=== PATIENT | female | born 1935 | race Caucasian/White ===

== ENCOUNTER → 2017-04-13 09:13 | Outpatient (CLI) | payer MEDICARE, SELFPAY ==
[2017-04-13 09:42] LABS: Basophils % 0.6 % (0.1-2.0); Eosinophils # 0.3 K/mm3 (0.0-0.4); Eosinophils % 3.9 % (0.1-12.0); Hematocrit 42.7 % (37.0-47.0); Hemoglobin 13.4 g/dL (12.2-16.2); Lymphocytes # 1.6 K/mm3 (0.7-4.5); Lymphocytes % 23.4 K/mm3 (10-50); Mean Corpuscular HGB Conc 31.3 g/dL (31.8-35.4); Mean Corpuscular Hemoglobin 26.9 pg (27.0-31.2); Mean Corpuscular Volume 86.1 fl (81-99); Mean Platelet Volume 8.1 fl (7.4-10.4); Monocytes # 0.5 K/mm3 (0.1-1.0); Neutrophils # 4.4 K/mm3 (1.8-7.8); Neutrophils % 65.1 % (37.0-80.0); Platelet Count 241 K/mm3 (142-424); Red Blood Count 4.96 M/mm3 (4.20-5.40); Red Cell Distribution Width 14.3 % (11.5-17.5); White Blood Count 6.8 K/mm3 (4.8-10.8)
[2017-04-13 11:36] LABS: Alanine Aminotransferase 19 U/L (12-78); Albumin Level 3.6 gm/dL (3.4-5.0); Albumin/Globulin Ratio 0.9 (1.1-1.8); Alkaline Phosphatase 177 U/L (46-116); Anion Gap 12.8 mEq/L (5-15); Aspartate Amino Transferase 17 U/L (15-37); Bilirubin,Total 0.4 mg/dL (0.2-1.0); Blood Urea Nitrogen 19 mg/dL (7-18); Carbon Dioxide 33 mmol/L (21.0-32.0); Chloride 98 mmol/L (98-107); Chol/HDL Ratio 4.1 (1-3.5); Cholesterol 267 mg/dL (140-200); Creatinine,Serum 0.96 mg/dL (0.55-1.02); Estimated Glomerular Filt Rate 56 ml/min (>60); Ferritin 23 ng/mL (8-388); GFR (African American) 67 ML/MIN (>60); Globulin 3.8 gm/dl (1.3-3.2); Glucose 102 mg/dL (74-106); HDL Cholesterol 65 mg/dL (29-89); LDL Cholesterol 178 mg/dL (0-130); Potassium 4.8 mmoL/L (3.5-5.1); Sodium 139 mmol/L (136-145); Thyroid Stimulating Hormone 2.23 uIU/ml (0.358-3.740); Total Protein,Serum 7.4 gm/dL (6.4-8.2); Triglycerides 119 mg/dL (30-200); VLDL Cholesterol 24 mg/dL (0-40)
[2017-04-14 18:31] LABS: Folate 8.9 ng/mL (>3.0); Vitamin B12 >2000 pg/mL (232-1245)
== END ==
PROVIDERS: PCP Internal Medicine Adolescent Medicine; Visit Provider Nurse Practitioner Family
DX: D64.9 Anemia, unspecified (principal); I10 Essential (primary) hypertension; E53.8 Deficiency of other specified B group vitamins
CPT/HCPCS: 36415; 80053; 80061; 82607; 82728; 82746; 84443; 85025

== ENCOUNTER → 2017-08-14 15:13 | Outpatient (CLI) | payer MEDICARE, SELFPAY ==
--- NOTE | 2017-08-14 15:19 | XR_ITS ---
XR chest 2V HISTORY: Follow-up pneumonia ITS.REASON: FU PNEEMONIA ORDERING PHYSICIAN: Fannie Byrd PATIENT AGE: 82 years COMPARISON: 08/04/2017 FINDINGS: There is cardiomegaly with mild pulmonary venous congestion consistent with mild chronic CHF. There remains increased density in the right mid to lower lung zone which could be due to some underlying pneumonia. There may be some pleural thickening posteriorly. The right lungs are clear. No acute bony pelvic. IMPRESSION: 1. Mild chronic CHF. 2. Persistent increased density in the right lower lung zone area which is indeterminate. CT may be of further value if clinically warranted. Underlying pneumonia or pleural thickening is considered
== END ==
PROVIDERS: PCP Internal Medicine Adolescent Medicine; Visit Provider Nurse Practitioner Family
DX: J18.1 Lobar pneumonia, unspecified organism (principal)
CPT/HCPCS: 71046

== ENCOUNTER → 2017-08-31 09:58 | Outpatient (CLI) | payer MEDICARE, SELFPAY | PROVIDERS: Visit Provider Nurse Practitioner Family | DX: R05 Cough (principal); J18.9 Pneumonia, unspecified organism | CPT/HCPCS: 87070; 87205 ==

== ENCOUNTER → 2017-09-03 13:36 | Outpatient (CLI) | payer MEDICARE, SELFPAY ==
--- NOTE | 2017-09-03 | CT_ITS ---
CT chest wo/w con HISTORY: ITS.REASON: CHRONIC COUGH ORDERING PHYSICIAN: Fannie Byrd PATIENT AGE: 82 years COMPARISON: None Technique: Axial images obtained without and with contrast. Sagittal and coronal reformatted images are also generated and reviewed. All CT scans at the facility use one or more dose reduction, viz: automated exposure control; ma/kV adjustment per patient size (including targeted exams where dose is matched to indication; i.e. head); or iterative reconstruction technique. FINDINGS: There are scattered small nodes in the mediastinum and asim the largest node is in the precarinal region at 1.6 x 1.3 cm. There are diffuse coronary artery calcifications. Normal heart size with no evidence of pericardial effusion. No evidence of aortic aneurysm or dissection. There is tortuosity of the thoracic aorta but no evidence of aneurysm. No central pulmonary embolus apparent atelectatic/fibrotic changes are present in the lung bases.. There is a 2 mm noncalcified nodule right upper lobe anterolaterally nonspecific There is some mild bronchial thickening in the lung bases nonspecific degenerative changes are present in the thoracic spine. There is a small hiatal hernia Upper abdominal images are unremarkable. IMPRESSION: 1. No evidence of aortic aneurysm. 2. Mild bibasilar atelectasis or fibrotic change with mild bronchial thickening. 3. No acute finding. 4. 2 mm noncalcified nodule present in the right upper lobe anterolaterally to small to characterize.
[2017-09-03 14:38] LABS: Basophils % 0.6 % (0.1-2.0); Eosinophils # 0.2 K/mm3 (0.0-0.4); Eosinophils % 2.5 % (0.1-12.0); Hematocrit 40.4 % (37.0-47.0); Hemoglobin 12.3 g/dL (12.2-16.2); Lymphocytes # 1.5 K/mm3 (0.7-4.5); Lymphocytes % 20.6 K/mm3 (10-50); Mean Corpuscular HGB Conc 30.5 g/dL (31.8-35.4); Mean Corpuscular Hemoglobin 26.4 pg (27.0-31.2); Mean Corpuscular Volume 86.3 fl (81-99); Mean Platelet Volume 8.4 fl (7.4-10.4); Monocytes # 0.4 K/mm3 (0.1-1.0); Monocytes % 6.1 % (1.7-9.3); Neutrophils % 70.2 % (37.0-80.0); Platelet Count 202 K/mm3 (142-424); Red Blood Count 4.68 M/mm3 (4.20-5.40); Red Cell Distribution Width 14.8 % (11.5-17.5); White Blood Count 7.2 K/mm3 (4.8-10.8)
[2017-09-03 15:01] LABS: Hemoglobin A1C 5.6 % (0.0-7.0)
[2017-09-03 15:11] LABS: Alanine Aminotransferase 17 U/L (12-78); Albumin Level 3.5 gm/dL (3.4-5.0); Alkaline Phosphatase 147 U/L (46-116); Anion Gap 13.1 mEq/L (5-15); Aspartate Amino Transferase 17 U/L (15-37); Bilirubin,Total 0.4 mg/dL (0.2-1.0); Blood Urea Nitrogen 27 mg/dL (7-18); Calcium 9.3 mg/dL (8.5-10.1); Carbon Dioxide 30 mmol/L (21.0-32.0); Chloride 100 mmol/L (98-107); Creatinine,Serum 1.49 mg/dL (0.55-1.02); Estimated Glomerular Filt Rate 33 ml/min (>60); GFR (African American) 40 ML/MIN (>60); Globulin 3.5 gm/dl (1.3-3.2); Glucose 99 mg/dL (74-106); Potassium 5.1 mmoL/L (3.5-5.1); Sodium 138 mmol/L (136-145)
[2017-09-06 06:17] LABS: Vitamin B12 >2000 pg/mL (232-1245)
== END ==
PROVIDERS: PCP Internal Medicine Adolescent Medicine; Visit Provider Nurse Practitioner Family
DX: R05 Cough (principal); J18.9 Pneumonia, unspecified organism; Z79.899 Other long term (current) drug therapy
CPT/HCPCS: 36415; 71270; 80053; 82607; 83036; 85025; Q9967

== ENCOUNTER → 2017-11-12 18:04 | Outpatient (REF) | payer MEDICARE, SELFPAY | LOC: LAB 18:04 | PROVIDERS: Visit Provider Podiatrist | DX: B35.1 Tinea unguium (principal) | CPT/HCPCS: 87102; 87206; 87220 ==

== ENCOUNTER → 2018-01-10 09:41 | Outpatient (CLI) | payer MEDICARE, SELFPAY ==
[2018-01-10 10:21] LABS: Basophils % 0.5 % (0.1-2.0); Eosinophils # 0.3 K/mm3 (0.0-0.4); Hematocrit 37.5 % (37.0-47.0); Hemoglobin 11.8 g/dL (12.2-16.2); Lymphocytes # 1.2 K/mm3 (0.7-4.5); Lymphocytes % 20.3 K/mm3 (10-50); Mean Corpuscular HGB Conc 31.4 g/dL (31.8-35.4); Mean Corpuscular Hemoglobin 27.4 pg (27.0-31.2); Mean Corpuscular Volume 87.5 fl (81-99); Mean Platelet Volume 7.5 fl (7.4-10.4); Monocytes # 0.4 K/mm3 (0.1-1.0); Neutrophils # 3.9 K/mm3 (1.8-7.8); Neutrophils % 67.3 % (37.0-80.0); Platelet Count 223 K/mm3 (142-424); Red Blood Count 4.28 M/mm3 (4.20-5.40); Red Cell Distribution Width 14.6 % (11.5-17.5); White Blood Count 5.9 K/mm3 (4.8-10.8)
[2018-01-10 10:50] LABS: Anion Gap 9.9 mEq/L (5-15); Blood Urea Nitrogen 16 mg/dL (7-18); Calcium 8.8 mg/dL (8.5-10.1); Carbon Dioxide 33 mmol/L (21.0-32.0); Chloride 102 mmol/L (98-107); Creatinine,Serum 0.85 mg/dL (0.55-1.02); Estimated Glomerular Filt Rate 64 ml/min (>60); GFR (African American) 77 ML/MIN (>60); Glucose 88 mg/dL (74-106); Potassium 4.9 mmoL/L (3.5-5.1); Sodium 140 mmol/L (136-145)
== END ==
PROVIDERS: PCP Internal Medicine Adolescent Medicine; Visit Provider Nurse Practitioner Family
DX: R79.89 Other specified abnormal findings of blood chemistry (principal)
CPT/HCPCS: 36415; 80048; 85025

== ENCOUNTER → 2018-01-25 14:19 | Outpatient (CLI) | payer MEDICARE, SELFPAY | PROVIDERS: Visit Provider Nurse Practitioner Family | DX: J18.9 Pneumonia, unspecified organism (principal) | CPT/HCPCS: 87070; 87077; 87186; 87205 ==

== ENCOUNTER → 2018-05-30 11:34 | Outpatient (CLI) | payer MEDICARE, SELFPAY ==
--- NOTE | 2018-05-30 11:43 | XR_ITS ---
XR hand RT min 3V HISTORY: The thyroid performed body, cyst at the DIP joint of the second digit ITS.REASON: RT FINGER CYST ORDERING PHYSICIAN: Fannie Byrd PATIENT AGE: 82 years COMPARISON: None FINDINGS: There are mild osteoarthritic changes at the DIP joint of the second digit at the PIP joint of the fifth digit with mild deformity of the distal aspect of the proximal phalanx of the fifth digit and may be due to an old fracture. 6 mm soft tissue density is present along the radial aspect of the DIP joint of the second digit and may represent the reported cyst. No radio opaque foreign bodies are evident. IMPRESSION: Mild osteoarthritis. No radiopaque foreign body. Small soft tissue lesion at the DIP joint of the second digit
== END ==
PROVIDERS: PCP Nurse Practitioner Family; Visit Provider Nurse Practitioner Family
DX: M67.449 Ganglion, unspecified hand (principal)
CPT/HCPCS: 73130

== ENCOUNTER → 2018-10-10 12:10 | Outpatient (CLI) | payer MEDICARE, SELFPAY ==
[2018-10-10 13:07] LABS: Basophils % 0.6 % (0.1-2.0); Eosinophils # 0.2 K/mm3 (0.0-0.4); Eosinophils % 2.7 % (0.1-12.0); Hemoglobin 11.5 g/dL (12.2-16.2); Lymphocytes # 1.2 K/mm3 (0.7-4.5); Lymphocytes % 16.6 % (10-50); Mean Corpuscular HGB Conc 30.2 g/dL (31.8-35.4); Mean Corpuscular Hemoglobin 25.6 pg (27.0-31.2); Mean Corpuscular Volume 84.9 fl (81-99); Mean Platelet Volume 8.9 fl (7.4-10.4); Monocytes # 0.4 K/mm3 (0.1-1.0); Neutrophils # 5.4 K/mm3 (1.8-7.8); Neutrophils % 75.2 % (37.0-80.0); Platelet Count 239 K/mm3 (142-424); Red Blood Count 4.47 M/mm3 (4.20-5.40); Red Cell Distribution Width 15.4 % (11.5-17.5); White Blood Count 7.1 K/mm3 (4.8-10.8)
[2018-10-10 15:12] LABS: Alanine Aminotransferase 13 U/L (12-78); Albumin Level 3.3 gm/dL (3.4-5.0); Albumin/Globulin Ratio 0.9 (1.1-1.8); Alkaline Phosphatase 170 U/L (46-116); Anion Gap 14.2 mEq/L (5-15); Aspartate Amino Transferase 8 U/L (15-37); Bilirubin,Total 0.3 mg/dL (0.2-1.0); Blood Urea Nitrogen 23 mg/dL (7-18); Calcium 9.1 mg/dL (8.5-10.1); Carbon Dioxide 30 mmol/L (21.0-32.0); Chloride 99 mmol/L (98-107); Creatinine,Serum 1.16 mg/dL (0.55-1.02); Estimated Glomerular Filt Rate 45 ml/min (>60); GFR (African American) 54 ML/MIN (>60); Globulin 3.6 gm/dl (1.3-3.2); Glucose 102 mg/dL (74-106); Potassium 5.2 mmoL/L (3.5-5.1); Sodium 138 mmol/L (136-145); Total Protein,Serum 6.9 gm/dL (6.4-8.2)
[2018-10-10 15:25] LABS: Hemoglobin A1C 6.2 % (0.0-7.0)
[2018-10-11 15:04] LABS: Vitamin B12 >2000 pg/mL (232-1245)
== END ==
PROVIDERS: Visit Provider Nurse Practitioner Family
DX: R73.03 Prediabetes (principal); I10 Essential (primary) hypertension; E53.8 Deficiency of other specified B group vitamins
CPT/HCPCS: 36415; 80053; 82607; 83036; 85025

== ENCOUNTER 2019-02-19 | Inpatient (IN) ==
[2019-02-19 00:36] LABS: Microscopic, Urine URINE MICROSCOPIC (MICROSCOPIC)
[2019-02-19 00:39] LABS: Appearance,Urine CLEAR (Clear); Bilirubin,Urine Negative (Negative); Blood, Urine Negative (Negative); Color,Urine YELLOW (Yellow); Glucose,Urine (UA) Negative (Negative); Ketones,Urine Negative (Negative); Leukocyte Esterase,Urine Negative (Negative); PH,Urine 5.5 (5.0-8.5); Protein,Urine Negative (Negative); Specific Gravity, Urine 1.015 (1.005-1.030); Urobilinogen,Urine 0.2 EU/dl (0.2)
[2019-02-19 00:50] LABS: Basophils % 0.3 % (0.1-2.0); Eosinophils # 0.1 K/mm3 (0.0-0.4); Eosinophils % 0.5 % (0.1-12.0); Hemoglobin 12.3 g/dL (12.2-16.2); Lymphocytes # 0.7 K/mm3 (0.7-4.5); Lymphocytes % 7.4 % (10-50); Mean Corpuscular HGB Conc 30.8 g/dL (31.8-35.4); Mean Corpuscular Volume 86.2 fl (81-99); Mean Platelet Volume 8.8 fl (7.4-10.4); Monocytes # 0.4 K/mm3 (0.1-1.0); Monocytes % 4.2 % (1.7-9.3); Neutrophils # 7.9 K/mm3 (1.8-7.8); Neutrophils % 87.5 % (37.0-80.0); Platelet Count 194 K/mm3 (142-424); Red Blood Count 4.64 M/mm3 (4.20-5.40); Red Cell Distribution Width 16.2 % (11.5-17.5); White Blood Count 9.1 K/mm3 (4.8-10.8)
[2019-02-19 01:00] LABS: Albumin Level 3.3 gm/dL (3.4-5.0); Albumin/Globulin Ratio 0.8 (1.1-1.8); Anion Gap 13.6 mEq/L (5-15); Bilirubin,Total 0.3 mg/dL (0.2-1.0); Calcium 8.7 mg/dL (8.5-10.1); Total Protein,Serum 7.3 gm/dL (6.4-8.2)
[2019-02-19 01:12] LABS: Bacteria,Urine 1+ /lpf; WBC,Urine Occasional #/hpf (0-3)
[2019-02-19 01:19] LABS: C-Reactive Protein 1.6 mg/dL (0.0-0.9)
[2019-02-19 01:36] LABS: Eosinophils % 1 % (0-3); Lymphocytes % 2 % (10-50); Neutrophils % 96 % (42-76); Ovalocytes 1+; Stomatocytes 1+; Total Cells Counted 100
--- NOTE | 2019-02-19 03:17 | Emergency Department Note ---
ED Disposition Clinical Impression: Renal insufficiency, Obesity (BMI 30-39.9) CAP (community acquired pneumonia) Qualifiers: Laterality: right Lung location: lower lobe of lung Qualified Code(s): J18.9 - Pneumonia, unspecified organism Disposition: Admitted as Observation Condition on Discharge: Fair Referrals: Per Hoyos MD [Primary Care Provider] - - Critical Care Critical Care Time: No Attestation: On 02/19/19, the high probability of a clinically significant, sudden or life threatening deterioration of the following system(s) required my full and direct attention, intervention and personal management. The time I documented below is in addition to time spent performing reported procedures but includes the following listed in this critical care notation. Medical Decision Making - Medical Records Medical records reviewed: Yes: I reviewed the patient's medical records. - Elie Inquiry Pt receiving controlled substance: No Vital Signs: 02/19/19 00:02 02/19/19 00:21 02/19/19 03:48 Temperature 100.6 F H 98.5 F Temperature Source Oral Oral Oral Pulse Rate [Right] 93 H Respiratory Rate 20 20 Blood Pressure [Right Arm] 150/79 H Blood Pressure Mean [Right Arm] 102 Blood Pressure Source [Right Arm] Automatic Cuff Blood Pressure Position [Right Arm] Supine 02 Sat by Pulse Oximetry 89 L 89 L Oxygen Delivery Method Room Air Room Air - Lab Data Lab results reviewed: Yes: I reviewed the patient's lab results. Lab Results 02/19/19 00:10: Urine Color Yellow, Urine Appearance Clear, Urine pH 5.5, Ur Specific [place] 1.015, Urine Protein Negative, Urine Glucose (UA) Negative, Urine Ketones Negative, Urine Blood Negative, Urine Nitrate Negative, Urine Bilirubin Negative, Urine Urobilinogen 0.2, Ur Leukocyte Esterase Negative, Urine WBC Occasional, Ur Squamous Epith Cells 5-10, Urine Bacteria 1+ 02/19/19 00:35: WBC 9.1, RBC 4.64, Hgb 12.3, Hct 40.0, MCV 86.2, MCH 26.6 L, MC HC 30.8 L, RDW 16.2, Plt Count 194, MPV 8.8, Neut % (Auto) 87.5 H, Lymph % (Auto) 7.4 L, [place] % (Auto) 4.2, Eos % (Auto) 0.5, Baso % (Auto) 0.3, Neut # (Auto) 7.9 H, Lymph # (Auto) 0.7, [place] # (Auto) 0.4, Eos # (Auto) 0.1, Baso # (Auto) 0.0, Total Counted 100, Neutrophils % (Manual) 96 H, Lymphocytes % (Manual) 2 L, Eosinophils % (Manual) 1, Basophils % (Manual) 1.0, Platelet Estimate Normal, Ovalocytes 1+, Stomatocytes 1+ 02/19/19 00:35: Sodium 138, Potassium 4.6, Chloride 102, Carbon Dioxide 27, Anion Gap 13.6, BUN 27 H, Creatinine 1.23 H, Estimated Creat Clear -44 L, Estimated GFR 42 L, Est GFR ( Amer) 50 L, Glucose 130 H, Calcium 8.7, Total Bilirubin 0.3, AST 15, ALT 11 L, Alkaline Phosphatase 166 H, Total Protein 7.3, Albumin 3.3 L, Globulin 4.0 H, Albumin/Globulin Ratio 0.8 L 02/19/19 00:35: Lactate 1.3 02/19/19 00:35: ESR 78 H 02/19/19 00:35: Troponin I < 0.02, C-Reactive Protein 1.6 H 02/19/19 04:01: Troponin I < 0.02 02/19/19 04:08: Influenza Type A Ag Negative, Influenza Type B Ag Negative Result diagrams: 02/19/19 00:35 02/19/19 00:35 Orders (Tests/Meds): ED MEDICATIONS Generic Name Dose Route Start Last Admin Trade Name Freq PRN Reason Stop Dose Admin Sodium Chloride 1,000 mls @ 999 mls/hr 02/19/19 00:30 02/19/19 00:50 Sod Chlor 0.9% 1000ml Bag IV 02/19/19 01:30 999 mls/hr .Q1H1M YESI Administration Azithromycin 500 mg/ Sodium 250 mls @ 250 mls/hr 02/19/19 03:15 02/19/19 03:33 Chloride IV 03/05/19 03:14 250 mls/hr Q24H YESI Administration Protocol Ceftriaxone Sodium 1 gm/ 50 mls @ 100 mls/hr 02/19/19 03:15 02/19/19 03:19 Sodium Chloride IV 03/05/19 03:14 100 mls/hr Q24H YESI Administration Protocol Discontinued Medications Generic Name Dose Route Start Last Admin Trade Name Caitie PRN Reason Stop Dose Admin Acetaminophen 650 mg 02/19/19 00:32 02/19/19 00:50 Acetaminophen 325mg Tab PO 02/19/19 00:33 325 mg ONCE ONE Administration Methylprednisolone Sodium Succinate 125 mg 02/19/19 00:30 02/19/19 00:50 Solu-Medrol 125mg/2ml Vial IV 02/19/19 00:31 125 mg ONCE ONE Administration ORDERS Category Date Time Status Troponin I Q3H Lab 02/19/19 07:00 Ordered Blood Culture Stat Micro 02/19/19 00:35 Received Sputum Culture & Gram Stain Stat Micro 02/19/19 00:35 Results - Radiology Data #1 Image(s): Chest Image Reviewed: Yes I reviewed the patient's radiology image Preliminary Findings: Abnormal (patchy changes rt base ) - ECG Data Tracing #1 Normal Sinus Rhythm: Yes Ischemic changes: non-specific ST-T wave changes - Physician Consults Physician Consulted: jose martin Reason -: Admission - NESSA Score for Non-Stemi Age of Patient: 80-89 years old Heart Rate: 90-109 bpm Systolic Blood Pressure: 140-159 mmHg Serum Creatinine: 1.20-1.59 mg/dl CHF [place] Class: I-No CHF Other Risk Factors: None Non-Stemi Risk Score: 140 Resp/SOB HPI - General Chief Complaint: Fever Stated Complaint: Fever,cough,confused Time Seen by Provider: 02/19/19 00:10 Mode of Arrival: Wheelchair Source of Information: Patient, Spouse, Medical Record Limitations: No Limitations Description of Symptoms (Recalled from ER Triage Doc. by RN): Pt states she had a fever with confusion at home tonight - History of Present Illness pt with fever with cough and confusion worse tonight - no vomiting reported MD Complaint: shortness of breath, cough Onset (ago): day(s) Severity: moderate Associated symptoms: fever, cough Treatment prior to arrival: none - Related Data Home oxygen amount: none Home Medications Medication Instructions Recorded Confirmed aspirin 81 mg tablet,delayed 81 mg PO ONCE 05/21/17 02/19/19 release atenolol 50 mg tablet 50 mg PO Q12H 05/21/17 02/19/19 cyanocobalamin (vit B-12) 1,000 2,500 mcg PO ONCE tab 05/21/17 02/19/19 mcg tablet furosemide 20 mg tablet 40 mg PO DAILY tab 05/21/17 02/19/19 gabapentin 300 mg capsule 300 mg PO Q6H cap 05/21/17 02/19/19 hydrocodone 10 mg-acetaminophen 1 tab PO Q6H 05/21/17 02/19/19 325 mg tablet lisinopril 20 mg tablet 20 mg PO ONCE 05/21/17 02/19/19 potassium chloride ER 10 mEq 10 meq PO DAILY 90 Days #90 11/12/17 02/19/19 tablet,extended release(part/cryst) Allergies Allergy/AdvReac Type Severity Reaction Status Date / Time No Known Allergies Allergy Verified 12/19/18 10:04 [facility] History - Hepatitis A Screen Drug use history?: No High risk sexual behaviors?: No History of sexually transmitted infection?: No Currently employed?: No Childcare worker?: No Do you have indoor plumbing?: Yes Do you have electricity?: Yes Attestation statement:: This patient has been screened for Hepatitis A risk factors. I have reviewed the patient's past medical history: Yes Medical History: Reports:: Hypertension Denies:: Cancer, Diabetes Mellitus Type 1, Diabetes Mellitus Type 2, Internal Pacemaker, MRSA Other Medical History: Reports: Arthritis Laterality Cases: Right: Arthroscopy Knee, Bilateral: Tonsillectomy Other Surgeries: Yes: Appendectomy, Cholecystectomy, Hysterectomy-Total. No: Pacemaker Amputation: No Fractures: No Comment: cyst removed - Social History Smoking Status: Never smoker Alcohol Intake: never Alcohol Intake Frequency:: other Occupational Status: retired Family Hx:: Unable to obtain ROS Obtained: Yes All systems reviewed & no additional complaints - Constitutional Constitutional: Reports fever(s), Reports weakness - Eyes Eyes: Denies change in vision - ENT Ears, Nose, Mouth, and Throat: Denies sore throat - Cardiovascular Cardiovascular: Denies chest pain - Respiratory Respiratory: Yes as per HPI, Yes cough, No non-productive cough - Gastrointestinal Gastrointestingal: Denies: abdominal pain, vomiting - Genitourinary Female Genitourinary: Denies hematuria - Musculoskeletal Musculoskeletal: Denies joint pain, Denies joint swelling, Denies neck pain - Integumentary/Breasts Skin/Breast: Denies rash - Neurologic Neurologic: Reports as per HPI, Reports confusion, Denies focal weakness, Denies headache(s), Denies loss of vision, Denies seizure-like activity Physical Exam - General General appearance: alert - Head Head exam: normocephalic - Eye Eye exam: Present: PERRL, EOMI. Absent: scleral icterus - ENT ENT exam: Present: mucous membranes dry - Neck Neck exam: Present: trachea midline - Respiratory Respiratory exam: Present: other (bilat rhonchi ). Absent: respiratory distress - Cardiovascular Cardiovascular exam: Present: regular rate, systolic murmur, +S4 - Abdominal Exam Abdominal exam: Present: soft - Extremities Exam Extremities exam: Present: pedal edema. Absent: calf tenderness - Neurological Exam Neurological exam: Present: alert, CN II-XII intact. Absent: motor sensory deficit - Skin Skin exam: Absent: rash
--- NOTE | 2019-02-19 07:24 | Pharmacy Consult Notes ---
[facility] Pharmacy VTE Monitoring - Patient Demographics Admission date: 02/18/19 Report Date: 02/19/19 Time: 07:23 Allergies/Adverse Reactions: Patient Allergies No Known Allergies Allergy (Verified 12/19/18 10:04) Height: 1.52 m Weight: 88.904 kg Patient Problems: Current Active Problems Renal insufficiency (Acute) Obesity (BMI 30-39.9) (Acute) CAP (community acquired pneumonia) (Acute) - VTE Risk Labs: VTE Related Lab Results Hgb 12.3 g/dL (12.2-16.2) 02/19/19 00:35 Hct 40.0 % (37.0-47.0) 02/19/19 00:35 Plt Count 194 K/mm3 (142-424) 02/19/19 00:35 BUN 27 mg/dL (7-18) H 02/19/19 00:35 Creatinine 1.23 mg/dL (0.55-1.02) H 02/19/19 00:35 Estimated Creat Clear -44 mL/min (50-200) L 02/19/19 00:35 Was VTE Risk Assessment Performed: Yes VTE Score: 4 VTE Risk Level: Low Risk Clinical Trial Participant: No - Prophylaxis VTE Prophylaxis Ordered?: Yes Types of VTE Prophylaxis: TEDS Knee High
--- NOTE | 2019-02-19 08:31 | History & Physical Report ---
*Admission Date: 02/18/19 *Chief complaint: Cough/congestion *History of present illness: 83-year-old white female with history of CHF, history of COPD and oxygen requirements, who resented to the emergency department cough, congestion and fever, found to have community acquired pneumonia and admitted to hospital given her multiple comorbidities. [facility] History I have reviewed the patient's past medical history: Yes Medical History: Reports:: Hypertension Denies:: Cancer, Diabetes Mellitus Type 1, Diabetes Mellitus Type 2, Internal Pacemaker, MRSA *Have you ever received a pneumonia vaccine?: Yes *Have you received a flu vaccine this season?: Yes Other Medical History: Reports: Arthritis Laterality Cases: Right: Arthroscopy Knee, Bilateral: Tonsillectomy Other Surgeries: Yes: Appendectomy, Cholecystectomy, Colonoscopy, Hysterectomy- Total. No: Pacemaker Amputation: No Fractures: No - *Social History Smoking Status: Never smoker Alcohol Intake: never Alcohol Intake Frequency:: other *Occupational Status:: retired *Travel in the last 8 weeks: None Family Hx:: Unable to obtain Review of Systems - Review of Systems Review of systems:: pertinent systems reviewed and negative unless documented below - Constitutional Reports malaise, Reports weakness - Eyes Denies blind spots - ENT Reports poor balance, Reports dizziness, Denies abnormal hearing - *Cardiovascular Reports shortness of breath, Reports shortness of breath with activity, Denies chest pain - *Respiratory Reports change in phlegm color, Reports chest congestion - *Gastrointestinal Denies abdominal pain - *Neurologic Reports confusion, Reports weakness, Denies localized weakness, Denies headache(s), Denies loss of vision, Denies seizure-like activity Meds Home Medications Medication Instructions Recorded Confirmed Type aspirin 81 mg tablet,delayed 81 mg PO DAILY 05/21/17 02/19/19 History release atenolol 50 mg tablet 50 mg PO HS 05/21/17 02/19/19 History cyanocobalamin (vit B-12) 1,000 2,500 mcg PO DAILY tab 05/21/17 02/19/19 History mcg tablet furosemide 20 mg tablet 20 mg PO BID tab 05/21/17 02/19/19 History gabapentin 300 mg capsule 300 mg PO Q6H cap 05/21/17 02/19/19 History hydrocodone 10 mg-acetaminophen 1 tab PO Q6HP PRN 05/21/17 02/19/19 History 325 mg tablet lisinopril 20 mg tablet 20 mg PO DAILY 05/21/17 02/19/19 History potassium chloride ER 10 mEq 10 meq PO DAILY 90 Days #90 11/12/17 02/19/19 History tablet,extended release(part/cryst) Allergies Allergy/AdvReac Type Severity Reaction Status Date / Time No Known Allergies Allergy Verified 12/19/18 10:04 Exam Vital signs and Labs for Last 24 Hours: Temp Pulse Resp BP Pulse Ox 98.9 F 100 H 20 140/74 93 L 02/19/19 05:45 02/19/19 06:12 02/19/19 05:45 02/19/19 05:45 02/19/19 05:45 Laboratory Results - last 24 hr 02/19/19 00:10: Urine Color Yellow, Urine Appearance Clear, Urine pH 5.5, Ur Specific [place] 1.015, Urine Protein Negative, Urine Glucose (UA) Negative, Urine Ketones Negative, Urine Blood Negative, Urine Nitrate Negative, Urine Bilirubin Negative, Urine Urobilinogen 0.2, Ur Leukocyte Esterase Negative, Urine WBC Occasional, Ur Squamous Epith Cells 5-10, Urine Bacteria 1+ 02/19/19 00:35: WBC 9.1, RBC 4.64, Hgb 12.3, Hct 40.0, MCV 86.2, MCH 26.6 L, MCHC 30.8 L, RDW 16.2, Plt Count 194, MPV 8.8, Neut % (Auto) 87.5 H, Lymph % (Auto) 7.4 L, [place] % (Auto) 4.2, Eos % (Auto) 0.5, Baso % (Auto) 0.3, Neut # (Auto) 7.9 H, Lymph # (Auto) 0.7, [place] # (Auto) 0.4, Eos # (Auto) 0.1, Baso # (Auto) 0.0, Total Counted 100, Neutrophils % (Manual) 96 H, Lymphocytes % (Manual) 2 L, Eosinophils % (Manual) 1, Basophils % (Manual) 1.0, Platelet Estimate Normal, Ovalocytes 1+, Stomatocytes 1+ 02/19/19 00:35: Sodium 138, Potassium 4.6, Chloride 102, Carbon Dioxide 27, Anion Gap 13.6, BUN 27 H, Creatinine 1.23 H, Estimated Creat Clear -44 L, Estimated GFR 42 L, Est GFR ( Amer) 50 L, Glucose 130 H, Calcium 8.7, Total Bilirubin 0.3, AST 15, ALT 11 L, Alkaline Phosphatase 166 H, Total Protein 7.3, Albumin 3.3 L, Globulin 4.0 H, Albumin/Globulin Ratio 0.8 L 02/19/19 00:35: Lactate 1.3 02/19/19 00:35: ESR 78 H 02/19/19 00:35: Troponin I < 0.02, C-Reactive Protein 1.6 H 02/19/19 03:35: Magnesium 1.8 02/19/19 04:01: Troponin I < 0.02 02/19/19 04:08: Influenza Type A Ag Negative, Influenza Type B Ag Negative 02/19/19 07:15: Troponin I < 0.02 I & O for Last 24 hours: Intake & Output 02/16/19 02/17/19 02/18/19 02/19/19 11:59 11:59 11:59 11:59 Weight 196 lb Microbiology Reports for the Last 24 Hours: Microbiology 02/19/19 00:35 Sputum - Expectorated Sputum Gram Stain - Final Narrative: Patient is alert. Oriented x3. Wishes to go home. Oropharynx clear. No JVD. Lungs have rhonchi and crackles throughout. Abdomen soft. Heart rate regular. No edema or clubbing. Neurologic exam intact. Assessment and Plan (1) CHF (congestive heart failure), NYHA class I Current visit: Yes Status: Acute Qualifiers: Congestive heart failure type: combined Congestive heart failure chronicity: chronic Qualified Code(s): I50.42 - Chronic combined systolic (congestive) and diastolic (congestive) heart failure Category: Medical Code(s): I50.9 - Heart failure, unspecified (2) COPD (chronic obstructive pulmonary disease) with chronic bronchitis Current visit: Yes Status: Acute Category: Medical Code(s): J44.9 - Chronic obstructive pulmonary disease, unspecified (3) CAP (community acquired pneumonia) Current visit: Yes Status: Acute Qualifiers: Laterality: right Lung location: lower lobe of lung Qualified Code(s): J18.9 - Pneumonia, unspecified organism Category: Medical Code(s): J18.9 - Pneumonia, unspecified organism (4) Obesity (BMI 30-39.9) Current visit: Yes Status: Acute Category: Medical Code(s): E66.9 - Obesity, unspecified (5) Renal insufficiency Current visit: Yes Status: Acute Category: Medical Code(s): N28.9 - Disorder of kidney and ureter, unspecified - Assessment and plan all Dx Assessment and Plan for all problems:: I agree with admission given her multiple comorbidities. Await culture results. Check labs tomorrow. Given her cardiac issues and COPD problems teasing out wh ether or not she actually has a lobar pneumonia may be difficult. Reimage tomorrow with nonportable chest x-ray if no improvement.
[2019-02-20 06:47] LABS: Basophils % 0.2 % (0.1-2.0); Eosinophils % 0.1 % (0.1-12.0); Hematocrit 36.6 % (37.0-47.0); Hemoglobin 11.1 g/dL (12.2-16.2); Lymphocytes # 0.8 K/mm3 (0.7-4.5); Lymphocytes % 5.9 % (10-50); Mean Corpuscular HGB Conc 30.4 g/dL (31.8-35.4); Mean Corpuscular Volume 88.6 fl (81-99); Mean Platelet Volume 8.8 fl (7.4-10.4); Monocytes # 0.6 K/mm3 (0.1-1.0); Monocytes % 4.1 % (1.7-9.3); Neutrophils # 12.5 K/mm3 (1.8-7.8); Neutrophils % 89.7 % (37.0-80.0); Platelet Count 179 K/mm3 (142-424); Red Blood Count 4.13 M/mm3 (4.20-5.40); Red Cell Distribution Width 16.6 % (11.5-17.5)
[2019-02-20 07:15] LABS: Anion Gap 11.3 mEq/L (5-15); Calcium 8.4 mg/dL (8.5-10.1)
[2019-02-20 08:12] LABS: Lymphocytes % 5 % (10-50); Monocytes % 9 % (2-9); Neutrophils % 86 % (42-76); RBC Morphology Normal; Total Cells Counted 100
--- NOTE | 2019-02-20 11:00 | Discharge Summary ---
General - General Admission date:: 02/19/19 Discharge date: 02/20/19 HPI HPI: 83-year-old white female with history of CHF, history of COPD and oxygen requirements, who resented to the emergency department cough, congestion and fever, found to have community acquired pneumonia and admitted to hospital given her multiple comorbidities. Hospital Course Hospital Course: Admitted for pneumonia. Tolerated IV antibiotics and supplemental oxygen. Symptoms improving. This morning states she feels much better. Denies any fever, nausea, vomiting. Does states she feels short of breath however. Was assessed for oxygen on room air and found to have O2 sats of 87. Will set up with oxygen in the outpatient setting. Plan to continue oral antibiotics for total of 7 days for community-acquired pneumonia therapy. Follow-up in the office in a week for reassessment. Patient otherwise hemodynamically stable. Tolerating good p.o. intake. Sitting in bedside chair on exam today Objective Vital signs: Temp Pulse Resp BP Pulse Ox 97.7 F 80 18 120/60 98 02/20/19 08:00 02/20/19 08:00 02/20/19 08:00 02/20/19 08:00 02/20/19 08:00 Narrative: Patient is alert. Oriented x3. Sitting in bedside chair on supplemental oxygen Oropharynx clear. No JVD. Mucous membranes Lungs with coarse crackles in right lower lobe. Otherwise clear to auscultation throughout anterior and left posterior lung [place] Heart rate regular, no murmur Abdomen soft. No edema or clubbing. Neurologic exam intact. Results Labs on day of discharge: Labs from last 24 hours 02/20/19 02/20/19 06:21 06:21 WBC 14.0 H D RBC 4.13 L Hgb 11.1 L Hct 36.6 L MCV 88.6 MCH 26.9 L MCHC 30.4 L RDW 16.6 Plt Count 179 MPV 8.8 Neut % (Auto) 89.7 H Lymph % (Auto) 5.9 L [place] % (Auto) 4.1 Eos % (Auto) 0.1 Baso % (Auto) 0.2 Neut # (Auto) 12.5 H Lymph # (Auto) 0.8 [place] # (Auto) 0.6 Eos # (Auto) 0.0 Baso # (Auto) 0.0 Total Counted 100 Neutrophils % (Manual) 86 H Lymphocytes % (Manual) 5 L Monocytes % (Manual) 9 Platelet Estimate Normal RBC Morphology Normal Sodium 143 Potassium 4.3 Chloride 109 H Carbon Dioxide 27 Anion Gap 11.3 BUN 24 H Creatinine 0.86 D Estimated Creat Clear 59 Estimated GFR 63 Est GFR ( Amer) 76 D Glucose 103 Calcium 8.4 L Preliminary micro results at discharge 02/19/19 00:35 Sputum Culture - Preliminary Sputum - Expectorated Sputum DS: Diagnosis - Discharge Diagnosis (1) CHF (congestive heart failure), NYHA class I Status: Chronic (2) COPD (chronic obstructive pulmonary disease) with chronic bronchitis Status: Chronic (3) CAP (community acquired pneumonia) Status: Acute (4) Obesity (BMI 30-39.9) Status: Chronic (5) Renal insufficiency Status: Resolved Discharge Plan - Patient Discharge Instructions ACTIVITY: Continue current activity DIET: continue same diet Patient Instructions: DI for Pneumonia -- Adult - Follow up Plan Follow up with: Fannie Byrd APRN [Nurse Practitioner] - Disposition: Home, Self-[facility] Medications: Home Medications Medication Instructions Recorded Confirmed Type aspirin 81 mg tablet,delayed 81 mg PO DAILY 05/21/17 02/19/19 History release atenolol 50 mg tablet 50 mg PO HS 05/21/17 02/19/19 History cyanocobalamin (vit B-12) 1,000 2,500 mcg PO DAILY tab 05/21/17 02/19/19 History mcg tablet furosemide 20 mg tablet 20 mg PO BID tab 05/21/17 02/19/19 History gabapentin 300 mg capsule 600 mg PO Q6H cap 05/21/17 02/19/19 History hydrocodone 10 mg-acetaminophen 1 tab PO Q6HP PRN 05/21/17 02/19/19 History 325 mg tablet lisinopril 20 mg tablet 20 mg PO DAILY 05/21/17 02/19/19 History potassium chloride ER 10 mEq 10 meq PO DAILY 90 Days #90 11/12/17 02/19/19 History tablet,extended release(part/cryst) Azithromycin [Azithromycin 500mg 500 mg PO DAILY 1 Days #1 tab 02/20/19 Rx Tab] Cefdinir [Omnicef 300mg Capsule] 300 mg PO BID 5 Days #10 cap 02/20/19 Rx Prescriptions/Medication Reconciliation: Continued gabapentin 300 mg capsule 600 mg PO Q6H cap lisinopril 20 mg tablet 20 mg PO DAILY aspirin 81 mg tablet,delayed release 81 mg PO DAILY cyanocobalamin (vit B-12) 1,000 mcg tablet 2,500 mcg PO DAILY tab atenolol 50 mg tablet 50 mg PO HS hydrocodone 10 mg-acetaminophen 325 mg tablet 1 tab PO Q6HP PRN PRN Reason: PAIN potassium chloride ER 10 mEq tablet,extended release(part/cryst) 10 meq PO DAILY 90 Days #90 furosemide 20 mg tablet 20 mg PO BID tab - Problem Reconciliation Problems Reviewed?: Yes
--- NOTE | 2019-02-21 16:40 | Electrocardiograph Report ---
APPROVED REPORT Exam: Resting ECG HR:90 bpm ECG Measurements Heart Rate 90 AXES SC 174 P 41 QRSd 96 QRS -30 QT 352 T49 QTc 430 <Conclusion> Normal sinus rhythm Left axis deviation Abnormal ECG Electronically signed by : Per Hoyos, 02/21/2019 16:40:26
== END 2019-02-20 13:15 | disposition home or self-care (01) | DRG 194 ==
LOC: 2ND → ER → OBSVTOIN 05:33 → 2ND 05:33
PROVIDERS: ADMIT Internal Medicine Adolescent Medicine; ATTEND Internal Medicine Adolescent Medicine
CPT/HCPCS: 36415; 71020; 71046; 80048; 80053; 81001; 83605; 83735; 84484; 85007; 85025; 85651; 86140; 87040; 87070; 87077; 87186; 87205; 87275; 87276; 93005; 94640; 94761; 96365; 96367; 96375; 99285; J0456

== ENCOUNTER → 2019-07-31 10:47 | Outpatient (CLI) | payer MEDICARE, SELFPAY ==
[2019-07-31 11:26] LABS: Basophils # 0.1 K/mm3 (0-0.2); Eosinophils # 0.3 K/mm3 (0.0-0.4); Eosinophils % 3.7 % (0.1-12.0); Hematocrit 38.1 % (37.0-47.0); Hemoglobin 11.6 g/dL (12.2-16.2); Lymphocytes # 1.1 K/mm3 (0.7-4.5); Lymphocytes % 15.1 % (10-50); Mean Corpuscular HGB Conc 30.4 g/dL (31.8-35.4); Mean Corpuscular Hemoglobin 25.3 pg (27.0-31.2); Mean Corpuscular Volume 83.3 fl (81-99); Mean Platelet Volume 8.9 fl (7.4-10.4); Monocytes # 0.4 K/mm3 (0.1-1.0); Monocytes % 5.5 % (1.7-9.3); Neutrophils # 5.4 K/mm3 (1.8-7.8); Neutrophils % 74.6 % (37.0-80.0); Platelet Count 257 K/mm3 (142-424); Red Blood Count 4.58 M/mm3 (4.20-5.40); Red Cell Distribution Width 15.6 % (11.5-17.5); White Blood Count 7.2 K/mm3 (4.8-10.8)
[2019-07-31 12:29] LABS: Alanine Aminotransferase 10 U/L (12-78); Albumin/Globulin Ratio 1.4 (1.1-1.8); Alkaline Phosphatase 153 U/L (38-126); Aspartate Amino Transferase 20 U/L (14-36); Blood Urea Nitrogen 15 mg/dl (7-17); Calcium 9.1 mg/dl (8.4-10.2); Carbon Dioxide 37 mmol/L (22.0-30.0); Chloride 94 mmol/L (98-107); Estimated Glomerular Filt Rate 68 ml/min (>60); GFR (African American) 83 ML/MIN (>60); Globulin 2.9 g/dL (1.3-3.2); Glucose 109 mg/dl (74-100); Sodium 136 mmol/L (136-145); Total Protein,Serum 6.9 g/dl (6.3-8.2)
[2019-07-31 12:30] LABS: Bilirubin,Total 0.1 mg/dl (0.2-1.3)
[2019-08-01 07:39] LABS: Vitamin B12 >2000 pg/mL (232-1245)
== END ==
PROVIDERS: Visit Provider Nurse Practitioner Family
DX: I10 Essential (primary) hypertension (principal); E53.8 Deficiency of other specified B group vitamins
CPT/HCPCS: 36415; 80053; 82607; 85025

== ENCOUNTER → 2020-03-02 10:08 | Outpatient (CLI) | payer MEDICARE, SELFPAY ==
[2020-03-02 11:00] LABS: Basophils # 0.1 K/mm3 (0-0.2); Basophils % 0.9 % (0.1-2.0); Eosinophils # 0.3 K/mm3 (0.0-0.4); Eosinophils % 4.8 % (0.1-12.0); Hematocrit 37.3 % (37.0-47.0); Hemoglobin 11.6 g/dL (12.2-16.2); Lymphocytes # 1.1 K/mm3 (0.7-4.5); Lymphocytes % 16.5 % (10-50); Mean Corpuscular HGB Conc 31.2 g/dL (31.8-35.4); Mean Corpuscular Hemoglobin 26.1 pg (27.0-31.2); Mean Corpuscular Volume 83.7 fl (81-99); Mean Platelet Volume 8.2 fl (7.4-10.4); Monocytes # 0.5 K/mm3 (0.1-1.0); Monocytes % 7.4 % (1.7-9.3); Neutrophils # 4.5 K/mm3 (1.8-7.8); Neutrophils % 70.5 % (37.0-80.0); Platelet Count 233 K/mm3 (142-424); Red Blood Count 4.45 M/mm3 (4.20-5.40); Red Cell Distribution Width 14.6 % (11.5-17.5); White Blood Count 6.3 K/mm3 (4.8-10.8)
[2020-03-02 11:29] LABS: Alanine Aminotransferase 11 U/L (12-78); Albumin Level 3.8 g/dl (3.5-5.0); Albumin/Globulin Ratio 1.3 (1.1-1.8); Alkaline Phosphatase 157 U/L (38-126); Aspartate Amino Transferase 21 U/L (14-36); Bilirubin,Total 0.4 mg/dl (0.2-1.3); Blood Urea Nitrogen 14 mg/dl (7-17); Calcium 8.9 mg/dl (8.4-10.2); Carbon Dioxide 39 mmol/L (22.0-30.0); Chloride 92 mmol/L (98-107); Estimated Glomerular Filt Rate 68 ml/min (>60); GFR (African American) 82 ML/MIN (>60); Glucose 94 mg/dl (74-100); Sodium 137 mmol/L (136-145); Total Protein,Serum 6.8 g/dl (6.3-8.2)
[2020-03-02 12:30] LABS: Vitamin B12 > 1000 pg/mL (239-931)
== END ==
PROVIDERS: Visit Provider Nurse Practitioner Family
DX: I10 Essential (primary) hypertension (principal); E53.8 Deficiency of other specified B group vitamins
CPT/HCPCS: 36415; 80053; 82607; 85025

== ENCOUNTER 2020-03-12 09:05 | Inpatient (IN) | payer MEDICARE, SELFPAY ==
[2020-03-12] VITALS (13 sets, daily range): BP systolic 111–141; BP diastolic 57–81; PULSE 71–84; RESP 16–26; TEMP 37.1–37.5; O2SAT 84–100; BMI 44.2; BMI 43.2; BMI 43.1
--- NOTE | 2020-03-12 09:10 | HMH.EDAMS ---
ED Disposition Clinical Impression: COVID-19, Acute respiratory failure with hypoxia, ARPIT (acute kidney injury), Transaminitis, Obesity (BMI 30-39.9), Elevated brain natriuretic peptide (BNP) level Disposition: Admitted As Inpatient Condition on Discharge: Fair Referrals: Per Hoyos MD [Primary Care Provider] - Time of Disposition: 12:59 - Critical Care Critical Care Time: No Attestation: On , the high probability of a clinically significant, sudden or life threatening deterioration of the following system(s) required my full and direct attention, intervention and personal management. The time I documented below is in addition to time spent performing reported procedures but includes the following listed in this critical care notation. Medical Decision Making - Elie Inquiry Pt receiving controlled substance: No Vital Signs: 03/12/20 09:06 03/12/20 09:07 03/12/20 10:00 Temperature 99.2 F Temperature Source Oral Pulse Rate [Radial] 83 84 Respiratory Rate 26 H 20 Blood Pressure [Right Arm] 127/76 117/65 Blood Pressure Mean [Right Arm] 93 82 Blood Pressure Source [Right Arm] Blood Pressure Position [Right Arm] Sitting Sitting 02 Sat by Pulse Oximetry 84 L 96 96 Oxygen Delivery Method Room Air Nasal Cannula Nasal Cannula Oxygen Flow Rate (LPM) 4 3 03/12/20 10:31 03/12/20 11:00 03/12/20 11:30 Temperature Temperature Source Pulse Rate [Radial] 71 76 75 Respiratory Rate 16 20 22 Blood Pressure [Right Arm] 130/62 141/81 H 113/60 Blood Pressure Mean [Right Arm] 84 101 77 Blood Pressure Source [Right Arm] Automatic Cuff Blood Pressure Position [Right Arm] Sitting Sitting Sitting 02 Sat by Pulse Oximetry 100 100 98 Oxygen Delivery Method Nasal Cannula Nasal Cannula Oxygen Flow Rate (LPM) 3 3 03/12/20 12:00 Temperature Temperature Source Pulse Rate [Radial] 79 Respiratory Rate 22 Blood Pressure [Right Arm] 111/61 Blood Pressure Mean [Right Arm] 77 Blood Pressure Source [Right Arm] Blood Pressure Position [Right Arm] Sitting 02 Sat by Pulse Oximetry 96 Oxygen Delivery Method Nasal Cannula Oxygen Flow Rate (LPM) 3 - Lab Data Lab Results 03/12/20 09:20: Chlamy pneumoniae PCR Not detected, Adenovirus (PCR) Not detected, B. pertussis DNA (PCR) Not detected, Coronavirus OC43 (PCR) Not detected, Coronavirus HKU1 (PCR) Not detected, Coronavirus 229E (PCR) Not detected, SARS-CoV-2 (PCR) Detected A, Coronavirus NL63 (PCR) Not detected, Human Metapneumovir PCR Not detected, Influenza A (H1) PCR Not detected, Influ A (H1N1/09) PCR Not detected, Influenza A (H3) PCR Not detected, Influenza Type A (PCR) Not detected, Influenza Type B (PCR) Not detected, M. pneumoniae (PCR) Not detected, Parainfluenza 1 (PCR) Not detected, Parainfluenza 2 (PCR) Not detected, Parainfluenza 3 (PCR) Not detected, Parainfluenza 4 (PCR) Not detected, RSV (PCR) Not detected, Entero/Rhino (PCR) Not detected 03/12/20 09:20: WBC 6.5, RBC 4.61, Hgb 11.8 L, Hct 39.5, MCV 85.7, MCH 25.6 L, MCHC 29.9 L, RDW 15.3, Plt Count 189, MPV 9.2, Neut % (Auto) 82.3 H, Lymph % (Auto) 9.1 L, [place] % (Auto) 7.9, Eos % (Auto) 0.2, Baso % (Auto) 0.5, Neut # (Auto) 5.4, Lymph # (Auto) 0.6 L, [place] # (Auto) 0.5, Eos # (Auto) 0.0, Baso # (Auto) 0.0 03/12/20 09:20: Sodium 139, Potassium 5.1, Chloride 98, Carbon Dioxide 37 H, Anion Gap 9.1, BUN 26 H, Creatinine 2.10 H, Estimated Creat Clear 16, Estimated GFR 22 L, Est GFR ( Amer) 27 L, Glucose 146 H, Calcium 8.7, Total Bilirubin 1.2, AST 2359 H*, ALT 1138 H*, Alkaline Phosphatase 150 H, Total Protein 7.0, Albumin 3.7, Globulin 3.3 H, Albumin/Globulin Ratio 1.1 03/12/20 09:20: Lactate 1.6 03/12/20 09:20: Procalcitonin 0.198 03/12/20 09:20: NT-Pro-B Natriuret Pep 9020 H 03/12/20 09:20: Lipase 31 03/12/20 09:20: PT 12.5 H, INR 1.14 H 03/12/20 09:23: Urine Color Yellow, Urine Appearance Clear, Urine pH 5.5, Ur Specific [place] 1.020, Urine Protein 1+, Urine Glucose (UA) Negative, Urine Ketones Neg
--- NOTE | 2020-03-12 09:13 | ECG_ITS ---
APPROVED REPORT Exam: Resting ECG HR:81 bpm ECG Measurements Heart Rate 81 AXES ND 128 P 41 QRSd 84 QRS -23 QT 376 T 11 QTc 436 Conclusion Normal sinus rhythm Normal ECG Electronically signed by : Per Hoyos, 03/13/2020 07:39:50
--- NOTE | 2020-03-12 09:22 | XR_ITS ---
PROCEDURE: XR CHEST PORTABLE CLINICAL HISTORY: SOB cough and congestion COMPARISON: CR CXR2V XR chest 2V from 08/04/2017 DX CXR2V XR chest 2V from 08/14/[address] chest wo/w con from 09/03/2017 CR XR CHEST 2V from 02/19/2019 FINDINGS: This is a somewhat poor inspiration. Scattered ill-defined opacities are seen in both lower lobes which were not seen on most recent chest film 02/19/2019. The right hilum is somewhat prominent and focal infiltrate in the perihilar and suprahilar region cannot be excluded. The right apex and most of the mid and upper left lung are clear. There monitor lines overlying the chest. IMPRESSION: Probable developing bilateral lower lobe pneumonia with possible right perihilar involvement as well versus adenopathy. Dictated by: Dr. Иван Steve MD 03/13/2020 07:31 Dr. Иван Steve MD in [facility] 03/13/2020 07:31
[2020-03-12 09:35] LABS: Adenovirus,PCR Not Detected (NotDetected); Bordetella Pertussis Not Detected (NotDetected); Chlamydophila Pneumoniae, PCR Not Detected (NotDetected); Coronavirus 229E Not Detected (NotDetected); Coronavirus NL63 Not Detected (NotDetected); Coronavirus OC43 Not Detected (NotDetected); Coronovirus HKU1,PCR Not Detected (NotDetected); Human Metapneumovirus Not Detected (NotDetected); Influenza A, PCR Not Detected (NotDetected); Influenza AH1, 2009 Not Detected (NotDetected); Influenza AH1, PCR Not Detected (NotDetected); Influenza AH3,PCR Not Detected (NotDetected); Influenza B, PCR Not Detected (NotDetected); Mycoplasma Pneumoniae, PCR Not Detected (NotDetected); Parainfluenza 1, PCR Not Detected (NotDetected); Parainfluenza 2, PCR Not Detected (NotDetected); Parainfluenza 3, PCR Not Detected (NotDetected); Parainfluenza 4, PCR Not Detected (NotDetected); Respiratory Syncytial Virus Not Detected (NotDetected); Rhinovirus/Enterovirus Not Detected (NotDetected)
[2020-03-12 09:35] LABS: Microscopic, Urine URINE MICROSCOPIC (MICROSCOPIC)
[2020-03-12 09:39] LABS: Basophils % 0.5 % (0.1-2.0); Eosinophils % 0.2 % (0.1-12.0); Hematocrit 39.5 % (37.0-47.0); Hemoglobin 11.8 g/dL (12.2-16.2); Lymphocytes # 0.6 K/mm3 (0.7-4.5); Lymphocytes % 9.1 % (10-50); Mean Corpuscular HGB Conc 29.9 g/dL (31.8-35.4); Mean Corpuscular Hemoglobin 25.6 pg (27.0-31.2); Mean Corpuscular Volume 85.7 fl (81-99); Mean Platelet Volume 9.2 fl (7.4-10.4); Monocytes # 0.5 K/mm3 (0.1-1.0); Monocytes % 7.9 % (1.7-9.3); Neutrophils # 5.4 K/mm3 (1.8-7.8); Neutrophils % 82.3 % (37.0-80.0); Platelet Count 189 K/mm3 (142-424); Red Blood Count 4.61 M/mm3 (4.20-5.40); Red Cell Distribution Width 15.3 % (11.5-17.5); White Blood Count 6.5 K/mm3 (4.8-10.8)
[2020-03-12 09:39] LABS: Appearance,Urine CLEAR (Clear); Bilirubin,Urine Negative (Negative); Blood, Urine 1+ (Negative); Color,Urine YELLOW (Yellow); Glucose,Urine (UA) Negative (Negative); Ketones,Urine Negative (Negative); Leukocyte Esterase,Urine Negative (Negative); Nitrate,Urine Negative (Negative); PH,Urine 5.5 (5.0-8.5); Protein,Urine 1+ (Negative); Urobilinogen,Urine 0.2 EU/dl (0.2)
[2020-03-12 09:40] LABS: Chloride 98 mmol/L (98-107); Sodium 139 mmol/L (136-145)
[2020-03-12 09:41] LABS: Potassium 5.1 mmoL/L (3.5-5.1)
[2020-03-12 09:43] LABS: Alkaline Phosphatase 150 U/L (38-126); Bilirubin,Total 1.2 mg/dl (0.2-1.3); Blood Urea Nitrogen 26 mg/dl (7-17); Creatinine Clearance Estimated 16 mL/min (50-200); Estimated Glomerular Filt Rate 22 ml/min (>60); GFR (African American) 27 ML/MIN (>60)
[2020-03-12 09:44] LABS: Albumin Level 3.7 g/dl (3.5-5.0); Albumin/Globulin Ratio 1.1 (1.1-1.8); Anion Gap 9.1 mEq/L (5-15); Calcium 8.7 mg/dl (8.4-10.2); Carbon Dioxide 37 mmol/L (22.0-30.0); Globulin 3.3 g/dL (1.3-3.2); Glucose 146 mg/dl (74-100); Lactic Acid 1.6 mmol/L (0.7-2.1)
[2020-03-12 09:44] LABS: Squamous Epithelial Cell,Urine Occasional #/hpf (0-5)
[2020-03-12 09:50] LABS: Alanine Aminotransferase 1138 U/L (12-78)
--- NOTE | 2020-03-12 09:51 | CT_ITS ---
PROCEDURE: CT HEAD/BRAIN WO CON CLINICAL INDICATION: encephalopathy Altered mental status, altered level of consciousness, confusion, disorientation COMPARISON: No exams were available for comparison TECHNIQUE: Axial images obtained. All CT scans at the facility use one or more dose reduction, viz: automated exposure control, ma/kV adjustment per patient size (including targeted exams where dose is matched to indication, i.e. head), or iterative reconstruction technique. FINDINGS: No midline shift, mass effect, intracranial hemorrhage, hydrocephalus, or extra-axial fluid collection is evident. There is generalized atrophy with hypoattenuation of the periventricular white matter consistent with microangiopathic changes.. There are some mild encephalomalacia changes in the right occipital lobe medially. The calvarium has an unremarkable appearance. No mastoid effusion. No sinus air-fluid level. IMPRESSION: No acute intracranial finding Dictated by: Uriel Posada MD 03/12/2020 10:48 Uriel Posada MD in [facility] 03/12/2020 10:48
[2020-03-12 10:07] LABS: Procalcitonin 0.198 ng/mL (0.0-2.0)
[2020-03-12 10:11] LABS: Aspartate Amino Transferase 2359 U/L (14-36)
[2020-03-12 10:19] LABS: NT Pro Brain Natriuretic Pep. 9020 pg/mL (0-450)
[2020-03-12 10:27] LABS: INR 1.14 (0.9-1.1); Prothrombin Time 12.5 seconds (9.4-11.8)
[2020-03-12 10:34] LABS: Ammonia < 9 umol/L (9-30)
[2020-03-12 10:35] LABS: Lipase 31 U/L (23-300)
--- NOTE | 2020-03-12 11:00 | PC.NURSE ---
PT'S SON UPDATED ON PLAN OF CARE
--- NOTE | 2020-03-12 11:34 | CT_ITS ---
PROCEDURE: CT CHEST WO CON CLINICAL INDICATION: hypoxia, multiorgan failure COMPARISON: CT CHESTWW CT chest wo/w con from 09/03/2017 TECHNIQUE: Axial images obtained with sagittal and coronal reformats. All CT scans at the facility use one or more dose reduction, viz: automated exposure control, ma/kV adjustment per patient size (including targeted exams where dose is matched to indication, i.e. head), or iterative reconstruction technique. FINDINGS: HEART AND MEDIASTINAL STRUCTURES: There is prominent generalized cardiomegaly with biventricular enlargement. There is mild aortic tortuosity with prominent calcification of the aortic arch. There is borderline aneurysmal dilatation of the ascending aorta measuring up to 3.8 cm in diameter. There is no significant pulmonary congestion. LUNGS AND PLEURAL SPACES: There is mild diffuse interstitial prominence in both lung parham. There is minimal postinflammatory scarring right posterior gutter. There is no definite new acute pneumonic infiltrate in either lower lobe, the suspected possible infiltrate seen on the chest film or likely due to crowding of vascular markings due to the poor inspiration and the patient's body habitus. BONY STRUCTURES: There is mild diffuse kyphotic curvature of the thoracic spine with mild degenerate changes lower thoracic spine. UPPER ABDOMEN: Unremarkable. ADDITIONAL FINDINGS: There are scattered small lymph nodes in the superior mediastinum and bilateral hilar regions.. IMPRESSION: Generalized cardiomegaly with interval increase in overall cardiac size when compared to the previous study along with aortic tortuosity and borderline prominent ascending aorta. No definite acute pneumonic infiltrate is seen however Dictated by: Dr. Иван Steve MD 03/13/2020 07:41 Dr. Иван Steve MD in [facility] 03/13/2020 07:41
--- NOTE | 2020-03-12 11:35 | CT_ITS ---
PROCEDURE: CT ABDOMEN PELVIS WO CON CLINICAL INDICATION: multiorgan failure COMPARISON: No exams were available for comparison TECHNIQUE: Axial images obtained with sagittal and coronal reformats. All CT scans at the facility use one or more dose reduction, viz: automated exposure control, ma/kV adjustment per patient size (including targeted exams where dose is matched to indication, i.e. head), or iterative reconstruction technique. FINDINGS: Lower thorax: There is minimal postinflammatory scarring and or atelectasis right posterior gutter. There may be a tiny amount of pleural fluid in both posterior gutters. ABDOMEN: Liver: No masses or biliary dilatation. Gallbladder: Post cholecystectomy Pancreas: No masses or peripancreatic fluid collections. Spleen: Normal in size, couple of calcified granulomata are noted. Adrenals: unremarkable Kidneys/ureters: The kidneys are normal in size, there is a benign-appearing cortical cyst lower pole right kidney measuring approximately 1.5 cm in diameter. There are no calculi and no obstructive uropathy. ABDOMEN & PELVIS: Stomach bowel: There is a small hiatal hernia. The stomach and duodenal sweep appear normal. The small bowel is unremarkable. The appendix is not definitely visualized but there are no pericecal inflammatory changes. There is moderate scattered stool and gas seen throughout the colon, with a more large amount seen in the lower descending and sigmoid colon. There are few scattered diverticuli of the sigmoid colon without evidence of diverticulitis. Peritoneum: No abnormal fluid collections. No obvious inflammatory changes. No free air. Lymph nodes: No enlarged lymph nodes apparent. Vasculature: There is diffuse arthrosclerotic calcification of the abdominal aorta and proximal common iliac arteries but there is no aneurysm. There is moderate calcification of the splenic artery. Bones: There are metallic brackets and pedicle screws fusing L3 and L4 there is apparent autofusion of the anterior aspects of T11 and T12. PELVIS: Reproductive: Post hysterectomy Bladder: The urinary bladder is decompressed, Hanna catheter seen at the base of urinary bladder. There is a small amount of free fluid in the cul-de-sac. Appendix: Not definitely visualized IMPRESSION: Mild diverticulosis sigmoid colon without diverticulitis, mild free fluid in the cul-de-sac slightly more than expected for physiologic causes, status post hysterectomy Dictated by: Dr. Иван Steve MD 03/13/2020 07:57 Dr. Иван Steve MD in [place] 03/13/2020 07:57
--- NOTE | 2020-03-12 12:03 | PC.NURSE ---
TO CT PER STRETCHER
[2020-03-12 12:12] LABS: Coronavirus 19, PCR Detected (NotDetected)
--- NOTE | 2020-03-12 12:21 | PC.NURSE ---
DR SHABANA MATA
--- NOTE | 2020-03-12 12:38 | PC.NURSE ---
DR DONALD REPAGED
--- NOTE | 2020-03-12 12:39 | PC.NURSE ---
PT'S SON UPDATED ON PLAN OF CARE
--- NOTE | 2020-03-12 13:10 | PC.NURSE ---
CALLED REPORT TO FLOOR
--- NOTE | 2020-03-12 14:05 | PC.NURSE ---
Addendum entered by Cait Espinal RN 03/12/20 14:59: lavern [email or web address], stated dosing will be done tomorrow. Original Note: pharmacy paged for remdesivir dosing.
--- NOTE | 2020-03-12 15:21 | PC.NURSE ---
Patient admitted from the ER with covid. Phonelines are down. Have attempted to page a few times but have yet to get a call from him, likely from phone outage. Patient remains stable, two separate orders for IV fluids entered upon admitting patient from er. Will give the lowest amount with is ns @ 50 cc, as patients bnp is elevated. Blood pressure is currently 117/72. Will continue attempting to reach Ryan for clarification. Also attempted to contact patients son who is her poa. Have left two messages on sons phone, also attempted to call patients daughter. Unable to reach either, left voicemails. Patient requested to have son answer her admission questions on her behalf. Patient is slightly confused to date and time as well as hesitant on where she is right now. Will continue to wait for son to call to review patients admission information. Admission assessment is however completed.
--- NOTE | 2020-03-12 18:34 | PC.NURSE ---
Patient brought in today from ER for covid. Patients son states that she she lives next door to him. When he went to visit her today she was confused. States that she began feeling weak a few days ago. Patients son called paramedics. Son provided admission information per patients request. Neurologically patient is pleasant, alert to name, , location, unsure of date. Very tired. Patients son states his mother struggles with insomnia and will only sleep for 3 hours a night but will nap during the day. Cardiac: Patient has been normo-tensive, normal sinus. Pulmonary: Patient is on 3l of oxygen. Provided an incentive spirometer, educated on use. Currently satting 95%. Son reports no history of smoking. Does not wear home oxygen or a bipap. GI: not a diabetic per son. Refused dinner. Son states his mothers appetite has been diminshed for prior 3 days. : brenner in place. Urine output was 300 since being admitted. Skin: Rash on stomach and groin. Nystatin order by er physician. Not available in unit. New iv placed after one from er was dislodged. Son asked to set up password [employer] . Due to phone lines being down asked to call neighbor at [phone] for emergencies, who will contact him if needed. NS @ 50 running.
[2020-03-13] VITALS (7 sets, daily range): BP systolic 134–157; BP diastolic 66–83; PULSE 70–106; RESP 18–24; TEMP 36.6–37.4; O2SAT 91–95; BMI 42.5
--- NOTE | 2020-03-13 06:20 | PC.NURSE ---
No acute changes overnight. Pt is A&O to person, birthday and place. Pt has not slept hardly at all this shift. She stated she needs benedryl to sleep at night. Pt sats have been low 90s on 3 L NC, lung sounds are diminished throughout with fine crackles in bases. Pt has been confused to her situation and why she is in the hospital and has been repeatedly reoriented. Bowel sounds positive x4, abd soft and non tender. UOP has been adequate via brenner cath. VSS, call light in reach, no concerns at this time.
--- NOTE | 2020-03-13 06:41 | PC.NURSE ---
Pt care has been supervised by Primary RN, Katie Mao.
[2020-03-13 07:22] LABS: Basophils % 0.7 % (0.1-2.0); Eosinophils % 0.2 % (0.1-12.0); Hematocrit 37.6 % (37.0-47.0); Hemoglobin 11.7 g/dL (12.2-16.2); Lymphocytes # 0.8 K/mm3 (0.7-4.5); Lymphocytes % 13.7 % (10-50); Mean Corpuscular Hemoglobin 26.1 pg (27.0-31.2); Mean Corpuscular Volume 84.1 fl (81-99); Mean Platelet Volume 10.6 fl (7.4-10.4); Monocytes # 0.5 K/mm3 (0.1-1.0); Monocytes % 7.8 % (1.7-9.3); Neutrophils # 4.6 K/mm3 (1.8-7.8); Neutrophils % 77.5 % (37.0-80.0); Platelet Count 174 K/mm3 (142-424); Red Blood Count 4.47 M/mm3 (4.20-5.40); Red Cell Distribution Width 15.2 % (11.5-17.5); White Blood Count 5.9 K/mm3 (4.8-10.8)
[2020-03-13 08:02] LABS: Chloride 101 mmol/L (98-107); Potassium 3.7 mmoL/L (3.5-5.1); Sodium 141 mmol/L (136-145)
[2020-03-13 08:05] LABS: Albumin Level 3.6 g/dl (3.5-5.0); Albumin/Globulin Ratio 1.2 (1.1-1.8); Alkaline Phosphatase 145 U/L (38-126); Anion Gap 8.7 mEq/L (5-15); Bilirubin,Total 0.4 mg/dl (0.2-1.3); Blood Urea Nitrogen 31 mg/dl (7-17); Carbon Dioxide 35 mmol/L (22.0-30.0); Creatinine Clearance Estimated 19 mL/min (50-200); Estimated Glomerular Filt Rate 33 ml/min (>60); GFR (African American) 40 ML/MIN (>60); Total Protein,Serum 6.6 g/dl (6.3-8.2)
[2020-03-13 08:06] LABS: Calcium 8.4 mg/dl (8.4-10.2); Glucose 92 mg/dl (74-100)
[2020-03-13 08:12] LABS: Alanine Aminotransferase 1041 U/L (12-78)
[2020-03-13 08:26] LABS: Aspartate Amino Transferase 1974 U/L (14-36)
--- NOTE | 2020-03-13 08:32 | HMH.PHAVTE ---
[facility] Pharmacy VTE Monitoring - Patient Demographics Admission date: 03/12/20 Report Date: 03/13/20 Time: 08:32 Allergies/Adverse Reactions: Patient Allergies No Known Allergies Allergy (Verified 01/21/20 13:02) Height: 1.5 m Weight: 95.821 kg Patient Problems: Current Active Problems Obesity (BMI 30-39.9) (Chronic) COVID-19 (Acute) Acute respiratory failure with hypoxia (Acute) ARPIT (acute kidney injury) (Acute) Transaminitis (Acute) Elevated brain natriuretic peptide (BNP) level (Acute) - VTE Risk Labs: VTE Related Lab Results Hgb 11.7 g/dL (12.2-16.2) L 03/13/20 06:00 Hct 37.6 % (37.0-47.0) 03/13/20 06:00 Plt Count 174 K/mm3 (142-424) 03/13/20 06:00 PT 12.5 seconds (9.4-11.8) H 03/12/20 09:20 INR 1.14 (0.9-1.1) H 03/12/20 09:20 BUN 31 mg/dl (7-17) H 03/13/20 06:00 Creatinine 1.50 mg/dl (0.52-1.04) H D 03/13/20 06:00 Estimated Creat Clear 19 mL/min (50-200) 03/13/20 06:00 VTE Score: 3 VTE Risk Level: Low Risk - Prophylaxis VTE Prophylaxis Ordered?: Yes Types of VTE Prophylaxis: Pharmacological Pharmacologic Type: Enoxaparin
--- NOTE | 2020-03-13 09:57 | HMH.HP ---
*Admission Date: 03/12/20 *Chief complaint: Lethargy/mental status changes *History of present illness: 84-year-old white female with multiple medical problems who was in her normal state of health at her home when her son found her yesterday confused, disoriented and unable to care for herself. Brought to the emergency department where she gave a history of low-grade fevers and a cough. Work-up revealed significant dehydration, acute kidney injury, transaminitis elevation and evidence of fluid overload with BNP elevation and patchy alveolar infiltrates on chest x-ray. She was also noted to have COVID-19 positive serology on PCR testing and was admitted to our [facility] intensive care unit for oxygenation, further diagnostic testing and antibiotics. She this morning states that she feels pretty good and does not think she was sick. Wonders why she has to stay in the hospital. [facility] History I have reviewed the patient's past medical history: Yes Medical History: Reports:: Hyperlipidemia, Hypertension Denies:: Cancer, Diabetes Mellitus Type 1, Diabetes Mellitus Type 2, Internal Pacemaker, MRSA *Have you ever received a pneumonia vaccine?: Yes *Have you received a flu vaccine this season?: Yes Other Medical History: Reports: Arthritis Laterality Cases: Right: Arthroscopy Knee, Bilateral: Tonsillectomy Other Surgeries: Yes: Appendectomy, Cholecystectomy, Colonoscopy, Hysterectomy-Total. No: Pacemaker Amputation: No Fractures: No - *Social History Last grade of school completed: 11th or 12th Smoking Status: Never smoker Alcohol Intake: never Alcohol Intake Frequency:: other *Occupational Status:: retired Housing: house Household Members: none *Travel in the last 8 weeks: None Family Hx:: Unable to obtain Review of Systems - Review of Systems Review of systems:: pertinent systems reviewed and negative unless documented below Meds Home Medications Medication Instructions Recorded Confirmed Type aspirin 81 mg tablet,delayed 81 mg PO DAILY 05/21/17 03/12/20 History release atenolol 50 mg tablet 50 mg PO HS 05/21/17 03/12/20 History cyanocobalamin (vitamin B-12) 2,500 mcg PO DAILY tab 05/21/17 03/12/20 History 1,000 mcg tablet furosemide 20 mg tablet 20 mg PO BID tab 05/21/17 03/12/20 History gabapentin 300 mg capsule 600 mg PO Q6H cap 05/21/17 03/12/20 History hydrocodone 10 mg-acetaminophen 1 tab PO Q6HP PRN 05/21/17 03/12/20 History 325 mg tablet lisinopril 20 mg tablet 20 mg PO DAILY 05/21/17 03/12/20 History potassium chloride 10 mEq 10 meq PO DAILY 90 Days #90 11/12/17 03/12/20 History tablet,extended release(part/cryst) Allergies Allergy/AdvReac Type Severity Reaction Status Date / Time No Known Allergies Allergy Verified 01/21/20 13:02 Exam Vital signs and Labs for Last 24 Hours: Temp Pulse Resp BP Pulse Ox 98.1 F 106 H 20 134/66 94 L 03/13/20 04:00 03/13/20 04:00 03/13/20 04:00 03/13/20 04:00 03/13/20 04:00 Laboratory Results - last 24 hr 03/12/20 09:20: Chlamy pneumoniae PCR Not detected, Adenovirus (PCR) Not detected, B. pertussis DNA (PCR) Not detected, Coronavirus OC43 (PCR) Not detected, Coronavirus HKU1 (PCR) Not detected, Coronavirus 229E (PCR) Not detected, SARS-CoV-2 (PCR) Detected A, Coronavirus NL63 (PCR) Not detected, Human Metapneumovir PCR Not detected, Influenza A (H1) PCR Not detected, Influ A (H1N1/09) PCR Not detected, Influenza A (H3) PCR Not detected, Influenza Type A (PCR) Not detected, Influenza Type B (PCR) Not detected, M. pneumoniae (PCR) Not detected, Parainfluenza 1 (PCR) Not detected, Parainfluenza 2 (PCR) Not detected, Parainfluenza 3 (PCR) Not detected, Parainfluenza 4 (PCR) Not detected, RSV (PCR) Not detected, Entero/Rhino (PCR) Not detected 03/12/20 09:20: AST 2359 H* 03/12/20 09:20: Procalcitonin 0.198 03/12/20 09:20: NT-Pro-B Natriuret Pep 9020 H 03/12/20 09:20: Lipase 31 03/12/20 09:20: PT 12.5 H, INR 1.14 H 03/12/20 10:18: Ammonia < 9 L 03/13
--- NOTE | 2020-03-13 10:34 | HMH.PHAINT ---
HOME MEDICATIONS RECONCILED FROM RX FILL HISTORY.
--- NOTE | 2020-03-13 15:49 | PC.NURSE ---
A&OX4. PT HAS TOLERATED 3L NC WELL THROUGHOUT SHIFT. RESPIRATIONS REGULAR AND UNLABORED. LUNG SOUNDS DIMINISHED THROUGHOUT. OCCASIONAL NONPRODUCTIVE COUGH NOTED. HAND TRUCK JUMPER EQUAL. +2 PULSES NOTED THROUGHOUT. ACTIVE BOWEL SOUNDS HEARD IN ALL QUADRANTS. SOFT AND NONTENDER ABDOMEN. PT HAS HAD 2 LOOSE BMS THIS SHIFT. BROWNISH YELLOW IN COLOR. NO ODOR NOTED. PT REPORTED PAIN ONCE IN HER BACK AND RECEIVED PAIN MEDS PER MAY. ON REASSESSMENT, SHE STATED PAIN WAS TOLERABLE. MOSCOSO CATHETER IN PLACE W BRIGHT YELLOW CLEAR URINE NOTED. NO KINKS NOTED. PT RECEIVED LASIX AT BEGINNING OF SHIFT AND HAD GREAT OUTPUT. PT ALSO RECEIVED AZITHROMYCIN, CEFTRIAXONE, AND REMDESIVIR THIS SHIFT AND TOLERATED WELL. NS INFUSING AT 50ML/HR. NO REPORTS OF SOB. PT HAS BEEN AWAKE MOST OF SHIFT BUT TOOK A FEW SHORT NAPS. SHE HAS SPOKE WITH SEVERAL FAMILY MEMBERS TODAY. PT RECEIVED BATH AND LINEN CHANGE THIS SHIFT. PT HAS REMAINED AFEBRILE AND NO NAUSEA HAS BEEN REPORTED. PT HAS REMAINED IN CONTACT AND [employer]CAUT[employer]. PT IS CURRENTLY LYING IN BED WATCHING TV. BED IN LOWEST POSITION. VSS. WILL CONTINUE TO MONITOR.
--- NOTE | 2020-03-13 18:34 | PC.NURSE ---
Pt noted at 75% on RA.
[2020-03-14] VITALS (8 sets, daily range): BP systolic 133–180; BP diastolic 65–89; PULSE 61–94; RESP 16–20; TEMP 36.6–37.1; O2SAT 90–97; BMI 39.6
--- NOTE | 2020-03-14 03:54 | PC.NURSE ---
Pt is A&O to place and self-but not situation or time. Pt has had many episodes of agitation and confusion this shift. Pt has yelled out help me multiple times and when staff would enter her room, she would need help changing the channel or adjusting the volume on her tv. At one point, pt got so agitated she through her tv remote at the window in her room. WHen staff entered the room asking if he what was wrong pt stated, you all treat me horrible, you won't find my tv show for me After calmly speaking to pt, and helping her find a movie to watch, pt became pleasant and did not call out quite as often. Pt continues to tolerate 3 L NC w/ o2 sats between 90-93%. Hanna catheter remains in place and is draining clear, light yellow urine. No other complaints or acute changes at this time. Will continue to monitor.
[2020-03-14 06:03] LABS: Basophils % 0.6 % (0.1-2.0); Eosinophils % 0.1 % (0.1-12.0); Hematocrit 42.7 % (37.0-47.0); Hemoglobin 12.4 g/dL (12.2-16.2); Lymphocytes # 0.5 K/mm3 (0.7-4.5); Lymphocytes % 15.5 % (10-50); Mean Corpuscular Hemoglobin 25.2 pg (27.0-31.2); Mean Corpuscular Volume 86.8 fl (81-99); Monocytes # 0.4 K/mm3 (0.1-1.0); Monocytes % 11.3 % (1.7-9.3); Neutrophils # 2.5 K/mm3 (1.8-7.8); Neutrophils % 72.5 % (37.0-80.0); Platelet Count 163 K/mm3 (142-424); Red Blood Count 4.92 M/mm3 (4.20-5.40); White Blood Count 3.5 K/mm3 (4.8-10.8)
[2020-03-14 06:05] LABS: Chloride 102 mmol/L (98-107); Potassium 3.7 mmoL/L (3.5-5.1); Sodium 142 mmol/L (136-145)
[2020-03-14 06:07] LABS: Blood Urea Nitrogen 28 mg/dl (7-17); Creatinine Clearance Estimated 53 mL/min (50-200); Estimated Glomerular Filt Rate 47 ml/min (>60); GFR (African American) 57 ML/MIN (>60)
[2020-03-14 06:08] LABS: Albumin Level 3.9 g/dl (3.5-5.0); Albumin/Globulin Ratio 1.1 (1.1-1.8); Alkaline Phosphatase 153 U/L (38-126); Bilirubin,Total 0.4 mg/dl (0.2-1.3); Calcium 8.9 mg/dl (8.4-10.2); Carbon Dioxide 34 mmol/L (22.0-30.0); Globulin 3.4 g/dL (1.3-3.2); Total Protein,Serum 7.3 g/dl (6.3-8.2)
[2020-03-14 06:19] LABS: Anion Gap 9.7 mEq/L (5-15); Aspartate Amino Transferase 1222 U/L (14-36)
[2020-03-14 06:20] LABS: Alanine Aminotransferase 951 U/L (12-78); Glucose 121 mg/dl (74-100)
--- NOTE | 2020-03-14 08:54 | HMH.ACPN2 ---
Internal Medicine - PN: Subj *Date: 03/14/20 *Time: 08:54 Interval history: Patient had some confusion through the night but this is cleared. She is up sitting on the bedside commode this morning is oriented x2, a little fuzzy about the date but knows that Johny has just happened. Exam Vital signs and Labs for Last 24 Hours: Temp Pulse Resp BP Pulse Ox 98.7 F 61 20 142/68 H 95 03/14/20 08:00 03/14/20 08:00 03/14/20 08:00 03/14/20 08:00 03/14/20 08:00 Laboratory Results - last 24 hr 03/14/20 05:30: WBC 3.5 L D, RBC 4.92, Hgb 12.4, Hct 42.7, MCV 86.8, MCH 25.2 L, MCHC 29.0 L, RDW 15.0, Plt Count 163, MPV 9.0, Neut % (Auto) 72.5, Lymph % (Auto) 15.5, [place] % (Auto) 11.3 H, Eos % (Auto) 0.1, Baso % (Auto) 0.6, Neut # (Auto) 2.5, Lymph # (Auto) 0.5 L, [place] # (Auto) 0.4, Eos # (Auto) 0.0, Baso # (Auto) 0.0 03/14/20 05:30: Sodium 142, Potassium 3.7, Chloride 102, Carbon Dioxide 34 H, Anion Gap 9.7, BUN 28 H, Creatinine 1.10 H D, Estimated Creat Clear 53, Estimated GFR 47 L, Est GFR ( Amer) 57 L D, Glucose 121 H D, Calcium 8.9, Total Bilirubin 0.4, AST 1222 H* D, ALT 951 H*, Alkaline Phosphatase 153 H, Total Protein 7.3, Albumin 3.9, Globulin 3.4 H, Albumin/Globulin Ratio 1.1 I & O for Last 24 hours: Intake & Output 03/11/20 03/12/20 03/13/20 03/14/20 11:59 11:59 11:59 11:59 Intake Total 1241 / 1241 1318 / 1318 Output Total 775 / 775 2575 / 2575 Balance 466 / 466 -1257 / -1257 Weight 250 lb 211 lb 4 oz 197 lb 1 oz Narrative: Are, oriented. ENT exam clear. Heart rate regular. Vital signs look great on liters nasal cannula. Lungs have good air movement, minimal rhonchi in both bases. No edema or clubbing. No skin rash. Abdomen is soft. She has had frequent stools but these are improving. Assessment and Plan (1) ARPIT (acute kidney injury) Status: Acute Category: Medical Code(s): N17.9 - Acute kidney failure, unspecified (2) Acute respiratory failure with hypoxia Status: Acute Category: Medical Code(s): J96.01 - Acute respiratory failure with hypoxia (3) COVID-19 Status: Acute Category: Medical Code(s): U07.1 - COVID-19 (4) Elevated brain natriuretic peptide (BNP) level Status: Acute Category: Medical Code(s): R79.89 - Other specified abnormal findings of blood chemistry (5) Transaminitis Status: Acute Category: Medical Code(s): R74.01 - Elevation of levels of liver transaminase levels (6) Obesity (BMI 30-39.9) Status: Chronic Category: Medical Code(s): E66.9 - Obesity, unspecified (7) CAP (community acquired pneumonia) Status: Acute Category: Medical Code(s): J18.9 - Pneumonia, unspecified organism - Assessment and plan all Dx Assessment and Plan for all problems:: Patient is improving, acute kidney injury has essentially resolved. Responded well to Lasix yesterday with good urine output. Weight loss noted. Echocardiogram tomorrow to assess cardiac function. Transaminitis also improving-questionable effect from CHF/congestive liver versus viral elevation from COVID-19. PT/OT evaluation tomorrow. Continue oxygen therapy. 1 Hour critical care time
--- NOTE | 2020-03-14 09:56 | XR_ITS ---
PROCEDURE: XR CHEST PORTABLE CLINICAL HISTORY: f/u icu exam COMPARISON: DX CXR2V XR chest 2V from 08/14/2017 CR XR CHEST 2V from 02/19/[address] CHEST WO CON from 03/12/2020 CR XR CHEST PORTABLE from 03/12/2020 FINDINGS: This is a slightly better inspiration and the most recent chest film. There has been partial interval clearing of the bilateral basilar pneumonic infiltrates with more improvement at the right base than left. The possible infiltrate in the right suprahilar region also shows interval improvement. The left upper lung field remains clear. IMPRESSION: Slight overall improvement in the bilateral pneumonic infiltrates compared with the most recent study. Dictated by: Dr. Иван Steve MD 03/14/2020 07:56 Dr. Иван Steve MD in [facility] 03/14/2020 07:56
--- NOTE | 2020-03-14 16:28 | PC.NURSE ---
PT IS RESTING IN BED. O2 SATURATION HAS MAINTAINED 91-96% ON 3 L NC. PT HAD SOME CONFUSION LAST NIGHT BUT HAS BEEN ALERT AND ORIENTED T/O THIS SHIFT. PT HAS BEEN ABLE TO TOLERATE TALKING ON THE PHONE WITH FAMILY. PT HAD 1 LOOSE BOWEL MOVEMENT EARLY THIS MORNING. PT STILL HAS A POOR APPETITE BUT IS DRINKING FAIR. REDNESS NOTED TO THE RT BREAST/ABDOMINAL FOLD (NYSTATIN CREAM APPLIED THIS AM) LUNG SOUNDS HAVE SCATTERED RHONCHI. ABDOMEN SOFT/ NON TENDER WITH ACTIVE BOWEL SOUNDS. WILL CONTINUE TO MONITOR.
[2020-03-15 03:49] VITALS: BP 167/62; PULSE 65; RESP 20; TEMP 37.2; O2SAT 92
[2020-03-15 04:51] VITALS: BMI 39.6
--- NOTE | 2020-03-15 06:16 | PC.NURSE ---
Pt has been confused most of this shift. Pt has had episodes where she was not oriented to place and would eventually reorient after several minutes of assuring pt she was safe and at [facility] getting treatment for COVID 19. During these confused episodes, pt would get out of bed and attempt to leave room. Bed alarm on for safety. Pt has been seen multiple times this shift pulling on brenner catheter. Brenner remains patent and in place, but during rounds this AM-small blood clots were noted in urine. Lung sounds remain diminished t/o. Pt has had x2 small, brown, liquid stools this shift. Active bowel sounds in all 4 quads. No cough noted this shift. No other acute changes or concerns at this time. Will continue to monitor.
[2020-03-15 07:04] LABS: Basophils % 0.4 % (0.1-2.0); Eosinophils % 0.1 % (0.1-12.0); Hematocrit 38.6 % (37.0-47.0); Hemoglobin 11.4 g/dL (12.2-16.2); Lymphocytes # 0.6 K/mm3 (0.7-4.5); Lymphocytes % 16.3 % (10-50); Mean Corpuscular HGB Conc 29.6 g/dL (31.8-35.4); Mean Corpuscular Hemoglobin 25.6 pg (27.0-31.2); Mean Corpuscular Volume 86.8 fl (81-99); Mean Platelet Volume 9.1 fl (7.4-10.4); Monocytes # 0.5 K/mm3 (0.1-1.0); Monocytes % 13.8 % (1.7-9.3); Neutrophils # 2.6 K/mm3 (1.8-7.8); Neutrophils % 69.5 % (37.0-80.0); Platelet Count 167 K/mm3 (142-424); Red Blood Count 4.45 M/mm3 (4.20-5.40); White Blood Count 3.7 K/mm3 (4.8-10.8)
[2020-03-15 07:12] LABS: Chloride 103 mmol/L (98-107); Potassium 3.5 mmoL/L (3.5-5.1); Sodium 143 mmol/L (136-145)
[2020-03-15 07:14] LABS: Blood Urea Nitrogen 25 mg/dl (7-17); Creatinine Clearance Estimated 58 mL/min (50-200); Estimated Glomerular Filt Rate 60 ml/min (>60); GFR (African American) 72 ML/MIN (>60)
[2020-03-15 07:15] LABS: Alanine Aminotransferase 701 U/L (12-78); Albumin Level 3.2 g/dl (3.5-5.0); Albumin/Globulin Ratio 1.1 (1.1-1.8); Alkaline Phosphatase 131 U/L (38-126); Anion Gap 6.5 mEq/L (5-15); Aspartate Amino Transferase 608 U/L (14-36); Bilirubin,Total 0.3 mg/dl (0.2-1.3); Calcium 8.8 mg/dl (8.4-10.2); Carbon Dioxide 37 mmol/L (22.0-30.0); Glucose 106 mg/dl (74-100); Total Protein,Serum 6.2 g/dl (6.3-8.2)
[2020-03-15 08:00] VITALS: BP 161/81; PULSE 60; RESP 20; TEMP 36.5; O2SAT 97
--- NOTE | 2020-03-15 08:41 | CA_ITS ---
APPROVED REPORT EXAM: Comprehensive 2D, Doppler, and color-flow Echocardiogram Director Ehs: Danae Aguilera CRT Ht: 4 ft 11 in Wt: 197lbs BSA: 1.83 BP: 142/68 mmHg Indications: + Covid 19, Congestive Heart Failure, Hypertension/HDD, DNR, SOB 2D Dimensions LVOT 1.99 cm (M/F) 1.5-2.5 M-Mode Dimensions RVDd 3.53 cm (0.9-2.6) LA Diam 3.83 cm (1.9-4.0) LVDd 4.33 cm (3.5-5.7) Ao Diam 3.90 cm (2.0-3.7) LVDs 3.23 cm (3.5-5.7) IVSd 1.40 cm (0.6-1.1) PWd 1.15 cm (0.6-1.1) EF (Teich) 50.40% FS 25.40% EDV (Teich) 84.40 mL ESV (Teich) 41.90 mL LV Diastology E Decel Time 150.00 (160-240 msec) E/A Ratio 0.92 Aortic Valve AO Peak GR. 8.30 mmHg Mitral Valve MV E Max Jarocho. 97.00 (40-130 cm/s) MV A Velocity 106.00 (40-130 cm/s) E/A Ratio 0.92 MV Decel. Time 150.00 (160-240 ms) MV PHT 44.00 ms Pulmonary Valve PV Peak Velocity 88.00 (50-150 cm/s) Tricuspid Valve TR P. Velocity 370.00 cm/s RAP Estimate 10.00 mmHg RVSP 64.60 mmHg Left Ventricle Left atrium is mildly enlarged, left ventricle is normal size, mild concentric left ventricular hypertrophy, visually estimated ejection fraction 50% with no obvious regional wall motion abnormality, diastolic parameters are inconclusive. Right Ventricle Right atrium and right ventricle are mildly enlarged with normal contractility. Aortic Valve Aortic valve is minimally thickened and fibrosed, there is no aortic stenosis or aortic insufficiency. Mitral Valve Mitral valve leaflets are minimally thickened, there is mild mitral regurgitation. Tricuspid Valve Tricuspid valve grossly normal, there is mild tricuspid regurgitation, calculated right ventricular systolic pressure 64 mmHg. Pulmonic Valve Pulmonic valve is poorly visualized. Great Vessels Aortic root is normal size. Pericardium No significant pericardial effusion noted. Conclusion 1. Technically difficult study because of the patient factors and poor acoustic windows 2. Mild biatrial enlargement, normal left ventricular size, mild concentric left ventricular hypertrophy, visually estimated ejection fraction 50% with no regional wall motion abnormality. Diastolic parameters are inconclusive. 3. Mildly enlarged right ventricle with normal contractility. 4. Mild mitral and tricuspid regurgitation, calculated right ventricular systolic pressure 64 mmHg. 5. No significant pericardial effusion noted. Electronically signed by : Jp Hartman, 03/15/2020 18:36:43
--- NOTE | 2020-03-15 08:54 | HMH.ACPN2 ---
Internal Medicine - PN: Subj *Date: 03/15/20 *Time: 08:54 Interval history: Overnight patient has done well, minimal confusion through the night but this has cleared this morning. She is doing well, tolerating nasal cannula oxygen well with normal vital signs. Eating breakfast well, wishes to go home today. Exam Vital signs and Labs for Last 24 Hours: Temp Pulse Resp BP Pulse Ox 97.7 F 60 20 161/81 H 97 03/15/20 08:00 03/15/20 08:00 03/15/20 08:00 03/15/20 08:00 03/15/20 08:00 Laboratory Results - last 24 hr 03/15/20 06:00: WBC 3.7 L, RBC 4.45, Hgb 11.4 L, Hct 38.6, MCV 86.8, MCH 25.6 L, MCHC 29.6 L, RDW 15.0, Plt Count 167, MPV 9.1, Neut % (Auto) 69.5, Lymph % (Auto) 16.3, [place] % (Auto) 13.8 H, Eos % (Auto) 0.1, Baso % (Auto) 0.4, Neut # (Auto) 2.6, Lymph # (Auto) 0.6 L, [place] # (Auto) 0.5, Eos # (Auto) 0.0, Baso # (Auto) 0.0 03/15/20 06:00: Sodium 143, Potassium 3.5, Chloride 103, Carbon Dioxide 37 H, Anion Gap 6.5, BUN 25 H, Creatinine 0.90, Estimated Creat Clear 58, Estimated GFR 60, Est GFR ( Amer) 72 D, Glucose 106 H, Calcium 8.8, Total Bilirubin 0.3, AST 608 H* D, ALT 701 H*, Alkaline Phosphatase 131 H, Total Protein 6.2 L, Albumin 3.2 L D, Globulin 3.0, Albumin/Globulin Ratio 1.1 I & O for Last 24 hours: Intake & Output 03/12/20 03/13/20 03/14/20 03/15/20 11:59 11:59 11:59 11:59 Intake Total 1241 / 1241 1318 / 1318 2391 / 2391 Output Total 775 / 775 2575 / 2575 1525 / 1525 Balance 466 / 466 -1257 / -1257 866 / 866 Weight 250 lb 211 lb 4 oz 197 lb 1 oz 196 lb 7 oz Microbiology Reports for the Last 24 Hours: Microbiology 03/12/20 09:20 Blood Blood Culture - Preliminary NO GROWTH AFTER 48 HOURS 03/12/20 09:23 Blood Blood Culture - Preliminary NO GROWTH AFTER 48 HOURS Narrative: Alert, pleasant. Heart rate regular. Oropharynx clear, no JVD. Lungs have good air movement. Minimal rhonchi, abdomen soft, no edema or clubbing. Neurologic exam notable for global weakness. Assessment and Plan (1) ARPIT (acute kidney injury) Status: Acute Category: Medical Code(s): N17.9 - Acute kidney failure, unspecified (2) Acute respiratory failure with hypoxia Status: Acute Category: Medical Code(s): J96.01 - Acute respiratory failure with hypoxia (3) COVID-19 Status: Acute Category: Medical Code(s): U07.1 - COVID-19 (4) Elevated brain natriuretic peptide (BNP) level Status: Acute Category: Medical Code(s): R79.89 - Other specified abnormal findings of blood chemistry (5) Transaminitis Status: Acute Category: Medical Code(s): R74.01 - Elevation of levels of liver transaminase levels (6) Obesity (BMI 30-39.9) Status: Chronic Category: Medical Code(s): E66.9 - Obesity, unspecified (7) CAP (community acquired pneumonia) Status: Acute Category: Medical Code(s): J18.9 - Pneumonia, unspecified organism (8) Heart failure Status: Acute Category: Medical Code(s): I50.9 - Heart failure, unspecified - Assessment and plan all Dx Assessment and Plan for all problems:: Overall patient seems to be stable from an oxygenation perspective. X-rays are improving. Echocardiogram this morning with preliminary report of reduced ejection fraction. Continue diuretics and watch renal function carefully. PT/OT evaluation today. We will have care management involved to see if there is a placement option versus home health-certainly difficult given her positive Covid status. Remains on stress ulcer and DVT prophylaxis-please note 1 hour critical care time.
--- NOTE | 2020-03-15 09:26 | HMH.OTEV ---
OT Inpatient Evaluation Rehab OT IP Evaluation Start: 03/14/20 08:56 Freq: ONCE Status: Complete Protocol: Document 03/15/20 09:20 DORA (Rec: 03/15/20 09:26 DORA [id number]) Rehab OT IP Assessment Subjective History 84 year old female admitted on 03/12/20 after son found patient being confused, disoriented and unable to care for herself. Patient tested positive for COVID 19. PMH: ARPIT, acute respiratory failure with hypoxia, HLD and HTN. Subjective I'm going home. Objective Patient Orientation Person,Place,Name,Birthday, Year Upper Extremity Gross ROM WNL Bed Mobility bed mobility - supine/sit,bed mobility - rolling Assist Level Supervision/Stand by Transfer Training Sit/Stand Transfer,Sit/Stand/ Step Transfer Assist Level Contact Guard/Hand Hold Chair Transfer Ability Contact Guard/Hand Hold Chair Transfer Technique Stand Step Pivot Lower Body Dressing Ability Assistance X1 Rehab OT IP prob,goals,plan Problems Date of Evaluation: 03/15/20 OT IP Problems Bed Mobility,Transfers,Balance ,Self care,Safety Rehab Potential Rehab Potential Good Plan OT intervention Plan Bed Mobility,Transfers,Balance ,Self care,Safety,Therapeutic Exercise OT Plan Frequency Daily Duration LOS Discharge Goals Bed Mobility Ability Standby Assistance Sit to Stand Chair Transfer Ability Contact Guard/Hand Hold Chair Transfer Ability Contact Guard/Hand Hold Chair Transfer Technique Stand Step Pivot Lower Body Dressing Ability Standby Assistance Discharge Plan OT Discharge Plan Patient verbalize wanting to return home. Recommend Patient to complete HH services when return home. Eval Complexity Eval Charge Codes 60137 - Low Complexity G Codes G -code Required No PHYSICIAN CERTIFICATION: I certify the specified therapy services for Karla Garcia are required, authorized, and reviewed every 30 days.
--- NOTE | 2020-03-15 10:13 | HMH.PTEV ---
Physical Therapy Evaluation Rehab PT IP Evaluation Start: 03/14/20 08:56 Freq: ONCE Status: Active Protocol: Document 03/15/20 10:08 TIFFANY (Rec: 03/15/20 10:12 TIFFANY [id number]) Subjective/History History History This is the initial IP PT evaluation for Karla Garcia. Pt is an 84 y/o female admitted to [facility] for COVID and repiratory distress Subjective Subjective Pt reports no complaints other than wanting to go home - pt is very pleasant and remembers therapist - pt is well known to therapy as she was a [facility] Rehab PT IP Eval Objective Appearance Patient Behavior Appropriate,Cooperative Patient Orientation Person,Place,Name,Birthday, Year,Situation Difficulty following instructions none Speech Pattern Clear,Appropriate Ambulation Patient Able to Ambulate Yes Ambulation Observation IP General Gait Pattern Observation Shuffling Step Ambulation Distance (feet) 25 Ambulation Assistive Device None Ambulation Ability Contact Guard/Hand Hold Balance Ability to Arise Able, uses arms to help Sitting Balance Steady, safe Standing Balance Steady, wide stance Dynamic Sitting Balance Ability Good Dynamic Standing Balance Ability Fair Transfers Bed Transfer Ability Independent Chair Transfer Ability Independent Sit to Stand Bed Transfer Ability Supervision/Stand by Sit to Stand Chair Transfer Ability Supervision/Stand by Rehab PT IP prob,goals,plan Problems Date of Evaluation: 03/15/20 PT IP Problems Gait,Self care,Safety Rehab Potential Rehab Potential Good Equipment Needs Assistive Devices Straight Cane,Rolling / Wheeled Walker Plan PT Intervention Plan Transfers,Gait,Safety, Therapeutic Exercise PT Plan Frequency BID Duration LOS Discharge Goals Bed Transfer Ability Independent Sit to Stand Chair Transfer Ability Supervision/Stand by Ambulation Assistive Device Rolling Walker Ambulation Distance (feet) 30 Discharge Plan PT Discharge Plan due to pt's living situation and PLOF pt would benefit from ST rehab at SNF to allow return home at PLOI and PLOF.
[2020-03-15 11:43] VITALS: BP 164/72; PULSE 72; RESP 20; TEMP 36.5; O2SAT 95
--- NOTE | 2020-03-15 11:51 | SW/DCPLANNER ---
Addendum entered by Cecile William 03/26/20 10:05: SPOKE WITH THE FAMILY THIS MORNING VIA TELEPHONE AND THEY ARE TAKING [place] [facility] BACK HOME... I HAVE MADE CONTACT WITH [facility] SHE IS DISCHARGING AND WILL SEND A NEW PACKET FOR SERVICES TO START SOON POSSIBLE... DAUGHTER HAS REQUESTED FOR NURSING TO GO OVER ALL MEDS TO ENSURE SHE IS TAKING WHAT SHE SHOULD... WILL SPEAK WITH HER NURSE ABOUT THIS... Addendum entered by Cecile William 03/17/20 10:16: SET UP PATIENT WITH HOME HEALTH SERVICES WITH [facility]....I HAVE SPOKEN WITH THE REP FROM [facility] TO CALL PATIENT ONCE SHE GETS HOME AND SPEAK WITH SON...HER O2 HAS BEEN DELIVERED AND SHE IS SET UP TO GO HOME... Addendum entered by Cecile William 03/16/20 14:21: THERE HAS BEEN SOME CONFUSION TO WHETHER THIS PATIENT CAN RETURN HOME OR NOT... KHADIJAH, EXEC. CREATIVE DIRECTOR RECEIVED A MESSAGE FROM DR HENRY'S OFFICE STATING THE SON FROM [place] CALLED AND SAID HIS BROTHER AND SISTER HAD COVID TESTS DONE AND ARE AWAITING RESULTS...I TOLD THE SON WHO IS LOCALLY, [place] THAT I WOULD TRY AND FIND HER A RESIDENTIAL BED BUT I CAN'T GUARANTEE WHERE IT WILL BE.. I EXPLAINED TO HIM THAT IT WOULD HAVE TO BE A FACILITY THAT TAKES COVID PATIENTS AND I'M NOT SURE WHERE IT WILL BE.. I ALSO EXPLAINED THAT SHE IS GOING TO BE READY POSSIBLY [facility] ([facility]).. IF HE WANTED HER PLACED I WOULD NEED TO WORK ON IT TODAY AND HE SAID HE IS GOING TO TAKE HER HOME AND HE WOULD COME AND GET HER.. HE ALSO STATED HE WOULD CALL HIS BROTHER WHOM IS OUT OF STATE AND SPEAK WITH HIM..I TOLD HIM IF SOMETHING CHANGES TO NOTIFY ME SOON POSSIBLE SINCE SHE IS CLOSE TO BEING READY TO DISCHARGE.. I ALSO EXPLAINED TO HIM I CAN SET HER UP WITH HOME HEALTH SERVICES IF THERE IS A NEED.. Addendum entered by Cecile William 03/16/20 06:53: WILL DO A FOLLOW UP CALL THIS MORNING AFTER MD SEES PATIENT AND IF SHE IS MEDICALLY READY FOR A DISPOSITION I WILL MAKE SURE THE PLAN IS FOR THE FAMILY TO TAKE PATIENT HOME AND THEY PROVIDE CARE FOR HER 09/10..... Original Note: PATIENT ADMITTED ON 03/12 WITH A POSITIVE COVID TEST AND WAS ADMITTED TO OUR COVID UNIT... PATIENT RESIDES AT HOME, DR HENRY REQUESTED I SPEAK WITH SON TO SEE WHAT THE PLAN IS FOR HIS MOM ONCE SHE IS MEDICALLY READY FOR A DISPOSITION.. I DID MAKE CONTACT WITH [place] [facility] AND HE SAID HE HAS SPOKEN WITH HIS BROTHER THAT LIVES OUT OF STATE AND HIS SISTER AND THEY WANT HER TO RETURN HOME.. HE STATED HIS SISTER IS GOING TO RETIRE AND STAY HOME WITH HER... I WILL OFFER HOME HEALTH SERVICES IF THIS DOESN'T CHANGE, PHYSICAL THERAPISTS NOTED SHE COULD BENEFIT FROM SHORT TERM SKILLED REHAB SERVICES. I DID SPEAK WITH THE SON REGARDING THAT BUT I ALSO TOLD HIM I DIDN'T KNOW WHERE SHE WOULD HAVE TO GO SINCE MOST NURSING HOMES DON'T TAKE COVID PATIENTS UNLESS THEY HAVE A UNIT SPECIFICALLY FOR COVID AND MOST ONLY TAKE THEIR PATIENTS... ONCE SHE IS MEDICALLY READY I WILL CONFIRM WITH SON THAT THEIR PLAN IS TO TAKE HER HOME...
--- NOTE | 2020-03-15 14:29 | DIET.NUTRFU ---
Pt with improvement PO intakes over the weekend- 50-75%, 15# weight loss rt diuresis, BLE 1+, continued renal improvement. QID protein shake added to diet order. Continuing to monitor.
[2020-03-15 15:57] VITALS: BP 164/72; PULSE 68; RESP 20; TEMP 36.7; O2SAT 95
--- NOTE | 2020-03-15 16:35 | PC.NURSE ---
PATIENT HAS BEEN A&O FOR MOST OF THIS RN'S SHIFT. AT 1630 PATIENT BECAME CONFUSED, TOOK OFF HER GOWN, FOLDED HER PERSONAL BLANKET AND SAT ON THE BEDSIDE COMMODE BARE SKIN. THIS RN INQUIRED WHAT PATIENT WAS DOING. PATIENT REPLIED, I NEED TO GO TO [place]. THIS RN RE ORIENTED PATIENT, PATIENT CONTINUED TO ASK, WELL, WHAT AM I GOING TO DO SINCE I CAN'T GO TO [place]? THIS RN SUGGESTED FOR PATIENT TO SIT IN HER CHAIR AND WATCH TELEVISION, PATIENT AGREED. NO OTHER CONCERNS AT THIS TIME.
[2020-03-15 20:00] VITALS: BP 135/70; PULSE 62; RESP 22; TEMP 36.3; O2SAT 95; O2SAT 98
[2020-03-15 23:55] VITALS: BP 163/70; PULSE 58; RESP 20; TEMP 36.6; O2SAT 91
[2020-03-16 03:31] VITALS: BP 145/59; PULSE 84; RESP 20; TEMP 37.1; O2SAT 92
[2020-03-16 04:47] VITALS: BMI 41.2
--- NOTE | 2020-03-16 05:29 | PC.NURSE ---
Patient is currently resting in bed. Neuro: Alert to person, . Unsure of current date. Has been pleasant throughout night, however, she continually takes off her oxygen. She questioned nursing staff and why we won't just let her . Patients heart rate and blood pressure has been normal t/o night. GI: No n/v/d no bm this shift. Patient did have a small snack. : brenner catheter in place. Urine output adequate. Skin: patient has scattered bruising related to lab draws and iv attempts. Skin overall is intact. Patient complained of pain earlier tonight. [place] given. Patient has slept since taking the medication. She was very restless before the norco. No issues or concerns at this time. Will continue to monitor patient.
[2020-03-16 05:38] LABS: Basophils % 0.3 % (0.1-2.0); Eosinophils % 0.2 % (0.1-12.0); Hematocrit 38.5 % (37.0-47.0); Hemoglobin 11.8 g/dL (12.2-16.2); Lymphocytes # 0.7 K/mm3 (0.7-4.5); Lymphocytes % 16.3 % (10-50); Mean Corpuscular HGB Conc 30.7 g/dL (31.8-35.4); Mean Corpuscular Volume 84.8 fl (81-99); Mean Platelet Volume 8.7 fl (7.4-10.4); Monocytes # 0.6 K/mm3 (0.1-1.0); Monocytes % 12.6 % (1.7-9.3); Neutrophils # 3.2 K/mm3 (1.8-7.8); Neutrophils % 70.5 % (37.0-80.0); Platelet Count 154 K/mm3 (142-424); Red Blood Count 4.54 M/mm3 (4.20-5.40); Red Cell Distribution Width 14.8 % (11.5-17.5); White Blood Count 4.5 K/mm3 (4.8-10.8)
[2020-03-16 05:44] LABS: Chloride 100 mmol/L (98-107); Potassium 3.1 mmoL/L (3.5-5.1); Sodium 142 mmol/L (136-145)
[2020-03-16 05:46] LABS: Blood Urea Nitrogen 22 mg/dl (7-17); Creatinine Clearance Estimated 60 mL/min (50-200); Estimated Glomerular Filt Rate 60 ml/min (>60); GFR (African American) 72 ML/MIN (>60)
[2020-03-16 05:47] LABS: Alanine Aminotransferase 485 U/L (12-78); Albumin Level 3.1 g/dl (3.5-5.0); Albumin/Globulin Ratio 1.1 (1.1-1.8); Alkaline Phosphatase 116 U/L (38-126); Aspartate Amino Transferase 248 U/L (14-36); Bilirubin,Total 0.3 mg/dl (0.2-1.3); Calcium 8.5 mg/dl (8.4-10.2); Globulin 2.8 g/dL (1.3-3.2); Glucose 121 mg/dl (74-100); Total Protein,Serum 5.9 g/dl (6.3-8.2)
[2020-03-16 05:56] LABS: Anion Gap 5.1 mEq/L (5-15)
[2020-03-16 05:57] LABS: Carbon Dioxide 40 mmol/L (22.0-30.0)
--- NOTE | 2020-03-16 06:27 | PC.NURSE ---
co2 notification reported to dr. martines.
--- NOTE | 2020-03-16 07:20 | HMH.ACPN2 ---
Internal Medicine - PN: Subj *Date: 03/16/20 *Time: 09:10 Interval history: Patient did well overnight. Continues to respond quite well to diuresis with improvement in kidney function and liver function. Shortness of breath stable. Tolerating 3 L nasal cannula oxygen. Physical therapy saw Ms. Garcia yesterday, recommend short-term [facility] placement however family would prefer to take her home. Would therefore benefit from home health. Denies nausea, vomiting. Poor appetite however drinking well. Afebrile. Exam Vital signs and Labs for Last 24 Hours: Temp Pulse Resp BP Pulse Ox 98.8 F 84 20 145/59 H 92 L 03/16/20 03:31 03/16/20 03:31 03/16/20 03:31 03/16/20 03:31 03/16/20 03:31 Laboratory Results - last 24 hr 03/16/20 05:20: WBC 4.5 L, RBC 4.54, Hgb 11.8 L, Hct 38.5, MCV 84.8, MCH 26.0 L, MCHC 30.7 L, RDW 14.8, Plt Count 154, MPV 8.7, Neut % (Auto) 70.5, Lymph % (Auto) 16.3, [place] % (Auto) 12.6 H, Eos % (Auto) 0.2, Baso % (Auto) 0.3, Neut # (Auto) 3.2, Lymph # (Auto) 0.7, [place] # (Auto) 0.6, Eos # (Auto) 0.0, Baso # (Auto) 0.0 03/16/20 05:20: Sodium 142, Potassium 3.1 L, Chloride 100, Carbon Dioxide 40 H, Anion Gap 5.1, BUN 22 H, Creatinine 0.90, Estimated Creat Clear 60, Estimated GFR 60, Est GFR ( Amer) 72, Glucose 121 H, Calcium 8.5, Total Bilirubin 0.3, AST 248 H D, ALT 485 H*, Alkaline Phosphatase 116, Total Protein 5.9 L, Albumin 3.1 L, Globulin 2.8, Albumin/Globulin Ratio 1.1 I & O for Last 24 hours: Intake & Output 03/13/20 03/14/20 03/15/20 03/16/20 23:59 23:59 23:59 23:59 Intake Total 2019 / 2019 2211 / 2211 1783 / 1783 Output Total 2550 / 3050 1725 / 1725 3150 / 3150 275 / 275 Balance -531 / -1031 486 / 486 -1367 / -1367 -275 / -275 Weight 95.821 kg 89.386 kg 89.103 kg 92.76 kg - Constitutional no acute distress, obese - *Routine HEENT Exam Head: Present: normocephalic Eye: Present: EOMI, PERRL ENT: Present: mucous membranes moist - *Routine Neck Exam Present: supple. Absent: lymphadenopathy - *Routine Respiratory Exam Present: CTA bilaterally - *Routine Cardiovascular Exam Present: RRR - *Routine Abdominal Exam Present: soft, normoactive bowel sounds. Absent: tenderness - *Routine Extremities Exam Absent: cyanosis, clubbing, edema - *Routine Skin Exam Present: warm. Absent: rash - *Routine Neurological Exam Present: alert, oriented X3 Assessment and Plan (1) ARPIT (acute kidney injury) Status: Acute Category: Medical Code(s): N17.9 - Acute kidney failure, unspecified (2) Acute respiratory failure with hypoxia Status: Acute Category: Medical Code(s): J96.01 - Acute respiratory failure with hypoxia (3) COVID-19 Status: Acute Category: Medical Code(s): U07.1 - COVID-19 (4) Elevated brain natriuretic peptide (BNP) level Status: Acute Category: Medical Code(s): R79.89 - Other specified abnormal findings of blood chemistry (5) Transaminitis Status: Acute Category: Medical Code(s): R74.01 - Elevation of levels of liver transaminase levels (6) Obesity (BMI 30-39.9) Status: Chronic Category: Medical Code(s): E66.9 - Obesity, unspecified (7) CAP (community acquired pneumonia) Status: Acute Category: Medical Code(s): J18.9 - Pneumonia, unspecified organism (8) Heart failure Status: Acute Qualifiers: Heart failure type: combined systolic and diastolic Heart failure chronicity: acute on chronic Qualified Code(s): I50.43 - Acute on chronic combined systolic (congestive) and diastolic (congestive) heart failure Category: Medical Code(s): I50.9 - Heart failure, unspecified - Assessment and plan all Dx Assessment and Plan for all problems:: 84 yo F with covid -19 pneumonia, acute hypoxemic respiratory failure, and AoC CHF combined type. This morning she overall patient seems to be stable from an oxygenation perspective. X-rays are improving. Echocardiogram from yesterday with elevated r
[2020-03-16 08:00] VITALS: BP 157/82; PULSE 65; RESP 22; TEMP 36.6; O2SAT 92
--- NOTE | 2020-03-16 11:15 | PC.NURSE ---
Sputum cup given to patient. Patient verbalizes understanding to produce a sputum sample.
--- NOTE | 2020-03-16 11:16 | P.PN_ITS ---
Internal Medicine - PN: Subj *Date: 03/16/20 *Time: 11:16 Exam Vital signs and Labs for Last 24 Hours: Temp Pulse Resp BP Pulse Ox 97.9 F 65 22 157/82 H 92 L 03/16/20 08:00 03/16/20 08:00 03/16/20 08:00 03/16/20 08:00 03/16/20 08:00 Laboratory Results - last 24 hr 03/16/20 05:20: WBC 4.5 L, RBC 4.54, Hgb 11.8 L, Hct 38.5, MCV 84.8, MCH 26.0 L, MCHC 30.7 L, RDW 14.8, Plt Count 154, MPV 8.7, Neut % (Auto) 70.5, Lymph % (Auto) 16.3, [place] % (Auto) 12.6 H, Eos % (Auto) 0.2, Baso % (Auto) 0.3, Neut # (Auto) 3.2, Lymph # (Auto) 0.7, [place] # (Auto) 0.6, Eos # (Auto) 0.0, Baso # (Auto) 0.0 03/16/20 05:20: Sodium 142, Potassium 3.1 L, Chloride 100, Carbon Dioxide 40 H, Anion Gap 5.1, BUN 22 H, Creatinine 0.90, Estimated Creat Clear 60, Estimated GFR 60, Est GFR ( Amer) 72, Glucose 121 H, Calcium 8.5, Total Bilirubin 0.3, AST 248 H D, ALT 485 H*, Alkaline Phosphatase 116, Total Protein 5.9 L, Albumin 3.1 L, Globulin 2.8, Albumin/Globulin Ratio 1.1 I & O for Last 24 hours: Intake & Output 03/13/20 03/14/20 03/15/20 03/16/20 23:59 23:59 23:59 23:59 Intake Total 2018 2211 / 2211 1783 / 1783 170 / 170 Output Total 2550 / 3050 1725 / 1725 3150 / 3150 1475 / 1475 Balance -531 / -1031 486 / 486 -1367 / -1367 -1305 / -1305 Weight 95.821 kg 89.386 kg 89.103 kg 92.76 kg Assessment and Plan (1) ARPIT (acute kidney injury) Status: Acute Category: Medical Code(s): N17.9 - Acute kidney failure, unspecified (2) Acute respiratory failure with hypoxia Status: Acute Category: Medical Code(s): J96.01 - Acute respiratory failure with hypoxia (3) COVID-19 Status: Acute Category: Medical Code(s): U07.1 - COVID-19 (4) Elevated brain natriuretic peptide (BNP) level Status: Acute Category: Medical Code(s): R79.89 - Other specified abnormal findings of blood chemistry (5) Transaminitis Status: Acute Category: Medical Code(s): R74.01 - Elevation of levels of liver transaminase levels (6) Obesity (BMI 30-39.9) Status: Chronic Category: Medical Code(s): E66.9 - Obesity, unspecified (7) CAP (community acquired pneumonia) Status: Acute Category: Medical Code(s): J18.9 - Pneumonia, unspecified organism (8) Heart failure Status: Acute Qualifiers: Heart failure type: combined systolic and diastolic Heart failure chronicity: acute on chronic Qualified Code(s): I50.43 - Acute on chronic combined systolic (congestive) and diastolic (congestive) heart failure Category: Medical Code(s): I50.9 - Heart failure, unspecified The patient's infection will respond to the chosen ABx?: Yes Is the patient receiving the right drug, dose, and route?: Yes Could a more targeted ABx be ordered?: No
[2020-03-16 12:00] VITALS: BP 130/74; PULSE 75; RESP 20; TEMP 36.2; O2SAT 92
[2020-03-16 16:00] VITALS: BP 142/74; PULSE 80; RESP 18; TEMP 36.3; O2SAT 93
--- NOTE | 2020-03-16 18:33 | PC.NURSE ---
pt has been confused throughout shift. iv patent. elidia was dc this shift. pt has been in and out of bed this shift. removing o2. remains on 3LNC. o2 sat remains in 90's. call light in reach. vss. will continue to monitor
[2020-03-16 20:00] VITALS: BP 152/68; PULSE 71; RESP 18; TEMP 36.7; O2SAT 91
[2020-03-16 23:45] VITALS: BP 154/63; PULSE 65; RESP 18; TEMP 36.6; O2SAT 90
[2020-03-17 03:46] VITALS: BP 156/90; PULSE 66; RESP 22; TEMP 36.6; O2SAT 93
--- NOTE | 2020-03-17 04:07 | PC.NURSE ---
Neuro: Patient is oriented to self only. Understand she is in the hospital but is anxious to leave as soon as possible. Patient gets very disoriented while sleeping. Will remove oxygen and pulse ox. Gets disoriented to time of day so will get out of bed to get up for the day after only a couple hours of sleep. Pulm: Patient is on 3l NC. Desat's to 70's without oxygen. Continually will remove her oxygen while sleeping. GI: Appetite is good. No n/v/d. No bm this shift. : Patient used bedside commode this evening. Roughly 250 in urine. Brief in place. Skin is intact. Cardiac: Patient is normotensive. Sinus anthony while sleeping. Only concern is patient removing oxygen and desating. Will continue to monitor patient.
[2020-03-17 04:24] VITALS: O2SAT 78
[2020-03-17 05:00] VITALS: BMI 40.6
[2020-03-17 06:32] LABS: Basophils % 0.2 % (0.1-2.0); Eosinophils % 0.1 % (0.1-12.0); Hematocrit 39.7 % (37.0-47.0); Hemoglobin 11.2 g/dL (12.2-16.2); Lymphocytes # 0.6 K/mm3 (0.7-4.5); Lymphocytes % 16.7 % (10-50); Mean Corpuscular HGB Conc 28.1 g/dL (31.8-35.4); Mean Corpuscular Hemoglobin 24.4 pg (27.0-31.2); Mean Corpuscular Volume 86.7 fl (81-99); Mean Platelet Volume 8.7 fl (7.4-10.4); Monocytes # 0.5 K/mm3 (0.1-1.0); Monocytes % 12.5 % (1.7-9.3); Neutrophils # 2.5 K/mm3 (1.8-7.8); Neutrophils % 70.6 % (37.0-80.0); Platelet Count 138 K/mm3 (142-424); Red Blood Count 4.58 M/mm3 (4.20-5.40); Red Cell Distribution Width 14.3 % (11.5-17.5); White Blood Count 3.6 K/mm3 (4.8-10.8)
[2020-03-17 06:35] LABS: Chloride 93 mmol/L (98-107); Sodium 142 mmol/L (136-145)
[2020-03-17 06:36] LABS: Potassium 3.1 mmoL/L (3.5-5.1)
[2020-03-17 06:38] LABS: Alanine Aminotransferase 388 U/L (12-78); Alkaline Phosphatase 122 U/L (38-126); Aspartate Amino Transferase 132 U/L (14-36); Bilirubin,Total 0.5 mg/dl (0.2-1.3); Blood Urea Nitrogen 22 mg/dl (7-17); Creatinine Clearance Estimated 59 mL/min (50-200); Estimated Glomerular Filt Rate 68 ml/min (>60); GFR (African American) 82 ML/MIN (>60)
[2020-03-17 06:39] LABS: Albumin Level 3.3 g/dl (3.5-5.0); Albumin/Globulin Ratio 1.2 (1.1-1.8); Calcium 8.6 mg/dl (8.4-10.2); Globulin 2.8 g/dL (1.3-3.2); Glucose 117 mg/dl (74-100); Total Protein,Serum 6.1 g/dl (6.3-8.2)
[2020-03-17 07:14] LABS: Anion Gap 6.1 mEq/L (5-15)
[2020-03-17 07:15] LABS: Carbon Dioxide 46 mmol/L (22.0-30.0)
--- NOTE | 2020-03-17 07:22 | PC.NURSE ---
co2 and ALT labs reported to dr. philippe. no new orders.
[2020-03-17 07:58] VITALS: BP 159/78; PULSE 76; RESP 21; TEMP 36.6; O2SAT 93
--- NOTE | 2020-03-17 08:34 | HMH.DCSUM ---
General - General Admission date:: 03/12/20 Discharge date: 03/17/20 HPI HPI: 84-year-old white female with multiple medical problems who was in her normal state of health at her home when her son found her yesterday confused, disoriented and unable to care for herself. Brought to the emergency department where she gave a history of low-grade fevers and a cough. Work-up revealed significant dehydration, acute kidney injury, transaminitis elevation and evidence of fluid overload with BNP elevation and patchy alveolar infiltrates on chest x-ray. She was also noted to have COVID-19 positive serology on PCR testing and was admitted to our [facility] intensive care unit for oxygenation, further diagnostic testing and antibiotics. She this morning states that she feels pretty good and does not think she was sick. Wonders why she has to stay in the hospital. Hospital Course Hospital Course: Patient was admitted, placed on broad-spectrum antibiotics, dexamethasone and ICU DVT and stress ulcer prophylaxis. She did very well over the next couple of days. Acute kidney injury and elevated transaminitis resolved with IV fluids and supportive care. Patient really never felt shortness of air, and did well throughout her hospital stay. She was evaluated by physical therapy and they recommended home health evaluation her family has made some arrangements to have someone stay with her for day and night over the next couple of days. She desperately wished to go home today and she is down to 3 L of nasal cannula oxygenation and is eating well with resolution of diarrhea. Diminished ejection fraction on echocardiogram with elevated BNP levels in the diagnosis of acute systolic heart failure was made, she will be discharged on low-dose p.o. Lasix. We will reevaluate heart therapy failure in the office for Plan will be to discharge her home on low-dose Eliquis for DVT/vasculitis prophylaxis from COVID-19, dexamethasone for 1 week, she will follow-up in our office in the next week and with home health. Please note I performed a home health evaluation [id number] today and determined that patient cannot leave her home without a significant degree of difficulty based on oxygen needs, fatigue and dyspnea. She needs home health for longterm care, PT/OT and home safety evaluation. Need a CBC and CMP drawn on March 22 by home health. Objective Vital signs: Temp Pulse Resp BP Pulse Ox 97.9 F 76 21 159/78 H 93 L 03/17/20 07:58 03/17/20 07:58 03/17/20 07:58 03/17/20 07:58 03/17/20 07:58 no acute distress, obese Comments: On oxygen, alert, oriented x2, a little fuzzy about the date - *Routine HEENT Exam Head: Present: normocephalic Eye: Present: EOMI, PERRL ENT: Present: mucous membranes moist - *Routine Neck Exam Present: supple - *Routine Respiratory Exam Present: rhonchi (But excellent air movement) - *Routine Cardiovascular Exam Present: RRR - *Routine Abdominal Exam Present: soft, normoactive bowel sounds. Absent: tenderness - *Routine Extremities Exam Absent: cyanosis, clubbing, edema - *Routine Skin Exam Present: warm. Absent: rash - Detailed Eye Exam Eyelids: Bilateral normal inspection Results Labs on day of discharge: Labs from last 24 hours 03/17/20 03/17/20 06:00 06:00 WBC 3.6 L RBC 4.58 Hgb 11.2 L Hct 39.7 MCV 86.7 MCH 24.4 L MCHC 28.1 L RDW 14.3 Plt Count 138 L MPV 8.7 Neut % (Auto) 70.6 Lymph % (Auto) 16.7 [place] % (Auto) 12.5 H Eos % (Auto) 0.1 Baso % (Auto) 0.2 Neut # (Auto) 2.5 Lymph # (Auto) 0.6 L [place] # (Auto) 0.5 Eos # (Auto) 0.0 Baso # (Auto) 0.0 Sodium 142 Potassium 3.1 L Chloride 93 L Carbon Dioxide 46 H* Anion Gap 6.1 BUN 22 H Creatinine 0.80 Estimated Creat Clear 59 Estimated GFR 68 Est GFR ( Amer) 82 Glucose 117 H Calcium 8.6 Total Bilirubin 0.5 AST 132 H D ALT 388 H*
== END 2020-03-17 13:50 | disposition home health service (06) | DRG 177 ==
LOC: ER 13:00 → ICU 22:52
PROVIDERS: Admitting Provider Emergency Medicine; Emergency Provider Family Medicine; PCP Internal Medicine Adolescent Medicine; Visit Provider Internal Medicine Adolescent Medicine
DX: U07.1 COVID-19 (principal); J12.89 Other viral pneumonia; J96.01 Acute respiratory failure with hypoxia; I50.21 Acute systolic (congestive) heart failure; Z68.41 Body mass index [BMI] 40.0-44.9, adult; I11.0 Hypertensive heart disease with heart failure; E86.0 Dehydration; E66.9 Obesity, unspecified; R74.01 Elevation of levels of liver transaminase levels; Z79.82 Long term (current) use of aspirin; Z79.899 Other long term (current) drug therapy
CPT/HCPCS: 36415; 70450; 71045; 71250; 74176; 80053; 81001; 82140; 83605; 83690; 83880; 84145; 85025; 85610; 87040; 87070; 87205; 87581; 87633; 87798; 93005; 93306; 96365; 96367; 97110; 97161; 97165; 97530; 99285; J0456; J2405

== ENCOUNTER 2020-03-24 14:44 | Inpatient (IN) | payer MEDICARE, SELFPAY ==
[2020-03-24] VITALS (12 sets, daily range): BP systolic 82–114; BP diastolic 40–87; PULSE 70–87; RESP 14–22; TEMP 36.6–37.3; O2SAT 90–98; BMI 36.3; BMI 40.5
--- NOTE | 2020-03-24 14:46 | XR_ITS ---
PROCEDURE: XR CHEST PORTABLE CLINICAL HISTORY: short of breath COMPARISON: CR XR CHEST 2V from 02/19/[address] CHEST WO CON from 03/12/2020 CR XR CHEST PORTABLE from 03/12/2020 CR XR CHEST PORTABLE from 03/14/2020 FINDINGS: There is cardiomegaly without failure. Atelectatic changes are present in both lower lobes. Upper lobes are clear. No acute bony abnormalities. IMPRESSION: Cardiomegaly with bilateral lower lobe atelectasis Dictated by: Uriel Posada MD 03/24/2020 17:22 Uriel Posada MD in [place] 03/24/2020 17:22
--- NOTE | 2020-03-24 14:47 | ECG_ITS ---
APPROVED REPORT Exam: Resting ECG HR:76 bpm ECG Measurements Heart Rate 76 AXES WA 126 P 28 QRSd 102 QRS -18 QT 400 T 125 QTc 450 Conclusion Sinus tachycardia with 2nd degree AV block with 2:1 AV conduction Minimal voltage criteria for LVH, may be normal variant ST & T wave abnormality, consider lateral ischemia Abnormal ECG Electronically signed by : Per Hoyos, 03/25/2020 19:46:24
--- NOTE | 2020-03-24 15:00 | HMH.EDGENADL ---
ED Disposition Clinical Impression: Hospital-acquired pneumonia, COVID-19, Acute respiratory failure with hypoxia and hypercarbia Disposition: Admitted As Inpatient Condition on Discharge: Serious Referrals: Per Hoyos MD [Primary Care Provider] - - Critical Care Critical Care Time: Yes Attestation: On 03/24/20, the high probability of a clinically significant, sudden or life threatening deterioration of the following system(s) required my full and direct attention, intervention and personal management. The time I documented below is in addition to time spent performing reported procedures but includes the following listed in this critical care notation. Total Critical Care Time: 36 Vital system(s) involved:: Central Nervous System, Respiratory Failure My critical care processes included: Assessment & monitoring of V/S, Initial and Re-exams, Data Review/Interpretation, Coordinating Care, Medication Orders and management, Documentation Medical Decision Making - Medical Records Medical records reviewed: Yes: I reviewed the patient's medical records. - Elie Inquiry Pt receiving controlled substance: No Vital Signs: 03/24/20 14:57 03/24/20 15:15 03/24/20 15:45 Temperature 98 F Temperature Source Axillary Pulse Rate [Left] 70 75 87 Respiratory Rate 22 16 Blood Pressure [Right Arm] 94/50 L 82/46 L 100/54 L Blood Pressure Mean [Right Arm] 64 58 69 Blood Pressure Source [Right Arm] Automatic Cuff Automatic Cuff Manual Cuff/ Auscultation Blood Pressure Position [Right Arm] Sitting Sitting 02 Sat by Pulse Oximetry 96 95 95 Oxygen Delivery Method Nasal Cannula Nasal Cannula Nasal Cannula Oxygen Flow Rate (LPM) 2 2 2 03/24/20 16:27 03/24/20 16:30 03/24/20 17:00 Temperature Temperature Source Pulse Rate [Left] 75 71 70 Respiratory Rate 16 14 19 Blood Pressure [Right Arm] 114/87 105/47 L 107/52 L Blood Pressure Mean [Right Arm] 96 66 70 Blood Pressure Source [Right Arm] Automatic Cuff Automatic Cuff Automatic Cuff Blood Pressure Position [Right Arm] Sitting Sitting Sitting 02 Sat by Pulse Oximetry 98 90 L 97 Oxygen Delivery Method Nasal Cannula Room Air Room Air Oxygen Flow Rate (LPM) 2 - Lab Data Lab Results 03/24/20 14:46: VBG pH 7.36, VBG pCO2 76.2 H, VBG pO2 44.1 H, VBG HCO3 42.2 H, VBG Total CO2 44.5 H, VBG O2 Saturation 78.8 H, VBG Base Excess 16.7 H 03/24/20 14:50: WBC 16.6 H, RBC 5.00, Hgb 13.0, Hct 41.0, MCV 81.9, MCH 26.0 L, MCHC 31.7 L, RDW 15.4, Plt Count 216, MPV 10.4, Neut % (Auto) 87.3 H, Lymph % (Auto) 3.5 L, [place] % (Auto) 6.9, Eos % (Auto) 1.1, Baso % (Auto) 1.2, Neut # (Auto) 14.5 H, Lymph # (Auto) 0.6 L, [place] # (Auto) 1.2 H, Eos # (Auto) 0.2, Baso # (Auto) 0.2, Total Counted 100, Neutrophils % (Manual) 83 H, Band Neutrophils % 1.0, Lymphocytes % (Manual) 2 L, Monocytes % (Manual) 9, Eosinophils % (Manual) 2, Metamyelocytes % 3.0 H, Platelet Estimate Normal, Hypochromasia 1+, Stomatocytes 1+ 03/24/20 14:50: D-Dimer 1.37 03/24/20 14:50: Sodium 133 L, Potassium 2.7 L*, Chloride 83 L, Carbon Dioxide 45 H*, Anion Gap 7.7, BUN 47 H, Creatinine 1.40 H, Estimated Creat Clear 47, Estimated GFR 36 L, Est GFR ( Amer) 43 L, Glucose 110 H, Calcium 8.3 L, Ferritin 109, Total Bilirubin 0.7, AST 29, ALT 40, Alkaline Phosphatase 100, Troponin I 0.11 H, C-Reactive Protein 66.2 H, Total Protein 6.1 L, Albumin 3.3 L, Globulin 2.8, Albumin/Globulin Ratio 1.2 03/24/20 14:50: SARS-CoV-2 IgG Ab (Rapid) Negative, SARS-CoV-2 IgM Ab (Rapid) Positive A 03/24/20 14:51: Lactate 1.5 Result diagrams: 03/24/20 14:50 03/24/20 14:50 Orders (Tests/Meds): ED MEDICATIONS Generic Name Dose Route Start Last Admin Trade Name Freq PRN Reason Stop Dose Admin Norepinephrine Bitartrate 8 mg 258 mls @ 3.87 mls/hr 03/24/20 16:45 / Dextrose IV 04/23/20 16:44 .Q24H YESI Protocol 2 MCG/MIN Cefepime HCl 2 gm/ Sodium 100 mls @ 100 mls/hr 03/24/20 17:45 Chloride IV 04/07/20 17:44 Q8H
[2020-03-24 15:05] LABS: Basophils # 0.2 K/mm3 (0-0.2); Basophils % 1.2 % (0.1-2.0); Eosinophils # 0.2 K/mm3 (0.0-0.4); Eosinophils % 1.1 % (0.1-12.0); Lymphocytes # 0.6 K/mm3 (0.7-4.5); Lymphocytes % 3.5 % (10-50); Mean Corpuscular HGB Conc 31.7 g/dL (31.8-35.4); Mean Corpuscular Volume 81.9 fl (81-99); Mean Platelet Volume 10.4 fl (7.4-10.4); Monocytes # 1.2 K/mm3 (0.1-1.0); Monocytes % 6.9 % (1.7-9.3); Neutrophils # 14.5 K/mm3 (1.8-7.8); Neutrophils % 87.3 % (37.0-80.0); Platelet Count 216 K/mm3 (142-424); Red Cell Distribution Width 15.4 % (11.5-17.5); White Blood Count 16.6 K/mm3 (4.8-10.8)
[2020-03-24 15:14] LABS: MANUAL DIFFERENTIAL MANUAL DIFFERENTIAL (MANUAL DIFF)
[2020-03-24 15:20] LABS: Chloride 83 mmol/L (98-107); Sodium 133 mmol/L (136-145)
[2020-03-24 15:22] LABS: Potassium 2.7 mmoL/L (3.5-5.1)
[2020-03-24 15:23] LABS: Alanine Aminotransferase 40 U/L (12-78); Albumin Level 3.3 g/dl (3.5-5.0); Albumin/Globulin Ratio 1.2 (1.1-1.8); Alkaline Phosphatase 100 U/L (38-126); Aspartate Amino Transferase 29 U/L (14-36); Bilirubin,Total 0.7 mg/dl (0.2-1.3); Blood Urea Nitrogen 47 mg/dl (7-17); Calcium 8.3 mg/dl (8.4-10.2); Creatinine Clearance Estimated 47 mL/min (50-200); Estimated Glomerular Filt Rate 36 ml/min (>60); GFR (African American) 43 ML/MIN (>60); Globulin 2.8 g/dL (1.3-3.2); Glucose 110 mg/dl (74-100); Total Protein,Serum 6.1 g/dl (6.3-8.2)
--- NOTE | 2020-03-24 15:23 | PC.NURSE ---
Took Critical lab value via phone. Potassium 2.7. Notified
[2020-03-24 15:28] LABS: D-Dimer 1.37 ug/mL (0.15-8.0)
[2020-03-24 15:29] LABS: C-Reactive Protein 66.2 mg/L (0-4)
[2020-03-24 15:32] LABS: Anion Gap 7.7 mEq/L (5-15); Carbon Dioxide 45 mmol/L (22.0-30.0)
[2020-03-24 15:33] LABS: VBG Base Excess 16.7 mmol/L (-2.4-2.3); VBG HCO3 42.2 mmol/L (23-30); VBG Oxygen Saturation 78.8 % (50-70); VBG PH 7.36 mmol/L (7.31-7.41); VBG PO2 44.1 mmol/L (28-40); VBG Total CO2 44.5 mmol/L (23-27)
[2020-03-24 15:37] LABS: VBG PCO2 76.2 mmol/L (35-51)
[2020-03-24 15:37] LABS: Eosinophils % 2 % (0-3); Hypochromasia 1+; Lymphocytes % 2 % (10-50); Monocytes % 9 % (2-9); Neutrophils % 83 % (42-76); Platelet Estimate Normal; Stomatocytes 1+; Total Cells Counted 100
[2020-03-24 15:38] LABS: Troponin I 0.11 ng/ml (0.00-0.034)
[2020-03-24 15:41] LABS: Coronavirus 19 IgG Antibody Negative (Negative)
[2020-03-24 15:43] LABS: Coronavirus 19 IgM Antibody Positive (Negative)
--- NOTE | 2020-03-24 15:43 | PC.NURSE ---
Notified MD of pressure. Advised to continue with fluid bolus. Manual pressure 100/54
--- NOTE | 2020-03-24 15:48 | PC.NURSE ---
notified of critical lab values
[2020-03-24 15:58] LABS: Lactic Acid 1.5 mmol/L (0.7-2.1)
[2020-03-24 16:01] LABS: Ferritin 109 ng/ml (11.1-264)
--- NOTE | 2020-03-24 16:23 | PC.NURSE ---
MEd rec confirmed with external med rec
--- NOTE | 2020-03-24 16:36 | PC.NURSE ---
Pharmacy brought levophed drip. MD advises to hold off on starting the drip at this time
[2020-03-24 16:44] LABS: Adenovirus,PCR Not Detected (NotDetected); Bordetella Pertussis Not Detected (NotDetected); Chlamydophila Pneumoniae, PCR Not Detected (NotDetected); Coronavirus 229E Not Detected (NotDetected); Coronavirus NL63 Not Detected (NotDetected); Coronavirus OC43 Not Detected (NotDetected); Coronovirus HKU1,PCR Not Detected (NotDetected); Human Metapneumovirus Not Detected (NotDetected); Influenza A, PCR Not Detected (NotDetected); Influenza AH1, 2009 Not Detected (NotDetected); Influenza AH1, PCR Not Detected (NotDetected); Influenza AH3,PCR Not Detected (NotDetected); Influenza B, PCR Not Detected (NotDetected); Mycoplasma Pneumoniae, PCR Not Detected (NotDetected); Parainfluenza 1, PCR Not Detected (NotDetected); Parainfluenza 2, PCR Not Detected (NotDetected); Parainfluenza 3, PCR Not Detected (NotDetected); Parainfluenza 4, PCR Not Detected (NotDetected); Respiratory Syncytial Virus Not Detected (NotDetected); Rhinovirus/Enterovirus Not Detected (NotDetected)
--- NOTE | 2020-03-24 17:17 | PC.NURSE ---
DR. Romain catherine
--- NOTE | 2020-03-24 17:28 | PC.NURSE ---
speaking with Dr. Hoyos
--- NOTE | 2020-03-24 17:28 | PC.NURSE ---
Dr De Jesus talking to Dr Hoyos at this time.
[2020-03-24 18:14] LABS: Coronavirus 19, PCR Detected (NotDetected)
--- NOTE | 2020-03-24 18:20 | PC.NURSE ---
notified ER pt swab is covid positive
[2020-03-25] VITALS (8 sets, daily range): BP systolic 100–130; BP diastolic 54–76; PULSE 66–89; RESP 15–21; TEMP 36.1–37.1; O2SAT 85–95; BMI 40.0
--- NOTE | 2020-03-25 04:57 | PC.NURSE ---
Rested well throughout night. PRN norco given once for pt's chronic pain w/ adequate relief. Weaned to 1 L O2 this AM, tolerating well. No s/s of resp distress, denies being SOA. NSR on tely. Pt did have one loose stool at beginning of shift, no more since that time. Voided 400 cc of urine this shift, urine clear and drk yellow/dougie in color. Ambulates w/ assistance x1 to BS, was incontinent of urine once this shift. Pt states that she is hot this AM and that she would rather sleep w/ her gown off, gown is off and curtains pulled for privacy. Remained afebrile. Skin intact. Teds in place to BLE. No needs voiced. Bed safety in place. Call [place] w/in reach.
--- NOTE | 2020-03-25 07:55 | P.CONPHA_ITS ---
[facility] Pharmacy VTE Monitoring - Patient Demographics Admission date: 03/24/20 Report Date: 03/25/20 Time: 07:55 Allergies/Adverse Reactions: Patient Allergies No Known Allergies Allergy (Verified 01/21/20 13:02) Height: 1.52 m Weight: 93.043 kg Patient Problems: Current Active Problems COVID-19 (Acute) Hospital-acquired pneumonia (Acute) Acute respiratory failure with hypoxia and hypercarbia (Acute) - VTE Risk Labs: VTE Related Lab Results Hgb 13.0 g/dL (12.2-16.2) 03/24/20 14:50 Hct 41.0 % (37.0-47.0) 03/24/20 14:50 Plt Count 216 K/mm3 (142-424) 03/24/20 14:50 BUN 47 mg/dl (7-17) H 03/24/20 14:50 Creatinine 1.40 mg/dl (0.52-1.04) H 03/24/20 14:50 Estimated Creat Clear 47 mL/min (50-200) 03/24/20 14:50 Was VTE Risk Assessment Performed: Yes VTE Score: 7 VTE Risk Level: Moderate Risk - Prophylaxis VTE Prophylaxis Ordered?: Yes Types of VTE Prophylaxis: TEDS Knee High, Pharmacological Location of Applied Device: Bilateral Lower Extremeties Pharmacologic Type: Other (ELIQUIS)
[2020-03-25 08:26] LABS: Basophils # 0.1 K/mm3 (0-0.2); Basophils % 0.4 % (0.1-2.0); Eosinophils # 0.2 K/mm3 (0.0-0.4); Eosinophils % 1.5 % (0.1-12.0); Hematocrit 39.9 % (37.0-47.0); Lymphocytes # 0.5 K/mm3 (0.7-4.5); Lymphocytes % 4.6 % (10-50); Mean Corpuscular HGB Conc 28.8 g/dL (31.8-35.4); Mean Corpuscular Volume 86.8 fl (81-99); Mean Platelet Volume 12.1 fl (7.4-10.4); Monocytes # 1.2 K/mm3 (0.1-1.0); Monocytes % 10.7 % (1.7-9.3); Neutrophils # 9.6 K/mm3 (1.8-7.8); Neutrophils % 82.8 % (37.0-80.0); Platelet Count 150 K/mm3 (142-424); Red Cell Distribution Width 15.3 % (11.5-17.5); White Blood Count 11.6 K/mm3 (4.8-10.8)
[2020-03-25 08:34] LABS: Hemoglobin 11.5 g/dL (12.2-16.2)
[2020-03-25 08:38] LABS: Blood Urea Nitrogen 36 mg/dl (7-17); Calcium 8.2 mg/dl (8.4-10.2); Chloride 90 mmol/L (98-107); Creatinine Clearance Estimated 50 mL/min (50-200); Estimated Glomerular Filt Rate 43 ml/min (>60); GFR (African American) 52 ML/MIN (>60); Glucose 79 mg/dl (74-100); Sodium 136 mmol/L (136-145)
[2020-03-25 08:45] LABS: Anion Gap 9.8 mEq/L (5-15); Carbon Dioxide 39 mmol/L (22.0-30.0)
--- NOTE | 2020-03-25 08:56 | HMH.HP ---
*Admission Date: 03/24/20 *Chief complaint: Fever, mental status changes *History of present illness: In summary this is an 84-year-old female, recent Covid positive, presenting to the emergency department with lethargy. Patient is somewhat fatigued on arrival. Her vital signs are stable. Hypertensive. Differential diagnoses include worsening Covid pneumonia, hyper inflammatory syndrome, renal insufficiency, dehydration, urinary tract infection, ACS. Plan to obtain CBC, CMP, chest x-ray, EKG, troponin profile, D-dimer, ferritin, CRP I reviewed patient's medical record. She was discharged from our hospital on March 17, 2020. At that time she was discharged home on low-dose Eliquis, Lasix, steroids. Initial laboratory results remarkable for elevated white count at 16 K. X-ray shows low lung volumes and airspace opacities in the lower lobes, worse on the right. Concern for fluid, given patient's history of heart failure. Also concern for persistent pneumonia. Labs show hypokalemia with potassium of 2.7. Patient given IV potassium repletion. Case discussed with Dr. Hoyos. We will treat her for hospital-acquired pneumonia. Given vancomycin, cefepime, Levaquin. Continue IV fluids with 50 mL/h of LR. Family does not want to pursue aggressive management. They do not want BiPAP. They do not want intubation or chest compressions. Will focus on her treatment and comfort. Per ER, agree with presentation and plan. [facility] History I have reviewed the patient's past medical history: Yes Medical History: Reports:: Hyperlipidemia, Hypertension Denies:: Cancer, Diabetes Mellitus Type 1, Diabetes Mellitus Type 2 (Denies), Internal Pacemaker, MRSA *Have you ever received a pneumonia vaccine?: Yes *Have you received a flu vaccine this season?: Yes Other Medical History: Reports: Arthritis Comment:: 19 pneumonia as noted above Laterality Cases: Right: Arthroscopy Knee, Bilateral: Tonsillectomy Other Surgeries: Yes: Appendectomy, Cholecystectomy, Colonoscopy, Hysterectomy-Total. No: Pacemaker Amputation: No Fractures: No - *Social History Smoking Status: Never smoker Alcohol Intake: never Alcohol Intake Frequency:: other *Occupational Status:: unemployed Housing: house Household Members: none *Travel in the last 8 weeks: None Family Hx:: Heart Attack, Hypertension Review of Systems - Review of Systems Review of systems:: pertinent systems reviewed and negative unless documented below Is awake and alert this morning. Denies complaints, denies respiratory complaints, pain or chest complaints. Complete 10 point review of systems as noted below. - *Neurologic Denies confusion, Denies dizziness, Denies dizziness Meds Home Medications Medication Instructions Recorded Confirmed Type aspirin 81 mg tablet,delayed 81 mg PO DAILY 05/21/17 03/24/20 History release atenolol 50 mg tablet 50 mg PO HS 05/21/17 03/24/20 History cyanocobalamin (vitamin B-12) 2,500 mcg PO DAILY tab 05/21/17 03/24/20 History 1,000 mcg tablet furosemide 20 mg tablet 20 mg PO BID tab 05/21/17 03/24/20 History gabapentin 300 mg capsule 300 mg PO QID cap 05/21/17 03/24/20 History hydrocodone 10 mg-acetaminophen 1 tab PO QIDP PRN 05/21/17 03/24/20 History 325 mg tablet lisinopril 20 mg tablet 20 mg PO DAILY 05/21/17 03/24/20 History potassium chloride 10 mEq 10 meq PO DAILY 90 Days #90 11/12/17 03/24/20 History tablet,extended release(part/cryst) Apixaban [Eliquis 2.5mg tab] 2.5 mg PO BID 03/24/20 03/24/20 History dexAMETHasone [Decadron] 4 mg PO BID 03/24/20 03/24/20 History Allergies Allergy/AdvReac Type Severity Reaction Status Date / Time No Known Allergies Allergy Verified 01/21/20 13:02 Exam Vital signs and Labs for Last 24 Hours: Temp Pulse Resp BP Pulse Ox 97.8 F 85 16 116/67 94 L 03/25/20 08:00 03/25/20 08:00 03/25/20 04:00 03/25/20 08:00 03/25/20 08:00 Laboratory Results - last 24 hr 03/24/20 1
[2020-03-25 09:00] LABS: Potassium 2.8 mmoL/L (3.5-5.1)
--- NOTE | 2020-03-25 09:03 | HMH.PHACONS ---
- Pharmacy Consult Date: 03/25/20 Time: 09:03 Referring provider: DR. HENRY Reason for Consult:: VANCOMYCIN DOSING Allergies and ADEs:: Allergies Allergy/AdvReac Type Severity Reaction Status Date / Time No Known Allergies Allergy Verified 01/21/20 13:02 Home Medications:: Home Medications Medication Instructions Recorded Confirmed Type aspirin 81 mg tablet,delayed 81 mg PO DAILY 05/21/17 03/24/20 History release atenolol 50 mg tablet 50 mg PO HS 05/21/17 03/24/20 History cyanocobalamin (vitamin B-12) 2,500 mcg PO DAILY tab 05/21/17 03/24/20 History 1,000 mcg tablet furosemide 20 mg tablet 20 mg PO BID tab 05/21/17 03/24/20 History gabapentin 300 mg capsule 300 mg PO QID cap 05/21/17 03/24/20 History hydrocodone 10 mg-acetaminophen 1 tab PO QIDP PRN 05/21/17 03/24/20 History 325 mg tablet lisinopril 20 mg tablet 20 mg PO DAILY 05/21/17 03/24/20 History potassium chloride 10 mEq 10 meq PO DAILY 90 Days #90 11/12/17 03/24/20 History tablet,extended release(part/cryst) Apixaban [Eliquis 2.5mg tab] 2.5 mg PO BID 03/24/20 03/24/20 History dexAMETHasone [Decadron] 4 mg PO BID 03/24/20 03/24/20 History Height: 1.52 m Weight: 93.043 kg Laboratory Results:: Laboratory Results - last 24 hr 03/24/20 14:46: VBG pH 7.36, VBG pCO2 76.2 H, VBG pO2 44.1 H, VBG HCO3 42.2 H, VBG Total CO2 44.5 H, VBG O2 Saturation 78.8 H, VBG Base Excess 16.7 H 03/24/20 14:50: WBC 16.6 H, RBC 5.00, Hgb 13.0, Hct 41.0, MCV 81.9, MCH 26.0 L, MCHC 31.7 L, RDW 15.4, Plt Count 216, MPV 10.4, Neut % (Auto) 87.3 H, Lymph % (Auto) 3.5 L, [place] % (Auto) 6.9, Eos % (Auto) 1.1, Baso % (Auto) 1.2, Neut # (Auto) 14.5 H, Lymph # (Auto) 0.6 L, [place] # (Auto) 1.2 H, Eos # (Auto) 0.2, Baso # (Auto) 0.2, Total Counted 100, Neutrophils % (Manual) 83 H, Band Neutrophils % 1.0, Lymphocytes % (Manual) 2 L, Monocytes % (Manual) 9, Eosinophils % (Manual) 2, Metamyelocytes % 3.0 H, Platelet Estimate Normal, Hypochromasia 1+, Stomatocytes 1+ 03/24/20 14:50: D-Dimer 1.37 03/24/20 14:50: Sodium 133 L, Potassium 2.7 L*, Chloride 83 L, Carbon Dioxide 45 H*, Anion Gap 7.7, BUN 47 H, Creatinine 1.40 H, Estimated Creat Clear 47, Estimated GFR 36 L, Est GFR ( Amer) 43 L, Glucose 110 H, Calcium 8.3 L, Ferritin 109, Total Bilirubin 0.7, AST 29, ALT 40, Alkaline Phosphatase 100, Troponin I 0.11 H, C-Reactive Protein 66.2 H, Total Protein 6.1 L, Albumin 3.3 L, Globulin 2.8, Albumin/Globulin Ratio 1.2 03/24/20 14:50: SARS-CoV-2 IgG Ab (Rapid) Negative, SARS-CoV-2 IgM Ab (Rapid) Positive A 03/24/20 14:51: Lactate 1.5 03/24/20 16:26: Chlamy pneumoniae PCR Not detected, Adenovirus (PCR) Not detected, B. pertussis DNA (PCR) Not detected, Coronavirus OC43 (PCR) Not detected, Coronavirus HKU1 (PCR) Not detected, Coronavirus 229E (PCR) Not detected, SARS-CoV-2 (PCR) Detected A, Coronavirus NL63 (PCR) Not detected, Human Metapneumovir PCR Not detected, Influenza A (H1) PCR Not detected, Influ A (H1N1/09) PCR Not detected, Influenza A (H3) PCR Not detected, Influenza Type A (PCR) Not detected, Influenza Type B (PCR) Not detected, M. pneumoniae (PCR) Not detected, Parainfluenza 1 (PCR) Not detected, Parainfluenza 2 (PCR) Not detected, Parainfluenza 3 (PCR) Not detected, Parainfluenza 4 (PCR) Not detected, RSV (PCR) Not detected, Entero/Rhino (PCR) Not detected 03/24/20 18:08: Troponin I 0.10 H 03/25/20 06:00: WBC 11.6 H D, RBC 4.60, Hgb 11.5 L D, Hct 39.9, MCV 86.8, MCH 25.0 L, MCHC 28.8 L, RDW 15.3, Plt Count 150 D, MPV 12.1 H, Neut % (Auto) 82.8 H, Lymph % (Auto) 4.6 L, [place] % (Auto) 10.7 H, Eos % (Auto) 1.5, Baso % (Auto) 0.4, Neut # (Auto) 9.6 H, Lymph # (Auto) 0.5 L, [place] # (Auto) 1.2 H, Eos # (Auto) 0.2, Baso # (Auto) 0.1 03/25/20 06:00: Sodium 136, Potassium 2.8 L*, Chloride 90 L, Carbon Dioxide 39 H, Anion Gap 9.8, BUN 36 H, Creatinine 1.20 H, Estimated Creat Clear 50, Estimated GFR 43 L, Est GFR ( Amer) 52 L D, Glucose 79 D, Calcium 8.2 L Medical History: Reports:: Hyperlipi
--- NOTE | 2020-03-25 11:22 | HMH.PHAINT ---
MEDICATION RECONCILIATION COMPLETED ON PATIENT USING EXTERNAL FILL HISTORY FROM PHARMACY AND DISCHARGE SUMMARY FROM PREVIOUS ADMISSION. -YAIMA GRAYD
--- NOTE | 2020-03-25 18:11 | PC.NURSE ---
RN gave cup tp pt for SPT at this time.
--- NOTE | 2020-03-25 19:08 | PC.NURSE ---
PATIENT IS A&O X3, LUNGS DIMINISHED, PULSES EQUAL. PATIENT TOLERATED MEALS WELL. PATIENT REFUSED TO REMAIN COVERED WHILE IN ROOM. PATIENT SLEPT ON AND OFF DURING THIS RN SHIFT. THERE ARE NO NEW CONCERNS AT THIS TIME.
[2020-03-26] VITALS: BP 137/61; PULSE 90; RESP 18; TEMP 36.9; O2SAT 95
[2020-03-26 04:00] VITALS: BP 148/62; PULSE 90; RESP 16; TEMP 36.4; O2SAT 92
--- NOTE | 2020-03-26 04:35 | PC.NURSE ---
Remains on 2 L O2 per nasal cannula. A&O x4. Has rested well this shift. Medicated w/ PRN norco for chronic back pain at beginning of shift. Pt has been incontinent of bladder this shift. Pt much weaker this shift when assisted to BSC than previous night, pt up once. Urine noted to be clear and dougie in color, w/ a foul odor. No BM this shift. Bed bath and linens changed this shift. Requires total care. IS at bedside, educated pt on use. Pt will need reinforcement and encouragement throughout shift. IS @ best = 500. Sputum cup is at bedside. Teds taken off this shift per pt's request. Bed alarm in place. Call [facility] w/in reach.
[2020-03-26 05:00] VITALS: BMI 40.1
[2020-03-26 07:04] LABS: Basophils # 0.1 K/mm3 (0-0.2); Basophils % 0.6 % (0.1-2.0); Eosinophils # 0.1 K/mm3 (0.0-0.4); Eosinophils % 0.3 % (0.1-12.0); Hematocrit 36.9 % (37.0-47.0); Hemoglobin 11.3 g/dL (12.2-16.2); Lymphocytes # 0.4 K/mm3 (0.7-4.5); Lymphocytes % 2.1 % (10-50); Mean Corpuscular HGB Conc 30.7 g/dL (31.8-35.4); Mean Corpuscular Hemoglobin 25.3 pg (27.0-31.2); Mean Corpuscular Volume 82.5 fl (81-99); Mean Platelet Volume 11.8 fl (7.4-10.4); Monocytes # 1.5 K/mm3 (0.1-1.0); Neutrophils # 14.9 K/mm3 (1.8-7.8); Neutrophils % 88.1 % (37.0-80.0); Platelet Count 144 K/mm3 (142-424); Red Blood Count 4.47 M/mm3 (4.20-5.40); Red Cell Distribution Width 15.8 % (11.5-17.5); White Blood Count 16.9 K/mm3 (4.8-10.8)
[2020-03-26 07:08] LABS: MANUAL DIFFERENTIAL MANUAL DIFFERENTIAL (MANUAL DIFF)
--- NOTE | 2020-03-26 07:08 | P.PN_ITS ---
Internal Medicine - PN: Subj *Date: 03/26/20 *Time: 07:08 Exam Vital signs and Labs for Last 24 Hours: Temp Pulse Resp BP Pulse Ox 97.5 F L 90 16 148/62 H 92 L 03/26/20 04:00 03/26/20 04:00 03/26/20 04:00 03/26/20 04:00 03/26/20 04:00 Laboratory Results - last 24 hr 03/25/20 06:00: WBC 11.6 H D, RBC 4.60, Hgb 11.5 L D, Hct 39.9, MCV 86.8, MCH 25.0 L, MCHC 28.8 L, RDW 15.3, Plt Count 150 D, MPV 12.1 H, Neut % (Auto) 82.8 H, Lymph % (Auto) 4.6 L, [place] % (Auto) 10.7 H, Eos % (Auto) 1.5, Baso % (Auto) 0.4, Neut # (Auto) 9.6 H, Lymph # (Auto) 0.5 L, [place] # (Auto) 1.2 H, Eos # (Auto) 0.2, Baso # (Auto) 0.1 03/25/20 06:00: Sodium 136, Potassium 2.8 L*, Chloride 90 L, Carbon Dioxide 39 H , Anion Gap 9.8, BUN 36 H, Creatinine 1.20 H, Estimated Creat Clear 50, Estimated GFR 43 L, Est GFR ( Amer) 52 L D, Glucose 79 D, Calcium 8.2 L 03/26/20 06:01: WBC 16.9 H D, RBC 4.47, Hgb 11.3 L, Hct 36.9 L, MCV 82.5, MCH 25.3 L, MCHC 30.7 L, RDW 15.8, Plt Count 144, MPV 11.8 H, Neut % (Auto) 88.1 H, Lymph % (Auto) 2.1 L, [place] % (Auto) 9.0, Eos % (Auto) 0.3, Baso % (Auto) 0.6, Neut # (Auto) 14.9 H, Lymph # (Auto) 0.4 L, [place] # (Auto) 1.5 H, Eos # (Auto) 0.1, Baso # (Auto) 0.1 I & O for Last 24 hours: Intake & Output 03/23/20 03/24/20 03/25/20 03/26/20 23:59 23:59 23:59 23:59 Intake Total 1652 / 1652 Output Total 400 / 600 200 / 200 Balance 1252 / 1052 -200 / -200 Weight 94.149 kg 93.043 kg 93.185 kg Assessment and Plan (1) Hypokalemia Status: Acute Category: Medical Code(s): E87.6 - Hypokalemia (2) COVID-19 Status: Acute Category: Medical Code(s): U07.1 - COVID-19 (3) Hospital-acquired pneumonia Status: Acute Category: Medical Code(s): J18.9 - Pneumonia, unspecified organism; Y95 - Nosocomial condition (4) Bilateral lower extremity edema Status: Acute Category: Medical Code(s): R60.0 - Localized edema
[2020-03-26 07:10] LABS: Anion Gap 6.4 mEq/L (5-15); Blood Urea Nitrogen 36 mg/dl (7-17); Calcium 8.4 mg/dl (8.4-10.2); Carbon Dioxide 37 mmol/L (22.0-30.0); Chloride 94 mmol/L (98-107); Creatinine Clearance Estimated 47 mL/min (50-200); Estimated Glomerular Filt Rate 39 ml/min (>60); GFR (African American) 47 ML/MIN (>60); Glucose 113 mg/dl (74-100); Potassium 3.4 mmoL/L (3.5-5.1); Sodium 134 mmol/L (136-145)
[2020-03-26 07:28] LABS: Hypochromasia 2+; Lymphocytes % 3 % (10-50); Monocytes % 9 % (2-9); Neutrophils % 87 % (42-76); Platelet Estimate Slight Decrease; Total Cells Counted 100
[2020-03-26 07:53] LABS: POC Glucose,Bedside 73 (70-110)
[2020-03-26 07:53] LABS: POC Glucose,Bedside 92 (70-110)
[2020-03-26 07:54] LABS: POC Glucose,Bedside 113 (70-110)
[2020-03-26 07:54] LABS: POC Glucose,Bedside 141 (70-110)
[2020-03-26 07:54] LABS: POC Glucose,Bedside 162 (70-110)
[2020-03-26 07:54] LABS: POC Glucose,Bedside 75 (70-110)
[2020-03-26 08:00] VITALS: BP 112/74; PULSE 85; RESP 18; TEMP 36.6
--- NOTE | 2020-03-26 11:08 | SW/DCPLANNER ---
RECEIVED REFERRAL FOR HOME HEALTH PT/OT PRISON AND MED MANAGEMENT.... PATIENT IS ALREADY ESTABLISHED WITH [facility]....I HAVE SPOKEN WITH HER SON AND DAUGHTER BOTH AND THEY WANT HER TO RETURN HOME.. HOME HEALTH WILL BE CALLING TO RESUME SERVICES SOON POSSIBLE...
[2020-03-26 11:39] LABS: POC Glucose,Bedside 138 (70-110)
[2020-03-26 12:00] VITALS: BP 106/57; PULSE 86; RESP 86; TEMP 36.6; O2SAT 94
--- NOTE | 2020-03-26 12:01 | HMH.DCSUM ---
General - General Admission date:: 03/24/20 Discharge date: 03/26/20 HPI HPI: In summary this is an 84-year-old female, recent Covid positive, presenting to the emergency department with lethargy. Patient is somewhat fatigued on arrival. Her vital signs are stable. Hypertensive. Differential diagnoses include worsening Covid pneumonia, hyper inflammatory syndrome, renal insufficiency, dehydration, urinary tract infection, ACS. Plan to obtain CBC, CMP, chest x-ray, EKG, troponin profile, D-dimer, ferritin, CRP I reviewed patient's medical record. She was discharged from our hospital on March 17, 2020. At that time she was discharged home on low-dose Eliquis, Lasix, steroids. Initial laboratory results remarkable for elevated white count at 16 K. X-ray shows low lung volumes and airspace opacities in the lower lobes, worse on the right. Concern for fluid, given patient's history of heart failure. Also concern for persistent pneumonia. Labs show hypokalemia with potassium of 2.7. Patient given IV potassium repletion. Case discussed with Dr. Hoyos. We will treat her for hospital-acquired pneumonia. Given vancomycin, cefepime, Levaquin. Continue IV fluids with 50 mL/h of LR. Family does not want to pursue aggressive management. They do not want BiPAP. They do not want intubation or chest compressions. Will focus on her treatment and comfort. Per ER, agree with presentation and plan. Hospital Course Hospital Course: Ms. Garcia was admitted with continued fatigue and respiratory distress from her COVID-19 pneumonia. Not have concern for community-acquired pneumonia. Started on antibiotics. Tolerated antibiotics well and fluid repletion. Remained hemodynamically stable with stable oxygen requirement during admission. As patient was essentially at her baseline, tolerating oral medications, and meeting nutrition goals, medically stable for discharge back to the care of her family. Discussed placement options however family was adamant about taking her home. Discharged home in no acute distress. Denies nausea, chest pain, confusion, shortness of breath beyond baseline. Up with us as previously scheduled in the outpatient setting. Further management at that time Objective Vital signs: Temp Pulse Resp BP Pulse Ox 97.9 F 85 18 112/74 92 L 03/26/20 08:00 03/26/20 08:00 03/26/20 08:00 03/26/20 08:00 03/26/20 04:00 Narrative: Pleasant, awake and alert, oriented x2; comfortable sitting up in bed. topless as she keeps pulling her covers off and does not want to wear a gown. - *Routine HEENT Exam Head: Present: normocephalic Eye: Present: EOMI, PERRL ENT: Present: mucous membranes moist - *Routine Neck Exam Present: supple. Absent: lymphadenopathy - *Routine Respiratory Exam Present: rhonchi with interval improvement, no Wheeze - *Routine Cardiovascular Exam Present: RRR - *Routine Abdominal Exam Present: soft, normoactive bowel sounds. Absent: tenderness - *Routine Extremities Exam Absent: cyanosis, clubbing, edema - *Routine Skin Exam Present: warm. Absent: rash - *Routine Neurological Exam Present: alert, oriented X2 Results Labs on day of discharge: Labs from last 24 hours 03/26/20 03/26/20 03/26/20 11:28 06:01 06:01 WBC 16.9 H D RBC 4.47 Hgb 11.3 L Hct 36.9 L MCV 82.5 MCH 25.3 L MCHC 30.7 L RDW 15.8 Plt Count 144 MPV 11.8 H Neut % (Auto) 88.1 H Lymph % (Auto) 2.1 L [place] % (Auto) 9.0 Eos % (Auto) 0.3 Baso % (Auto) 0.6 Neut # (Auto) 14.9 H Lymph # (Auto) 0.4 L [place] # (Auto) 1.5 H Eos # (Auto) 0.1 Baso # (Auto) 0.1 Total Counted 100 Neutrophils % (Manual) 87 H Band Neutrophils % 1.0 Lymphocytes % (Manual) 3 L Monocytes % (Manual) 9 Platelet Estimate Slight decrease Hypochromasia 2+ Sodium 134 L Potassium 3.4 L D Chloride 94 L Carbon Dioxide 37
--- NOTE | 2020-03-26 12:10 | HMH.PTEV ---
Physical Therapy Evaluation Rehab PT IP Evaluation Start: 03/26/20 10:56 Freq: ONCE Status: Active Protocol: Document 03/26/20 12:06 PHORNE (Rec: 03/26/20 12:09 PHORNE [id number]) Subjective/History History History 84 yowf adm to [facility] for PNA after prior hospital d/c 03/17 (COVID+). She reports she feels better this am and lives alone with 1 step to enter the home. Subjective Subjective Pt reports she feels better today and would like to return home soon. Rehab PT IP Eval Objective Appearance Patient Behavior Appropriate Patient Orientation Person,Place,Time Difficulty following instructions none Speech Pattern Clear Ambulation Patient Able to Ambulate Yes Ambulation Observation IP General Gait Pattern Observation Wide Based Gait,Shuffling Step Ambulation Distance (feet) 3 Ambulation Assistive Device None Ambulation Ability Minimal x 1 (25% assist) Balance Ability to Arise Able, uses arms to help Sitting Balance Steady, safe Standing Balance Steady, wide stance Dynamic Sitting Balance Ability Good Dynamic Standing Balance Ability Fair Transfers Bed Transfer Ability Minimal x 1 (25% assist) Chair Transfer Ability Minimal x 1 (25% assist) Sit to Stand Bed Transfer Ability Minimal x 1 (25% assist) Sit to Stand Chair Transfer Ability Minimal x 1 (25% assist) ROM All Extremities PT ROM Status WFL MMT All Extremities PT MMT WFL Rehab PT IP prob,goals,plan Problems Date of Evaluation: 03/26/20 PT IP Problems Bed Mobility,Transfers,Gait Rehab Potential Rehab Potential Good Plan PT Intervention Plan Bed Mobility,Transfers,Gait, Therapeutic Exercise PT Plan Frequency BID Duration LOS Discharge Goals Bed Transfer Ability Contact Guard/Hand Hold Sit to Stand Chair Transfer Ability Contact Guard/Hand Hold Ambulation Assistive Device Straight Cane Ambulation Distance (feet) 10 Discharge Plan PT Discharge Plan Pt is appropriate to return home once medically stable with family assist. G -code Required No Eval Complexity Eval Charge Codes 65410 - Moderate Complexity PHYSICIAN CERTIFICATION: I certify the specified therapy services for Karla Garcia are required, authorized, and reviewed every 30 days.
--- NOTE | 2020-03-26 14:57 | PC.NURSE ---
THIS RN PROVIDED D/C INSTRUCTIONS TO PATIENT AND MEDICATION D/C INSTRUCTIONS TO PATIENT'S DAUGHTER. PATIENT A&O X3, LUNGS WERE DIMINISHED, PULSES EQUAL. PATIENT UP TO CHAIR FOR LUNCH, TOLERATED WELL. THIS RN ASSISTED PATIENT INTO WHEELCHAIR AND VEHICLE. PATIENT TOLERATED WELL. NO OTHER CONCERNS AT THIS TIME.
== END 2020-03-26 14:47 | disposition home health service (06) | DRG 177 ==
LOC: ER 17:39 → ICU 03-25 09:31
PROVIDERS: Admitting Provider Internal Medicine Adolescent Medicine; Emergency Provider Emergency Medicine; PCP Internal Medicine Adolescent Medicine; Visit Provider Internal Medicine Adolescent Medicine
DX: U07.1 COVID-19 (principal); J12.82 Pneumonia due to coronavirus disease 2019; E87.6 Hypokalemia; I11.0 Hypertensive heart disease with heart failure; I50.9 Heart failure, unspecified; E78.5 Hyperlipidemia, unspecified; Z79.01 Long term (current) use of anticoagulants; Z79.82 Long term (current) use of aspirin; Z79.899 Other long term (current) drug therapy
CPT/HCPCS: 71045; 80048; 80053; 82728; 82803; 82962; 83605; 84484; 85007; 85025; 85378; 86140; 86328; 87040; 87581; 87633; 87798; 94761; 96365; 96366; 96367; 97162; 99285; J1956; J3370; U0003

== ENCOUNTER → 2020-04-19 14:27 | Outpatient (CLI) | payer MEDICARE, SELFPAY ==
[2020-04-19 14:56] LABS: Basophils # 0.1 K/mm3 (0-0.2); Basophils % 0.8 % (0.1-2.0); Eosinophils # 0.2 K/mm3 (0.0-0.4); Eosinophils % 2.7 % (0.1-12.0); Hematocrit 43.5 % (37.0-47.0); Hemoglobin 13.2 g/dL (12.2-16.2); Lymphocytes # 1.3 K/mm3 (0.7-4.5); Mean Corpuscular HGB Conc 30.3 g/dL (31.8-35.4); Mean Corpuscular Hemoglobin 25.7 pg (27.0-31.2); Mean Corpuscular Volume 84.8 fl (81-99); Mean Platelet Volume 9.8 fl (7.4-10.4); Monocytes # 0.7 K/mm3 (0.1-1.0); Monocytes % 9.1 % (1.7-9.3); Neutrophils # 5.1 K/mm3 (1.8-7.8); Neutrophils % 69.5 % (37.0-80.0); Platelet Count 277 K/mm3 (142-424); Red Blood Count 5.13 M/mm3 (4.20-5.40); Red Cell Distribution Width 18.2 % (11.5-17.5); White Blood Count 7.3 K/mm3 (4.8-10.8)
[2020-04-19 15:29] LABS: Alanine Aminotransferase 11 U/L (12-78); Albumin Level 3.5 g/dl (3.5-5.0); Albumin/Globulin Ratio 1.1 (1.1-1.8); Alkaline Phosphatase 160 U/L (38-126); Anion Gap 8.5 mEq/L (5-15); Aspartate Amino Transferase 24 U/L (14-36); Bilirubin,Total 0.3 mg/dl (0.2-1.3); Blood Urea Nitrogen 14 mg/dl (7-17); Calcium 9.3 mg/dl (8.4-10.2); Carbon Dioxide 32 mmol/L (22.0-30.0); Chloride 100 mmol/L (98-107); Estimated Glomerular Filt Rate 60 ml/min (>60); GFR (African American) 72 ML/MIN (>60); Globulin 3.3 g/dL (1.3-3.2); Glucose 133 mg/dl (74-100); Potassium 4.5 mmoL/L (3.5-5.1); Sodium 136 mmol/L (136-145); Total Protein,Serum 6.8 g/dl (6.3-8.2)
== END ==
LOC: LAB 14:27 → LAB.DROPOF 14:31
PROVIDERS: Visit Provider Internal Medicine Adolescent Medicine
DX: I50.43 Acute on chronic combined systolic (congestive) and diastolic (congestive) heart failure (principal)
CPT/HCPCS: 80053; 85025

== ENCOUNTER 2020-05-15 19:22 | Inpatient (IN) | payer MEDICARE, SELFPAY ==
[2020-05-15] VITALS (9 sets, daily range): BP systolic 95–142; BP diastolic 42–102; PULSE 69–94; RESP 15–19; TEMP 38.3; O2SAT 89–99; BMI 39.0
--- NOTE | 2020-05-15 19:37 | XR_ITS ---
PROCEDURE: XR CHEST PORTABLE CLINICAL HISTORY: fever COMPARISON: CT CT CHEST WO CON from 03/12/2020 CR XR CHEST PORTABLE from 03/12/2020 CR XR CHEST PORTABLE from 03/14/2020 CR XR CHEST PORTABLE from 03/24/2020 FINDINGS: There is mild cardiomegaly without failure. Chronic changes are present. No lobar consolidation or collapse. No acute bony abnormalities. IMPRESSION: Cardiomegaly otherwise negative Dictated by: Uriel Posada MD 05/16/2020 07:04 Uriel Posada MD in [place] 05/16/2020 07:04
--- NOTE | 2020-05-15 19:37 | CT_ITS ---
PROCEDURE: CT HEAD/BRAIN WO CON CLINICAL INDICATION: reported altered mental status x 2 days Altered mental status, altered level of consciousness, confusion, disorientation and memory loss COMPARISON: CT CT HEAD/BRAIN WO CON from 03/12/2020 TECHNIQUE: Axial images obtained. All CT scans at the facility use one or more dose reduction, viz: automated exposure control, ma/kV adjustment per patient size (including targeted exams where dose is matched to indication, i.e. head), or iterative reconstruction technique. FINDINGS: No midline shift, mass effect, intracranial hemorrhage, hydrocephalus, or extra-axial fluid collection is evident. There is generalized atrophy with hypoattenuation of the periventricular white matter consistent with microangiopathic changes. The calvarium has an unremarkable appearance. No mastoid effusion. No sinus air-fluid level. IMPRESSION: No acute intracranial finding Dictated by: Uriel Posada MD 05/16/2020 08:44 Uriel Posada MD in [place] 05/16/2020 08:44
[2020-05-15 19:53] LABS: Microscopic, Urine URINE MICROSCOPIC (MICROSCOPIC)
[2020-05-15 19:55] LABS: Basophils # 0.1 K/mm3 (0-0.2); Basophils % 0.5 % (0.1-2.0); Eosinophils # 0.3 K/mm3 (0.0-0.4); Hematocrit 38.7 % (37.0-47.0); Hemoglobin 12.1 g/dL (12.2-16.2); Lymphocytes # 1.4 K/mm3 (0.7-4.5); Lymphocytes % 10.9 % (10-50); Mean Corpuscular HGB Conc 31.2 g/dL (31.8-35.4); Mean Corpuscular Hemoglobin 25.8 pg (27.0-31.2); Mean Corpuscular Volume 82.8 fl (81-99); Mean Platelet Volume 9.9 fl (7.4-10.4); Monocytes # 0.7 K/mm3 (0.1-1.0); Monocytes % 5.3 % (1.7-9.3); Neutrophils # 10.6 K/mm3 (1.8-7.8); Neutrophils % 81.2 % (37.0-80.0); Platelet Count 247 K/mm3 (142-424); Red Blood Count 4.67 M/mm3 (4.20-5.40); Red Cell Distribution Width 18.3 % (11.5-17.5); White Blood Count 13.1 K/mm3 (4.8-10.8)
[2020-05-15 19:55] LABS: Adenovirus,PCR Not Detected (NotDetected); Bordetella Pertussis Not Detected (NotDetected); Chlamydophila Pneumoniae, PCR Not Detected (NotDetected); Coronavirus 19, PCR Not Detected (NotDetected); Coronavirus 229E Not Detected (NotDetected); Coronavirus NL63 Not Detected (NotDetected); Coronavirus OC43 Not Detected (NotDetected); Coronovirus HKU1,PCR Not Detected (NotDetected); Human Metapneumovirus Not Detected (NotDetected); Influenza A, PCR Not Detected (NotDetected); Influenza AH1, 2009 Not Detected (NotDetected); Influenza AH1, PCR Not Detected (NotDetected); Influenza AH3,PCR Not Detected (NotDetected); Influenza B, PCR Not Detected (NotDetected); Mycoplasma Pneumoniae, PCR Not Detected (NotDetected); Parainfluenza 1, PCR Not Detected (NotDetected); Parainfluenza 2, PCR Not Detected (NotDetected); Parainfluenza 3, PCR Not Detected (NotDetected); Parainfluenza 4, PCR Not Detected (NotDetected); Respiratory Syncytial Virus Not Detected (NotDetected); Rhinovirus/Enterovirus Not Detected (NotDetected)
[2020-05-15 19:57] LABS: ABG Base Excess -5.7 mmol/L (-2.4-2.3); ABG HCO3 20.8 mmhg (22.0-26.0); ABG Oxygen Saturation 96 % (90-100); ABG PCO2 43.7 mmhg (35.0-45.0); ABG PO2 82.9 mmhg (80-100); ABG TCO2 22.1 mmhg (23-27); Allen's Test Y; Oxygen 2 %
[2020-05-15 19:58] LABS: Source R/R
[2020-05-15 20:07] LABS: Appearance,Urine CLEAR (Clear); Bilirubin,Urine Negative (Negative); Blood, Urine Negative (Negative); Color,Urine YELLOW (Yellow); Glucose,Urine (UA) Negative (Negative); Ketones,Urine Negative (Negative); Leukocyte Esterase,Urine Negative (Negative); Nitrate,Urine Negative (Negative); PH,Urine 5.5 (5.0-8.5); Protein,Urine Negative (Negative); Urobilinogen,Urine 0.2 EU/dl (0.2)
[2020-05-15 20:16] LABS: WBC,Urine Occasional #/hpf (0-3)
[2020-05-15 20:17] LABS: Mucus,Urine Trace /lpf
[2020-05-15 20:23] LABS: Erythrocyte Sedimentation Rate 31 mm/hr (0-30)
--- NOTE | 2020-05-15 20:24 | ECG_ITS ---
APPROVED REPORT Exam: Resting ECG HR:98 bpm ECG Measurements Heart Rate 98 AXES MI 160 P 21 QRSd 98 QRS -47 QT 320 T 50 QTc 408 Conclusion Normal sinus rhythm Left axis deviation Possible Anterolateral infarct, age undetermined Abnormal ECG Electronically signed by : Per Hoyos, 05/16/2020 11:46:42
[2020-05-15 20:31] LABS: Alanine Aminotransferase 14 U/L (12-78); Albumin Level 3.9 g/dl (3.5-5.0); Alkaline Phosphatase 182 U/L (38-126); Anion Gap 15.2 mEq/L (5-15); Aspartate Amino Transferase 21 U/L (14-36); Bilirubin,Direct 0.1 mg/dl (0.0-0.4); Bilirubin,Indirect 0.4 mg/dL (0.0-0.9); Bilirubin,Total 0.5 mg/dl (0.2-1.3); Bilirubin,Unconjugated 0.4 mg/dL (0.0-1.1); Blood Urea Nitrogen 61 mg/dl (7-17); Calcium 9.8 mg/dl (8.4-10.2); Carbon Dioxide 24 mmol/L (22.0-30.0); Chloride 104 mmol/L (98-107); Creatinine Clearance Estimated 33 mL/min (50-200); Estimated Glomerular Filt Rate 27 ml/min (>60); GFR (African American) 32 ML/MIN (>60); Glucose 122 mg/dl (74-100); Sodium 136 mmol/L (136-145); Total Protein,Serum 7.5 g/dl (6.3-8.2)
[2020-05-15 20:41] LABS: Potassium 7.2 mmoL/L (3.5-5.1)
[2020-05-15 23:32] LABS: Potassium 6.8 mmoL/L (3.5-5.1)
[2020-05-16] VITALS (9 sets, daily range): BP systolic 95–144; BP diastolic 45–64; PULSE 68–90; RESP 16–19; TEMP 36.3–36.9; O2SAT 92–98; BMI 39.6; BMI 39.9
--- NOTE | 2020-05-16 00:11 | PC.NURSE ---
paged dr ruiz/covering for dr philippe. 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 me returned call.
--- NOTE | 2020-05-16 00:14 | PC.NURSE ---
call placed to house for bed assignment for patient. dx: evette, sepsis; sara-besson, acute
--- NOTE | 2020-05-16 00:16 | HMH.EDGENADL ---
ED Disposition Clinical Impression: Acute kidney injury, Hyperkalemia Sepsis Qualifiers: Sepsis type: sepsis due to unspecified organism Sepsis acute organ dysfunction status: unspecified Qualified Code(s): A41.9 - Sepsis, unspecified organism Disposition: Admitted As Inpatient Condition on Discharge: Good - Critical Care Critical Care Time: No Attestation: On 05/15/20, the high probability of a clinically significant, sudden or life threatening deterioration of the following system(s) required my full and direct attention, intervention and personal management. The time I documented below is in addition to time spent performing reported procedures but includes the following listed in this critical care notation. management of hyperkalemia, providing medications, reassessment, monitoring, repeat labs. Total Critical Care Time: 30 Vital system(s) involved:: Renal Failure, Shock (Septic) My critical care processes included: Assessment & monitoring of V/S, Initial and Re-exams, Data Review/Interpretation, Coordinating Care, Medication Orders and management, Documentation Medical Decision Making - Medical Records Medical records reviewed: Yes: I reviewed the patient's medical records. - Elie Inquiry Pt receiving controlled substance: No Vital Signs: 05/15/20 19:32 05/15/20 20:02 05/15/20 20:08 Temperature 101.0 F H Temperature Source Rectal Pulse Rate 77 Pulse Rate [Right Brachial] 85 82 Respiratory Rate 18 19 Blood Pressure [Right Arm] 142/102 H 95/68 L Blood Pressure Mean [Right Arm] 115 77 Blood Pressure Source [Right Arm] Automatic Cuff Automatic Cuff Blood Pressure Position [Right Arm] Sitting Sitting 02 Sat by Pulse Oximetry 89 L 97 Oxygen Delivery Method Room Air Nasal Cannula Oxygen Flow Rate (LPM) 2 05/15/20 20:25 Temperature Temperature Source Pulse Rate Pulse Rate [Right Brachial] 85 Respiratory Rate 15 Blood Pressure [Right Arm] 97/60 L Blood Pressure Mean [Right Arm] 72 Blood Pressure Source [Right Arm] Automatic Cuff Blood Pressure Position [Right Arm] 02 Sat by Pulse Oximetry 97 Oxygen Delivery Method Nasal Cannula Oxygen Flow Rate (LPM) 2 - Lab Data Lab Results 05/15/20 19:15: Urine Color Yellow, Urine Appearance Clear, Urine pH 5.5, Ur Specific [place] 1.020, Urine Protein Negative, Urine Glucose (UA) Negative, Urine Ketones Negative, Urine Blood Negative, Urine Nitrate Negative, Urine Bilirubin Negative, Urine Urobilinogen 0.2, Ur Leukocyte Esterase Negative, Urine WBC Occasional, Urine Mucus Trace 05/15/20 19:15: WBC 13.1 H, RBC 4.67, Hgb 12.1 L, Hct 38.7, MCV 82.8, MCH 25.8 L, MCHC 31.2 L, RDW 18.3 H, Plt Count 247, MPV 9.9, Neut % (Auto) 81.2 H, Lymph % (Auto) 10.9, [place] % (Auto) 5.3, Eos % (Auto) 2.0, Baso % (Auto) 0.5, Neut # (Auto) 10.6 H, Lymph # (Auto) 1.4, [place] # (Auto) 0.7, Eos # (Auto) 0.3, Baso # (Auto) 0.1, ESR 31 H 05/15/20 19:15: Sodium 136, Potassium 7.2 H*, Chloride 104, Carbon Dioxide 24, Anion Gap 15.2 H, BUN 61 H, Creatinine 1.80 H, Estimated Creat Clear 33, Estimated GFR 27 L, Est GFR ( Amer) 32 L, Glucose 122 H, Calcium 9.8, Total Bilirubin 0.5, Direct Bilirubin 0.1, Conjugated Bilirubin 0.0, Indirect Bilirubin 0.4, Unconjugated Bilirubin 0.4, AST 21, ALT 14, Alkaline Phosphatase 182 H, C-Reactive Protein 25.0 H, Total Protein 7.5, Albumin 3.9, Procalcitonin 0.080 05/15/20 19:15: Lactate 1.0 05/15/20 19:48: Chlamy pneumoniae PCR Not detected, Adenovirus (PCR) Not detected, B. pertussis DNA (PCR) Not detected, Coronavirus OC43 (PCR) Not detected, Coronavirus HKU1 (PCR) Not detected, Coronavirus 229E (PCR) Not detected, SARS-CoV-2 (PCR) Not detected, Coronavirus NL63 (PCR) Not detected, Human Metapneumovir PCR Not detected, Influenza A (H1) PCR Not detected, Influ A (H1N1/09) PCR Not detected, Influenza A (H3) PCR Not detected, Influenza Type A (PCR) Not detected, Influenza Type B (PCR) Not detected, M. pneumoniae (PCR) Not detected, Parainfluenza 1 (PCR)
--- NOTE | 2020-05-16 01:01 | PC.NURSE ---
PT ARRIVED TO FLOOR VIA STRETCHER FROM ED WITH STAFF AT 0100.
[2020-05-16 01:49] LABS: POC Glucose,Bedside 127 (70-110)
[2020-05-16 07:55] LABS: Chloride 106 mmol/L (98-107); Sodium 134 mmol/L (136-145)
[2020-05-16 07:58] LABS: Blood Urea Nitrogen 49 mg/dl (7-17); Calcium 9.1 mg/dl (8.4-10.2); Carbon Dioxide 25 mmol/L (22.0-30.0); Creatinine Clearance Estimated 50 mL/min (50-200); Estimated Glomerular Filt Rate 43 ml/min (>60); GFR (African American) 52 ML/MIN (>60); Glucose 96 mg/dl (74-100)
--- NOTE | 2020-05-16 08:09 | PC.NURSE ---
THIS RN WAS UNABLE TO COMPLETE MED REC DUE TO PATIENT STATING THAT SHE DOES NOT KNOW WHAT MEDICATION SHE TAKES
--- NOTE | 2020-05-16 08:15 | HMH.HP ---
*Admission Date: 05/16/20 *Chief complaint: AMS, Sepsis *History of present illness: In summary is an 84-year-old female presenting for encephalopathy and fever. Family brought her to the ER yesterday due to onset of confusion and fever at home. On arrival to the ER she was alert and oriented, had no signs of trauma, and no focal neurologic findings. Because of her encephalopathy a CT of her head was ordered that was found to be negative. Infectious work-up initiated and fluids given. Patient infectious work-up was significant for no urinary tract infection, chest x-ray demonstrated possible opacities in bilateral chest, ER was concern for Covid, swab was negative. Of note her labs were significant for acute kidney injury with baseline creatinine 0.9, now 1.8, patient's potassium is 7.2, EKG did not demonstrate any QT prolongation or signs of hyperkalemia on findings. Patient received calcium, insulin, glucose and furosemide. Patient made 2 L of urine on repeat assessment, repeat potassium level was 6.8, as patient did not require emergent hemodialysis at this time, patient was admitted to medicine for further management of hyperkalemia, acute kidney injury, and concern for sepsis given her fever, white cell count, oxygen requirement/tachypnea, and presumed respiratory infection. Started on broad-spectrum antibiotics for healthcare acquired pneumonia given recent admission. On morning assessment, she was alert and oriented sitting on bedside commode. Requesting to go home she had not gotten any pain medication since arrival. Discussed concern for altered mental status on arrival, she denies any confusion and feels this is because her family thinks she gets confused. Discussed her abnormal kidney function, hyperkalemia, and need for further medical management. She said this was fine as long as she got her pain meds. Appears stable on room air and in no acute distress. Denies nausea, vomiting, fever, cough, chest pain Of note she had a recent Covid-19 diagnoses/course in February 2020. [facility] History I have reviewed the patient's past medical history: Yes Medical History: Reports:: Cardiomyopathy, Hyperlipidemia, Hypertension Denies:: Cancer, Diabetes Mellitus Type 1, Diabetes Mellitus Type 2, Internal Pacemaker, MRSA *Have you ever received a pneumonia vaccine?: Yes *Have you received a flu vaccine this season?: Yes Other Medical History: Reports: Arthritis Laterality Cases: Right: Arthroscopy Knee, Bilateral: Tonsillectomy Other Surgeries: Yes: Appendectomy, Cholecystectomy, Colonoscopy, Hysterectomy-Total. No: Pacemaker Amputation: No Fractures: No - *Social History Smoking Status: Never smoker Alcohol Intake: never Alcohol Intake Frequency:: other *Occupational Status:: retired Housing: house Household Members: family *Travel in the last 8 weeks: None Family Hx:: Unable to obtain Review of Systems - Review of Systems Review of systems:: pertinent systems reviewed and negative unless documented below (14 point review of systems performed, pertinent positives and negatives as per HPI) Meds Home Medications Medication Instructions Recorded Confirmed Type aspirin 81 mg tablet,delayed 81 mg PO DAILY 05/21/17 05/16/20 History release atenolol 50 mg tablet 50 mg PO HS 05/21/17 05/16/20 History cyanocobalamin (vitamin B-12) 2,500 mcg PO DAILY tab 05/21/17 05/16/20 History 1,000 mcg tablet furosemide 20 mg tablet 20 mg PO BID tab 05/21/17 05/16/20 History gabapentin 300 mg capsule 300 mg PO QID cap 05/21/17 05/16/20 History hydrocodone 10 mg-acetaminophen 1 tab PO QIDP PRN 05/21/17 05/16/20 History 325 mg tablet lisinopril 20 mg tablet 20 mg PO DAILY 05/21/17 05/16/20 History Potassium Chloride [Klor-con 20 40 meq PO DAILY 05/15/20 05/16/20 History mEq tablet] Allergies Allergy/AdvReac Type Severity Reaction Status Date / Time No Known Allergies Allergy Verified 01/21/20 13:02 Exam Vi
--- NOTE | 2020-05-16 08:54 | HMH.PHACONS ---
- Pharmacy Consult Date: 05/16/20 Time: 08:54 Referring provider: DR. HENRY Reason for Consult:: DR. HENRY Allergies and ADEs:: Allergies Allergy/AdvReac Type Severity Reaction Status Date / Time No Known Allergies Allergy Verified 01/21/20 13:02 Home Medications:: Home Medications Medication Instructions Recorded Confirmed Type aspirin 81 mg tablet,delayed 81 mg PO DAILY 05/21/17 05/15/20 History release atenolol 50 mg tablet 50 mg PO HS 05/21/17 05/15/20 History cyanocobalamin (vitamin B-12) 2,500 mcg PO DAILY tab 05/21/17 05/15/20 History 1,000 mcg tablet furosemide 20 mg tablet 20 mg PO BID tab 05/21/17 05/15/20 History gabapentin 300 mg capsule 300 mg PO QID cap 05/21/17 05/15/20 History hydrocodone 10 mg-acetaminophen 1 tab PO QIDP PRN 05/21/17 05/15/20 History 325 mg tablet lisinopril 20 mg tablet 20 mg PO DAILY 05/21/17 05/15/20 History Potassium Chloride [Klor-con 20 40 meq PO DAILY 05/15/20 05/15/20 History mEq tablet] Height: 1.52 m Weight: 92.136 kg Laboratory Results:: Laboratory Results - last 24 hr 05/15/20 19:15: Urine Color Yellow, Urine Appearance Clear, Urine pH 5.5, Ur Specific [place] 1.020, Urine Protein Negative, Urine Glucose (UA) Negative, Urine Ketones Negative, Urine Blood Negative, Urine Nitrate Negative, Urine Bilirubin Negative, Urine Urobilinogen 0.2, Ur Leukocyte Esterase Negative, Urine WBC Occasional, Urine Mucus Trace 05/15/20 19:15: WBC 13.1 H, RBC 4.67, Hgb 12.1 L, Hct 38.7, MCV 82.8, MCH 25.8 L, MCHC 31.2 L, RDW 18.3 H, Plt Count 247, MPV 9.9, Neut % (Auto) 81.2 H, Lymph % (Auto) 10.9, [place] % (Auto) 5.3, Eos % (Auto) 2.0, Baso % (Auto) 0.5, Neut # (Auto) 10.6 H, Lymph # (Auto) 1.4, [place] # (Auto) 0.7, Eos # (Auto) 0.3, Baso # (Auto) 0.1, ESR 31 H 05/15/20 19:15: Sodium 136, Potassium 7.2 H*, Chloride 104, Carbon Dioxide 24, Anion Gap 15.2 H, BUN 61 H, Creatinine 1.80 H, Estimated Creat Clear 33, Estimated GFR 27 L, Est GFR ( Amer) 32 L, Glucose 122 H, Calcium 9.8, Total Bilirubin 0.5, Direct Bilirubin 0.1, Conjugated Bilirubin 0.0, Indirect Bilirubin 0.4, Unconjugated Bilirubin 0.4, AST 21, ALT 14, Alkaline Phosphatase 182 H, C-Reactive Protein 25.0 H, Total Protein 7.5, Albumin 3.9, Procalcitonin 0.080 05/15/20 19:15: Lactate 1.0 05/15/20 19:48: Chlamy pneumoniae PCR Not detected, Adenovirus (PCR) Not detected, B. pertussis DNA (PCR) Not detected, Coronavirus OC43 (PCR) Not detected, Coronavirus HKU1 (PCR) Not detected, Coronavirus 229E (PCR) Not detected, SARS-CoV-2 (PCR) Not detected, Coronavirus NL63 (PCR) Not detected, Human Metapneumovir PCR Not detected, Influenza A (H1) PCR Not detected, Influ A (H1N1/09) PCR Not detected, Influenza A (H3) PCR Not detected, Influenza Type A (PCR) Not detected, Influenza Type B (PCR) Not detected, M. pneumoniae (PCR) Not detected, Parainfluenza 1 (PCR) Not detected, Parainfluenza 2 (PCR) Not detected, Parainfluenza 3 (PCR) Not detected, Parainfluenza 4 (PCR) Not detected, RSV (PCR) Not detected, Entero/Rhino (PCR) Not detected 05/15/20 19:56: Specimen Source R/r, O2 % 2, ABG pH 7.30 L, ABG pCO2 43.7, ABG pO2 82.9, ABG HCO3 20.8 L, ABG Total CO2 22.1 L, ABG O2 Saturation 96, ABG Base Excess -5.7 L, Uriel Test Y 05/15/20 23:15: Potassium 6.8 H* 05/16/20 01:25: POC Glucose 127 H 05/16/20 06:54: Sodium 134 L, Potassium 6.0 H, Chloride 106, Carbon Dioxide 25, Anion Gap 9.0, BUN 49 H, Creatinine 1.20 H D, Estimated Creat Clear 50, Estimated GFR 43 L, Est GFR ( Amer) 52 L D, Glucose 96 D, Calcium 9.1, Magnesium 2.0 Medical History: Reports:: Hyperlipidemia, Hypertension Denies:: Cancer, Diabetes Mellitus Type 1, Diabetes Mellitus Type 2, Internal Pacemaker, MRSA Assessment and Plan (1) History of COVID-19 Status: Acute Category: Medical Code(s): Z86.16 - Personal history of COVID-19 (2) Class 2 obesity Status: Acute Category: Medical Code(s): E66.9 - Obesity, unspecified (3) Acute kidney injury Status:
--- NOTE | 2020-05-16 10:54 | PC.NURSE ---
DR CASH MADE AWARE OF PT POTASSIUM LEVEL DURING ROUNDS THIS AM.
--- NOTE | 2020-05-16 11:20 | PC.NURSE ---
PT MORE ALERT THIS AM MED REC COMPLETED PER PT
--- NOTE | 2020-05-16 14:56 | HMH.PHAVTE ---
[facility] Pharmacy VTE Monitoring - Patient Demographics Admission date: 05/16/20 Report Date: 05/16/20 Time: 14:56 Allergies/Adverse Reactions: Patient Allergies No Known Allergies Allergy (Verified 01/21/20 13:02) Height: 1.52 m Weight: 92.136 kg Patient Problems: Current Active Problems CHF (congestive heart failure), NYHA class I (Chronic) Acute respiratory failure with hypoxia (Acute) Sepsis (Acute) Acute kidney injury (Acute) Hyperkalemia (Acute) History of COVID-19 (Acute) Class 2 obesity (Acute) Encephalopathy acute (Acute) Chronic use of opiate drug for therapeutic purpose (Chronic) - VTE Risk Labs: VTE Related Lab Results Hgb 12.1 g/dL (12.2-16.2) L 05/15/20 19:15 Hct 38.7 % (37.0-47.0) 05/15/20 19:15 Plt Count 247 K/mm3 (142-424) 05/15/20 19:15 BUN 49 mg/dl (7-17) H 05/16/20 06:54 Creatinine 1.20 mg/dl (0.52-1.04) H D 05/16/20 06:54 Estimated Creat Clear 50 mL/min (50-200) 05/16/20 06:54 VTE Score: 5 VTE Risk Level: Low Risk - Prophylaxis Types of VTE Prophylaxis: TEDS Knee High (LAYNE HOSE ORDER PLACED)
--- NOTE | 2020-05-16 15:04 | PC.NURSE ---
SHE IS AOX4, ABLE TO ANSWER QUESTIONS AND FOLLOW COMMANDS, NO SIGNS OF CONFUSION THIS SHIFT, SHE HAS BEEN UP TO CHAIR FOR MOST OF SHIFT, HAS AMBULATED TO THE BEDSIDE COMMODE WITH WALKER/ASSIST X1, SHE DID SEEM WEAK WHILE AMBULATING. BOWEL SOUNDS ARE ACTIVE X4 AND SHE DENIES N/V/D, ONE SMALL BM THIS MORNING, [place] CATH STILL IN PLACE DRAINING CLEAR YELLOW URINE. SHE HAS REQUESTED PAIN MEDICATION X1 SO FAR THIS SHIFT AND WAS MEDICATED PER MAR WITH GOOD EFFECTIVENESS NOTED, UPON RE-ASSESSMENT PT WSA NOTED TO BE SLEEPING IN CHAIR. SHE HAS A DRESSING IN PLACE TO HER COCCYX THAT IS COVERING A SMALL REDDENED AREA THAT WAS APPLIED ON ADMISSION TO THE MED-SURG DEPARTMENT AND REMAINS C/D/I. GOOD AIR MOVEMENT ON AUSCULTATION WITH CRACKLES IN BILATERAL BASES. 1L NC IN PLACE FOR MOST OF THE DAY. HEART MONITOR IN PLACE R/T CRITICAL POTASSIUM LEVEL;NSR T/O SHIFT. VITAL SIGNS HAVE REMAINED STABLE, NO NEEDS AT THIS TIME. WILL CONTINUE TO MONITOR.
[2020-05-17 03:37] VITALS: BP 116/52; PULSE 71; RESP 16; TEMP 36.8; O2SAT 90
--- NOTE | 2020-05-17 04:05 | PC.NURSE ---
Pt. able to state name, , place and year; no episodes of confusion noted. Pt. has not c/o n/v/d, soa or dizziness. Pt. c/o lle pain x2; tx with norco per mar; effectiveness reported. FC draining bright yellow urine. Pt. reminded to t/r q2h.
[2020-05-17 05:11] VITALS: BMI 38.3
[2020-05-17 06:42] LABS: Basophils % 0.4 % (0.1-2.0); Eosinophils # 0.4 K/mm3 (0.0-0.4); Eosinophils % 4.7 % (0.1-12.0); Hematocrit 31.2 % (37.0-47.0); Hemoglobin 9.9 g/dL (12.2-16.2); Lymphocytes # 1.5 K/mm3 (0.7-4.5); Lymphocytes % 18.3 % (10-50); Mean Corpuscular HGB Conc 31.6 g/dL (31.8-35.4); Mean Corpuscular Hemoglobin 25.7 pg (27.0-31.2); Mean Corpuscular Volume 81.1 fl (81-99); Mean Platelet Volume 8.9 fl (7.4-10.4); Monocytes # 0.8 K/mm3 (0.1-1.0); Neutrophils # 5.5 K/mm3 (1.8-7.8); Neutrophils % 66.6 % (37.0-80.0); Platelet Count 152 K/mm3 (142-424); Red Blood Count 3.85 M/mm3 (4.20-5.40); Red Cell Distribution Width 19.2 % (11.5-17.5); White Blood Count 8.3 K/mm3 (4.8-10.8)
[2020-05-17 06:45] LABS: Chloride 108 mmol/L (98-107); Potassium 5.1 mmoL/L (3.5-5.1); Sodium 137 mmol/L (136-145)
[2020-05-17 06:47] LABS: Blood Urea Nitrogen 32 mg/dl (7-17)
[2020-05-17 06:48] LABS: Alanine Aminotransferase 9 U/L (12-78); Albumin Level 2.9 g/dl (3.5-5.0); Alkaline Phosphatase 121 U/L (38-126); Aspartate Amino Transferase 16 U/L (14-36); Bilirubin,Total 0.7 mg/dl (0.2-1.3); Calcium 9.2 mg/dl (8.4-10.2); Carbon Dioxide 27 mmol/L (22.0-30.0); Creatinine Clearance Estimated 58 mL/min (50-200); Estimated Glomerular Filt Rate 53 ml/min (>60); GFR (African American) 64 ML/MIN (>60); Globulin 2.9 g/dL (1.3-3.2); Glucose 93 mg/dl (74-100); Total Protein,Serum 5.8 g/dl (6.3-8.2)
[2020-05-17 08:00] VITALS: BP 132/68; PULSE 71; RESP 20; TEMP 36.6; O2SAT 93
--- NOTE | 2020-05-17 08:38 | HMH.DCSUM ---
General - General Admission date:: 05/16/20 Discharge date: 05/17/20 HPI HPI: In summary is an 84-year-old female presenting for encephalopathy and fever. Family brought her to the ER yesterday due to onset of confusion and fever at home. On arrival to the ER she was alert and oriented, had no signs of trauma, and no focal neurologic findings. Because of her encephalopathy a CT of her head was ordered that was found to be negative. Infectious work-up initiated and fluids given. Patient infectious work-up was significant for no urinary tract infection, chest x-ray demonstrated possible opacities in bilateral chest, ER was concern for Covid, swab was negative. Of note her labs were significant for acute kidney injury with baseline creatinine 0.9, now 1.8, patient's potassium is 7.2, EKG did not demonstrate any QT prolongation or signs of hyperkalemia on findings. Patient received calcium, insulin, glucose and furosemide. Patient made 2 L of urine on repeat assessment, repeat potassium level was 6.8, as patient did not require emergent hemodialysis at this time, patient was admitted to medicine for further management of hyperkalemia, acute kidney injury, and concern for sepsis given her fever, white cell count, oxygen requirement/tachypnea, and presumed respiratory infection. Started on broad-spectrum antibiotics for healthcare acquired pneumonia given recent admission. On morning assessment, she was alert and oriented sitting on bedside commode. Requesting to go home she had not gotten any pain medication since arrival. Discussed concern for altered mental status on arrival, she denies any confusion and feels this is because her family thinks she gets confused. Discussed her abnormal kidney function, hyperkalemia, and need for further medical management. She said this was fine as long as she got her pain meds. Appears stable on room air and in no acute distress. Denies nausea, vomiting, fever, cough, chest pain Of note she had a recent Covid-19 diagnoses/course in February 2020. Hospital Course Hospital Course: Patient was admitted, immediately had cleared her diminished level of consciousness and wished to go home, however given her hyperkalemia and acute kidney injury she was held over again. Given lack of findings of sepsis, or other etiology of confusion we settled on possibly side effect of her opiate therapy along with gabapentin. She has been on stable doses for many years but as she has aged her metabolism seems to have slowed down and this is the second time she is been admitted for confusion and poor oral intake. She was amenable to dose changes and yesterday she received her [place] therapy 3 times a day which seemed to control her pain adequately. I discussed the issue with her this morning and plan will be to send her home on 3 times daily hydrocodone instead of 4 times daily, we will also adjust her gabapentin dose downward as noted and we will have close follow-up in the office this week to assess her pain and neuropathy issues. Of note given patient's persistent hyperkalemia and acute kidney injury-although both are resolved have asked her to stop her potassium in light of her use of angiotensin converting enzyme inhibitors. Objective Vital signs: Temp Pulse Resp BP Pulse Ox 98.3 F 71 16 116/52 L 90 L 05/17/20 03:37 05/17/20 03:37 05/17/20 03:37 05/17/20 03:37 05/17/20 03:37 no acute distress - *Routine HEENT Exam Head: Present: normocephalic Eye: Present: EOMI, PERRL ENT: Present: mucous membranes moist - *Routine Neck Exam Present: supple - *Routine Respiratory Exam Present: CTA bilaterally - *Routine Cardiovascular Exam Present: RRR - *Routine Abdominal Exam Present: soft, normoactive bowel sounds. Absent: tenderness - *Routine Extremities Exam Absent: cyanosis, clubbing, edema - *Routine Skin Exam Present: warm. Absent: rash - Detailed Eye Exam Eyelids:
== END 2020-05-17 11:50 | disposition home or self-care (01) | DRG 91 ==
LOC: ER 19:25 → 2ND 05-16 00:32
PROVIDERS: Emergency Medicine; Admitting Provider Internal Medicine Adolescent Medicine; Emergency Provider Emergency Medicine; PCP Nurse Practitioner Family; Visit Provider Internal Medicine Adolescent Medicine
DX: G92 Toxic encephalopathy (principal); J96.01 Acute respiratory failure with hypoxia; I50.42 Chronic combined systolic (congestive) and diastolic (congestive) heart failure; N17.9 Acute kidney failure, unspecified; T40.2X5A Adverse effect of other opioids, initial encounter; Z86.16 Personal history of COVID-19; E87.5 Hyperkalemia; Z79.891 Long term (current) use of opiate analgesic; Z79.899 Other long term (current) drug therapy
CPT/HCPCS: 70450; 71045; 80048; 80053; 80076; 81001; 82803; 82962; 83605; 83735; 84132; 84145; 85025; 85651; 86140; 87040; 87581; 87633; 87798; 93005; 96365; 96366; 96367; 99285; J0456

== ENCOUNTER → 2020-05-20 12:18 | Outpatient (CLI) | payer MEDICARE, SELFPAY ==
[2020-05-20 13:13] LABS: Chloride 102 mmol/L (98-107); Sodium 140 mmol/L (136-145)
[2020-05-20 13:14] LABS: Potassium 4.8 mmoL/L (3.5-5.1)
[2020-05-20 13:17] LABS: Anion Gap 11.8 mEq/L (5-15); Blood Urea Nitrogen 18 mg/dl (7-17); Calcium 9.7 mg/dl (8.4-10.2); Carbon Dioxide 31 mmol/L (22.0-30.0); Estimated Glomerular Filt Rate 68 ml/min (>60); GFR (African American) 82 ML/MIN (>60); Glucose 104 mg/dl (74-100)
== END ==
PROVIDERS: Visit Provider Nurse Practitioner Family
DX: E78.5 Hyperlipidemia, unspecified (principal)
CPT/HCPCS: 36415; 80048

== ENCOUNTER → 2020-06-28 09:48 | Outpatient (CLI) | payer MEDICARE, SELFPAY ==
[2020-06-28 10:03] LABS: Basophils % 0.6 % (0.1-2.0); Eosinophils # 0.3 K/mm3 (0.0-0.4); Eosinophils % 4.5 % (0.1-12.0); Hematocrit 37.7 % (37.0-47.0); Hemoglobin 11.4 g/dL (12.2-16.2); Lymphocytes # 1.6 K/mm3 (0.7-4.5); Lymphocytes % 21.4 % (10-50); Mean Corpuscular HGB Conc 30.4 g/dL (31.8-35.4); Mean Corpuscular Volume 82.3 fl (81-99); Mean Platelet Volume 9.3 fl (7.4-10.4); Monocytes # 0.5 K/mm3 (0.1-1.0); Neutrophils % 67.5 % (37.0-80.0); Platelet Count 276 K/mm3 (142-424); Red Blood Count 4.58 M/mm3 (4.20-5.40); Red Cell Distribution Width 16.8 % (11.5-17.5); White Blood Count 7.5 K/mm3 (4.8-10.8)
[2020-06-28 10:58] LABS: Chloride 98 mmol/L (98-107)
[2020-06-28 11:33] LABS: Potassium 4.1 mmoL/L (3.5-5.1); Sodium 140 mmol/L (136-145)
[2020-06-28 11:36] LABS: Anion Gap 9.1 mEq/L (5-15); Blood Urea Nitrogen 12 mg/dl (7-17); Calcium 9.2 mg/dl (8.4-10.2); Carbon Dioxide 37 mmol/L (22.0-30.0); Estimated Glomerular Filt Rate 68 ml/min (>60); GFR (African American) 82 ML/MIN (>60); Glucose 104 mg/dl (74-100)
== END ==
PROVIDERS: Visit Provider Nurse Practitioner Family
DX: E87.5 Hyperkalemia (principal)
CPT/HCPCS: 36415; 80048; 85025

== ENCOUNTER → 2020-09-13 08:48 | Outpatient (POV) | payer MEDICARE, SELFPAY ==
[2020-09-13 09:36] VITALS: BP 112/46; PULSE 68; RESP 18; O2SAT 94; BMI 39.9
--- NOTE | 2020-09-13 12:18 | HMH.PMCON ---
Assessment and Plan (1) Degenerative joint disease (DJD) of lumbar spine Status: Chronic Category: Medical Code(s): M47.816 - Spondylosis without myelopathy or radiculopathy, lumbar region (2) Lumbar radiculopathy Status: Chronic Category: Medical Code(s): M54.16 - Radiculopathy, lumbar region - Assessment and plan all Dx Assessment and Plan for all problems:: Patient was referred to the clinic for possible intrathecal therapy. She does take oral medications of [place] 10 mg 1 tablet p.o. 4 times daily as well as gabapentin. This has not given her any significant relief. She has not had injections in the past. We did discuss an epidural steroid injection diagnostically to determine if she is an intrathecal pain pump candidate versus spinal cord stimulation. Patient's pain is primarily in the low back and bilateral lower extremities. We will schedule her for a lumbar epidural steroid injection at L4-L5 area. She is at that time, the provider will discuss the patient's options with her. Patient has had lumbar surgery x2. She has never had any injective therapy. She denied did discuss that SCS therapy may be a better option for her, as her pain is primarily low back and legs. We will follow up with her after her injection to discuss a further plan of car and get recommendations from Dr. Nix. The patient will continue with home stretching until the next visit along with ice and heat therapies. Patient is in agreement. Patient has been instructed to contact the clinic with any concerns before the next appointment. Dr. Hernandez has reviewed this note and agrees with this plan of care. This note was dictated using voice recognition software and make contain errors or omissions. HPI - Data of Consult Patient: new to practice Consult date: 09/13/20 Requesting Physician: Myrna Adorno APRN Primary Care Provider: Fannie Byrd APRN - Consult Narrative Reason for consult: Low back pain with radiation into bilateral lower extremities, History of present illness: Ms. Garcia is a 85 year old female who presents today for consultation for low back pain with radiation into lower extremities. She was referred to us by Fannie Byrd. Patient says she has had this back pain for many years. The pain is in the low back radiating into the right leg. She has had back surgery x2 in the past. She does take [place] 10 mg 3 times daily as well as gabapentin with about 30% relief. She continues to have worsening pain. She rates her pain a 6 out of 10 today. The pain is worse with standing and walking and improves with sitting. Patient does have numbness and tingling into her lower extremities as well. She reports to be having severe pressure to bilateral feet. She says when pushing down with her feet onto the floor she does get some relief of her foot pain. The patient has tried and failed conservative therapies of physical therapy for more than 6 weeks along with continued home stretching. She is also tried anti-inflammatories in the past with no significant relief. She does continue with ice and heat therapies. She also continues with home stretching. Patient does states she was referred to the clinic for possible intrathecal therapy. Patient does not have pain to her mid back or neck. Patient's pain is primarily in the low back and lower extremities. She denies any saddle anesthesia or changes in bowel or bladder habit. CC: Myrna Adorno APRN [facility] History I have reviewed the patient's past medical history: Yes Medical History: Reports:: Cardiomyopathy, Hyperlipidemia, Hypertension Denies:: Cancer, Diabetes Mellitus Type 1, Diabetes Mellitus Type 2, Internal Pacemaker, MRSA *Have you ever received a pneumonia vaccine?: Yes *Have you received a flu vaccine this season?: Yes Other Medical History: Reports: Arthritis Laterality Cases: Right: Arthroscopy Knee, Total Knee Replacement, Bilateral: Tonsillectomy Other Surgeries: Yes: Judi
== END ==
PROVIDERS: PCP Nurse Practitioner Family; Visit Provider Clinical Nurse Specialist Family Health
DX: M47.896 Other spondylosis, lumbar region (principal); M54.16 Radiculopathy, lumbar region
CPT/HCPCS: 99202; G0463

== ENCOUNTER 2020-10-06 09:31 | Day surgery (SDC) | payer MEDICARE, SELFPAY ==
[2020-10-06 09:44] VITALS: BP 145/55; PULSE 59; RESP 20; TEMP 36.6; O2SAT 96; BMI 40.4
--- NOTE | 2020-10-06 10:57 | HMH.PMPROC ---
- Procedure Date: 10/06/20 Time: 10:57 Anesthesiologist:: Lizeth Nix MD Complications:: None Pre-procedure Diagnosis:: Degenerative disc disease of lumbar spine, lumbar radiculopathy Post-procedure Diagnosis:: Same Indications for Procedure:: Patient is a very pleasant 85-year-old white female who presents today with chronic low back pain and bilateral leg pain related to the above diagnosis. She was initially referred to our clinic for possible intrathecal therapy. She is currently taking oral pain medications including [place] 10 mg 1 tablet p.o. 4 times a day as well as gabapentin but denies any pain relief with this medication regimen. She has not previously undergone any injections in the past. She is also trialed and failed home stretching program for greater than 6 weeks in addition to oral pain medications as outlined above. She has previously undergone lumbar surgery x2. Plan for today is for the patient to undergo lumbar epidural steroid injection S1 under fluoroscopy at L5-S1 under fluoroscopy #1. Procedure Details:: Informed consent was obtained and the risk and benefits of the procedure was explained to the patient. The patient was taken to the procedure room. The patient was placed prone on the procedure table. The patient was prepped and draped in sterile fashion. C-arm fluoroscopy was used to view the lumbar spine. Skin and subcutaneous tissues were anesthetized using lidocaine. I placed an 18-gauge epidural needle and advanced into the L5-S1 interspace using fluoroscopic guidance and [id number] to air and saline. After confirmation of needle placement in the epidural space with dye I injected 1 mL of lidocaine 1.0% with Depo-Medrol 80 mg. Patient tolerated the procedure well with no complications. Plan and Disposition:: Follow-up with this patient in 2 weeks. Will reevaluate pain symptoms at that time. Should the patient receive only minimal or very short-term pain relief, we will further discuss spinal cord stimulation therapy with the patient as a potential treatment modality in the future for better pain relief.
[2020-10-06 10:58] VITALS: BP 155/68; PULSE 69; RESP 18; O2SAT 93
[2020-10-06 11:04] VITALS: BP 146/74; PULSE 62; RESP 18; O2SAT 93
[2020-10-06 11:20] VITALS: BP 136/65; PULSE 60; RESP 20; O2SAT 98
== END 2020-10-06 11:21 | disposition home or self-care (01) ==
LOC: SC.PAINP 09:36
PROVIDERS: PCP Nurse Practitioner Family; Visit Provider Anesthesiology Pain Medicine
DX: M51.16 Intervertebral disc disorders with radiculopathy, lumbar region (principal)
CPT/HCPCS: 62323; J1040; Q9966

== ENCOUNTER → 2020-10-11 09:26 | Outpatient (CLI) | payer MEDICARE, SELFPAY ==
[2020-10-11 10:05] LABS: Basophils # 0.1 K/mm3 (0-0.2); Basophils % 0.8 % (0.1-2.0); Eosinophils # 0.2 K/mm3 (0.0-0.4); Eosinophils % 3.4 % (0.1-12.0); Hematocrit 38.3 % (37.0-47.0); Hemoglobin 10.2 g/dL (12.2-16.2); Lymphocytes # 1.3 K/mm3 (0.7-4.5); Lymphocytes % 19.9 % (10-50); Mean Corpuscular HGB Conc 26.7 g/dL (31.8-35.4); Mean Corpuscular Hemoglobin 20.3 pg (27.0-31.2); Mean Corpuscular Volume 76.1 fl (81-99); Mean Platelet Volume 9.1 fl (7.4-10.4); Monocytes # 0.5 K/mm3 (0.1-1.0); Monocytes % 8.1 % (1.7-9.3); Neutrophils # 4.3 K/mm3 (1.8-7.8); Neutrophils % 67.8 % (37.0-80.0); Platelet Count 214 K/mm3 (142-424); Red Blood Count 5.03 M/mm3 (4.20-5.40); Red Cell Distribution Width 17.4 % (11.5-17.5); White Blood Count 6.3 K/mm3 (4.8-10.8)
[2020-10-11 13:14] LABS: Alanine Aminotransferase 10 U/L (12-78); Albumin Level 3.6 g/dl (3.5-5.0); Albumin/Globulin Ratio 1.3 (1.1-1.8); Alkaline Phosphatase 144 U/L (38-126); Aspartate Amino Transferase 20 U/L (14-36); Bilirubin,Total 0.7 mg/dl (0.2-1.3); Blood Urea Nitrogen 17 mg/dl (7-17); Calcium 8.2 mg/dl (8.4-10.2); Carbon Dioxide 38 mmol/L (22.0-30.0); Chloride 93 mmol/L (98-107); Estimated Glomerular Filt Rate 59 ml/min (>60); GFR (African American) 72 ML/MIN (>60); Globulin 2.7 g/dL (1.3-3.2); Glucose 98 mg/dl (74-100); Sodium 141 mmol/L (136-145); Total Protein,Serum 6.3 g/dl (6.3-8.2)
[2020-10-11 14:07] LABS: Vitamin B12 > 1000 pg/mL (239-931)
== END ==
PROVIDERS: Visit Provider Nurse Practitioner Family
DX: I10 Essential (primary) hypertension (principal); D64.9 Anemia, unspecified
CPT/HCPCS: 36415; 80053; 82607; 85025

== ENCOUNTER 2020-10-17 10:38 | Inpatient (IN) | payer MEDICARE, SELFPAY ==
[2020-10-17 10:40] VITALS: BMI 40.5
[2020-10-17 11:28] LABS: Coronavirus 19, PCR Not Detected (NotDetected); Influenza A, PCR Not Detected (NotDetected); Influenza B, PCR Not Detected (NotDetected)
[2020-10-17 11:30] LABS: Basophils # 0.1 K/mm3 (0-0.2); Basophils % 0.6 % (0.1-2.0); Eosinophils # 0.1 K/mm3 (0.0-0.4); Eosinophils % 1.1 % (0.1-12.0); Hematocrit 34.4 % (37.0-47.0); Hemoglobin 9.7 g/dL (12.2-16.2); Lymphocytes # 0.7 K/mm3 (0.7-4.5); Lymphocytes % 7.9 % (10-50); Mean Corpuscular HGB Conc 28.1 g/dL (31.8-35.4); Mean Corpuscular Hemoglobin 20.9 pg (27.0-31.2); Mean Corpuscular Volume 74.4 fl (81-99); Mean Platelet Volume 8.8 fl (7.4-10.4); Monocytes # 0.5 K/mm3 (0.1-1.0); Monocytes % 5.3 % (1.7-9.3); Neutrophils # 7.5 K/mm3 (1.8-7.8); Neutrophils % 85.1 % (37.0-80.0); Platelet Count 154 K/mm3 (142-424); Red Blood Count 4.63 M/mm3 (4.20-5.40); Red Cell Distribution Width 18.1 % (11.5-17.5); White Blood Count 8.8 K/mm3 (4.8-10.8)
[2020-10-17 11:31] LABS: MANUAL DIFFERENTIAL MANUAL DIFFERENTIAL (MANUAL DIFF)
[2020-10-17 11:34] LABS: Chloride 97 mmol/L (98-107); Potassium 3.6 mmoL/L (3.5-5.1); Sodium 141 mmol/L (136-145)
[2020-10-17 11:37] LABS: Blood Urea Nitrogen 19 mg/dl (7-17); Creatinine Clearance Estimated 50 mL/min (50-200); Estimated Glomerular Filt Rate 43 ml/min (>60); GFR (African American) 52 ML/MIN (>60)
[2020-10-17 11:38] LABS: Anion Gap 8.6 mEq/L (5-15); Calcium 7.9 mg/dl (8.4-10.2); Carbon Dioxide 39 mmol/L (22.0-30.0); Glucose 92 mg/dl (74-100)
[2020-10-17 11:49] LABS: Anisocytosis 1+; Eosinophils % 1 % (0-3); Hypochromasia 2+; Lymphocytes % 10 % (10-50); Microcytosis 1+; Monocytes % 7 % (2-9); Neutrophils % 80 % (42-76); Nucleated Red Blood Cells 1; Platelet Estimate Normal; Total Cells Counted 100
[2020-10-17 12:32] VITALS: BP 97/53; PULSE 56; RESP 18; TEMP 36.6; O2SAT 93
[2020-10-17 14:43] LABS: Lactic Acid 1.2 mmol/L (0.7-2.1)
--- NOTE | 2020-10-17 14:58 | CT_ITS ---
PROCEDURE INFORMATION: Exam: CT Head Without Contrast Exam date and time: 10/17/2020 2:58 PM Age: 85 years old Clinical indication: Altered mental status/memory loss; Additional info: Mental status changes TECHNIQUE: Imaging protocol: Computed tomography of the head without contrast. 3D rendering (Not supervised by radiologist): MIP and/or 3D reconstructed images were created by the technologist. Radiation optimization: All CT scans at this facility use at least one of these dose optimization techniques: automated exposure control; mA and/or kV adjustment per patient size (includes targeted exams where dose is matched to clinical indication); or iterative reconstruction. COMPARISON: CT HEAD/BRAIN WO CON 05/15/2020 8:42 PM FINDINGS: Brain: There is age-appropriate cerebral atrophy. Mild changes of chronic small vessel ischemia within the cerebral white matter regions bilaterally. No acute infarct or hemorrhage. Cerebral ventricles: No ventriculomegaly. Paranasal sinuses: Visualized sinuses are unremarkable. No fluid levels. Mastoid air cells: Visualized mastoid air cells are well aerated. Bones/joints: Unremarkable. No acute fracture. Soft tissues: Unremarkable. IMPRESSION: No acute intracranial abnormality.
--- NOTE | 2020-10-17 14:58 | XR_ITS ---
PROCEDURE INFORMATION: Exam: XR Chest Exam date and time: 10/17/2020 2:58 PM Age: 85 years old Clinical indication: Cough TECHNIQUE: Imaging protocol: XR of the chest. Views: 1 view. COMPARISON: CR XR CHEST PORTABLE 05/15/2020 8:18 PM FINDINGS: Lungs: Pulmonary vascular congestion. Faint infiltrate at the left lung base. Pleural spaces: Unremarkable. No pleural effusion. No pneumothorax. Heart/Mediastinum: Cardiomegaly. Bones/joints: Unremarkable. Soft tissues: Soft tissue prominence in the right paratracheal region likely artifactual secondary to slight rotation on this exam. IMPRESSION: 1. Cardiomegaly and pulmonary vascular congestion. 2. Left lung base infiltrate may represent superimposed pneumonia. 3. Right paratracheal soft tissue prominence. Probably artifactual secondary to rotation. Consider dedicated PA and lateral exam of the chest.
[2020-10-17 15:12] LABS: Magnesium 1.9 mg/dl (1.6-2.3)
--- NOTE | 2020-10-17 15:16 | P.CONPHA_ITS ---
[facility] Pharmacy VTE Monitoring - Patient Demographics Admission date: 10/17/20 Report Date: 10/17/20 Time: 15:16 Allergies/Adverse Reactions: Patient Allergies No Known Allergies Allergy (Verified 10/06/20 09:48) Height: 1.52 m Weight: 94.2 kg - VTE Risk Labs: VTE Related Lab Results Hgb 9.7 g/dL (12.2-16.2) L 10/17/20 11:22 Hct 34.4 % (37.0-47.0) L 10/17/20 11:22 Plt Count 154 K/mm3 (142-424) 10/17/20 11:22 BUN 19 mg/dl (7-17) H 10/17/20 11:22 Creatinine 1.20 mg/dl (0.52-1.04) H 10/17/20 11:22 Estimated Creat Clear 50 mL/min (50-200) 10/17/20 11:22 - Prophylaxis VTE Prophylaxis Ordered?: Yes Types of VTE Prophylaxis: TEDS Knee High Location of Applied Device: Bilateral Lower Extremeties
--- NOTE | 2020-10-17 15:19 | PC.NURSE ---
Unable to complete med rec at this time. Pt is sedated from previous facility. Daughter unaware of when pt takes her meds as well.
[2020-10-17 15:25] LABS: Troponin I 0.02 ng/ml (0.00-0.034)
--- NOTE | 2020-10-17 15:27 | HMH.ACPN2 ---
Internal Medicine - PN: Subj *Date: 10/17/20 *Time: 15:29 Interval history: data and history entered for Dr Hoyos's review this patient follows him she had been admitted 05-16-20 for encephalopathy related to metabolic aberrations was hyperkalemic on that occasion at 7.2 received calcium/glucose/insulin/lasix and cleared correction analgesics for pain, norco and gabapentin, both were downtitrated and kcl was stopped by history pt was at the [facility] last evening she fell on her way into the restaurant she had an episode of agonal breathing ems gave nasal narcan and was attempting to intubate when she awoke her home meds listed were: bactrim ds bid escitalopram 5 qd lasix 40 qd lisinopril 10 qd topical triamcinolone atenolol 5 hs norco 10/325 qid prn gabapentin 300 qid prn in the er she was restless,agitated,combative,uncooperative she was given zofran/fentanyl/ativan/geodon im x 2 labs and imaging were done will repeat ct brain in this facility given the history of fall prelim labs are ordered pt has been noted to move all 4's and arouses with sternal rub and family's encouragement she appears sedated she was admitted here because [facility] lacked an icu bed family states that she is a strict dnr and they do not wish her to be intubated Exam Vital signs and Labs for Last 24 Hours: Temp Pulse Resp BP Pulse Ox 97.8 F 56 L 18 97/53 L 93 L 10/17/20 12:32 10/17/20 12:32 10/17/20 12:32 10/17/20 12:32 10/17/20 12:32 Laboratory Results - last 24 hr 10/17/20 11:22: SARS-CoV-2 (PCR) Not detected, Influenza A Untype (PCR) Not detected, Influenza Type B (PCR) Not detected 10/17/20 11:22: WBC 8.8, RBC 4.63, Hgb 9.7 L, Hct 34.4 L, MCV 74.4 L, MCH 20.9 L, MCHC 28.1 L, RDW 18.1 H, Plt Count 154, MPV 8.8, Neut % (Auto) 85.1 H, Lymph % (Auto) 7.9 L, [place] % (Auto) 5.3, Eos % (Auto) 1.1, Baso % (Auto) 0.6, Neut # (Auto) 7.5, Lymph # (Auto) 0.7, [place] # (Auto) 0.5, Eos # (Auto) 0.1, Baso # (Auto) 0.1, Total Counted 100, Neutrophils % (Manual) 80 H, Band Neutrophils % 1.0, Lymphocytes % (Manual) 10, Monocytes % (Manual) 7, Eosinophils % (Manual) 1, Metamyelocytes % 1.0, Nucleated RBCs 1, Platelet Estimate Normal, Hypochromasia 2+, Anisocytosis 1+, Microcytosis 1+ 10/17/20 11:22: Sodium 141, Potassium 3.6, Chloride 97 L, Carbon Dioxide 39 H, Anion Gap 8.6, BUN 19 H, Creatinine 1.20 H, Estimated Creat Clear 50, Estimated GFR 43 L, Est GFR ( Amer) 52 L, Glucose 92, Calcium 7.9 L 10/17/20 11:22: Magnesium 1.9, Troponin I 0.02 10/17/20 14:25: Lactate 1.2 I & O for Last 24 hours: Intake & Output 10/14/20 10/15/20 10/16/20 10/17/20 23:59 23:59 23:59 23:59 Intake Total 0 / 0 Balance 0 / 0 Weight 207 lb 10.807 oz - Constitutional no acute distress, obese, somnolent - *Routine HEENT Exam Head: Present: atraumatic Eye: Absent: conjunctival icterus, periorbital ecchymosis ENT: Present: mucous membranes moist - *Routine Neck Exam Present: supple. Absent: lymphadenopathy - *Routine Respiratory Exam Absent: accessory muscle use, respiratory distress, stridor - *Routine Cardiovascular Exam Present: RRR - *Routine Abdominal Exam Present: soft, normoactive bowel sounds. Absent: tenderness - *Routine Extremities Exam Absent: cyanosis, clubbing, calf tenderness Comments: s/p tkr - *Routine Skin Exam Absent: cyanosis, mottling, jaundice - *Routine Neurological Exam Present: altered mental status, moving all extremities. Absent: alert, oriented X3, normal speech, tremors Assessment and Plan (1) Encephalopathy acute Status: Resolved Category: Medical Code(s): G93.40 - Encephalopathy, unspecified (2) Obesity (BMI 30-39.9) Status: Chronic Category: Medical Code(s): E66.9 - Obesity, unspecified (3) Chronic use of opiate drug for therapeutic purpose Status: Chronic Category: Medical Code(s): Z79.891 - halfway (current) use of opiate analgesic - Assessm
[2020-10-17 15:57] VITALS: BP 100/85; PULSE 60; RESP 18; TEMP 36.6; O2SAT 95
--- NOTE | 2020-10-17 15:58 | ECG_ITS ---
APPROVED REPORT Exam: Resting ECG HR:62 bpm ECG Measurements Heart Rate 62 AXES MS 156 P 51 QRSd 88 QRS -13 QT 432 T 2 QTc 438 Conclusion Normal sinus rhythm Low voltage QRS Nonspecific ST abnormality Abnormal ECG Electronically signed by : Per Hoyos, 10/17/2020 20:39:10
[2020-10-17 16:04] LABS: Ammonia < 9 umol/L (9-30)
[2020-10-17 16:11] LABS: Microscopic, Urine URINE MICROSCOPIC (MICROSCOPIC)
[2020-10-17 16:14] LABS: Appearance,Urine CLEAR (Clear); Bilirubin,Urine Negative (Negative); Blood, Urine 1+ (Negative); Color,Urine YELLOW (Yellow); Glucose,Urine (UA) Negative (Negative); Ketones,Urine Negative (Negative); Leukocyte Esterase,Urine TRACE (Negative); Nitrate,Urine Negative (Negative); Protein,Urine TRACE (Negative); Specific Gravity, Urine 1.025 (1.005-1.030); Urobilinogen,Urine 0.2 EU/dl (0.2)
[2020-10-17 16:18] LABS: ABG Base Excess 10.6 mmol/L (-2.4-2.3); ABG HCO3 36.3 mmhg (22.0-26.0); ABG Oxygen Saturation 94 % (90-100); ABG PH 7.34 mmol/L (7.35-7.45); ABG PO2 78.3 mmhg (80-100); ABG TCO2 38.5 mmhg (23-27)
[2020-10-17 16:19] LABS: Lactate Arterial 1.5 mmol/L (0.4-2.0)
[2020-10-17 16:22] LABS: Oxygen 3L NC %
[2020-10-17 16:23] LABS: Allen's Test Acceptable; Source Left Radial
[2020-10-17 16:28] LABS: ABG PCO2 68.6 mmhg (35.0-45.0)
--- NOTE | 2020-10-17 16:32 | PC.NURSE ---
1627 spoke with Baylee in respiratory, verified patient's name, and room number, ABG results received, Dr. River notified of results at 1630, ordered Bipap to be applied, RT notified
[2020-10-17 16:36] LABS: Thyroid Stimulating Hormone 0.53 uIU/mL (0.465-4.68)
[2020-10-17 18:17] VITALS: BP 102/62; PULSE 64; RESP 20; TEMP 36.5; O2SAT 90
[2020-10-17 19:16] VITALS: RESP 16; RESP 20
[2020-10-17 20:00] VITALS: BP 112/79; PULSE 64; PULSE 65; RESP 16; TEMP 37.1; O2SAT 90; O2SAT 96
[2020-10-17 22:00] VITALS: BP 136/79; PULSE 70; O2SAT 95
--- NOTE | 2020-10-17 23:21 | PC.NURSE ---
She is A&Ox3. She denied pain but later ask for her pain medication. Spoke with MD web operations administrator and pain medication is on hold at this time r/t AMS upon admission. Staff assisted with repositioning in bed. COWS 0. During initial assessment: denied pain, headache, nausea, vomiting, diarrhea, stomach cramps. sweats and chills, tingling, body aches, and hallucinations. She is able to sit still, NSR on telemetry. PERRLA 2. She reports her last BM was today. She has a bruise on her left hand. Trace edema to BLE.
[2020-10-18] VITALS (10 sets, daily range): BP systolic 108–137; BP diastolic 49–72; PULSE 70–97; RESP 18–21; TEMP 36.5–37.3; O2SAT 89–95; BMI 40.4
--- NOTE | 2020-10-18 07:58 | HMH.HP ---
*Admission Date: 10/17/20 *Chief complaint: Mental status changes *History of present illness: 85-year-old white female with multiple medical problems who takes gabapentin, trazodone and 10 mg 4 times daily of [place] at home was at a restaurant in [place], [place] late on October 16 when after leaving the restaurant she had an episode of mental status changes and thrashing about in her car. She was unresponsive to verbal stimuli and EMS was called who administered Narcan on the way to the [facility]. In the [place] emergency department records reflect that she was out of control and was given several doses of Geodon because of her mental status changes and combativeness. On-call physician was called who accepted patient in transfer to [facility] because [place] didn't have any ICU beds. The patient arrived on second floor in our stepdown unit in soft restraints and with minimally responsive mental status. Over the next 12 hours patient has awoken, and has cleared and is now alert and oriented x2, a little fuzzy about the date. She does not remember anything about her last 24 hours except leaving the restaurant after she ate. There was some discussion that she may have taken extra pills at the restaurant but she denies this and her daughter-who was not at the restaurant-reports that there was really no way this could've happened as her daughter monitors all of her medication. Please note that this patient has had a couple episodes of mental status changes before that we have attributed to high-dose narcotics and we have cut her narcotics down in the past but because of intense pain they have been titrated back up. She has an appointment next week with our pain clinic to consider pain pump implantation. [facility] History I have reviewed the patient's past medical history: Yes Medical History: Reports:: Cardiomyopathy, Deep Vein Thrombosis, Hyperlipidemia, Hypertension Denies:: Cancer, Diabetes Mellitus Type 1, Diabetes Mellitus Type 2, Internal Pacemaker, MRSA, Seizures *Have you ever received a pneumonia vaccine?: No *Have you received a flu vaccine this season?: No Other Medical History: Reports: Arthritis Laterality Cases: Right: Arthroscopy Knee, Bilateral: Tonsillectomy Other Surgeries: Yes: Appendectomy, Cholecystectomy, Colonoscopy, Hysterectomy-Total, Other (BLE vericose veins). No: Pacemaker Amputation: No Fractures: No - *Social History Last grade of school completed: High school graduate Smoking Status: Never smoker Alcohol Intake: never Alcohol Intake Frequency:: other *Occupational Status:: retired Housing: house Household Members: other *Travel in the last 8 weeks: None Family Hx:: Unable to obtain Review of Systems - Review of Systems Review of systems:: pertinent systems reviewed and negative unless documented below Patient denies cardiopulmonary systems problems. Her main concern today is that she is not in a proper hospital gown. Meds Home Medications Medication Instructions Recorded Confirmed Type aspirin 81 mg tablet,delayed 81 mg PO DAILY 05/21/17 10/17/20 History release atenolol 50 mg tablet 50 mg PO HS 05/21/17 10/17/20 History cyanocobalamin (vitamin B-12) 2,500 mcg PO DAILY tab 05/21/17 10/17/20 History 1,000 mcg tablet furosemide 20 mg tablet 20 mg PO BID tab 05/21/17 10/17/20 History lisinopril 20 mg tablet 10 mg PO DAILY 05/21/17 10/17/20 History Trazodone HCl 25 mg PO HS 05/16/20 10/17/20 History Gabapentin [Gabapentin 300mg Cap] 300 mg PO QID 10/06/20 10/17/20 History Escitalopram Oxalate 5 mg PO HS 10/17/20 10/17/20 History Hydrocodone/Acetaminophen 1 tab PO QIDP PRN 10/17/20 10/17/20 History [Hydrocodone-Acetamin 10-325 mg] Sulfamethoxazole/Trimethoprim 1 tab PO BID 10/17/20 10/17/20 History [Sulfamethoxazole-Tmp Ds Tablet*] Allergies Allergy/AdvReac Type Severity Reaction Status Date / Time No Known Allergies Allergy Verified 10/17/20 15:20
[2020-10-18 09:08] LABS: Basophils % 0.6 % (0.1-2.0); Eosinophils # 0.2 K/mm3 (0.0-0.4); Eosinophils % 2.2 % (0.1-12.0); Hematocrit 33.6 % (37.0-47.0); Hemoglobin 9.5 g/dL (12.2-16.2); Lymphocytes # 0.8 K/mm3 (0.7-4.5); Lymphocytes % 9.8 % (10-50); Mean Corpuscular HGB Conc 28.4 g/dL (31.8-35.4); Mean Corpuscular Hemoglobin 20.8 pg (27.0-31.2); Mean Corpuscular Volume 73.3 fl (81-99); Mean Platelet Volume 9.5 fl (7.4-10.4); Monocytes # 0.4 K/mm3 (0.1-1.0); Monocytes % 5.2 % (1.7-9.3); Neutrophils # 6.2 K/mm3 (1.8-7.8); Neutrophils % 82.3 % (37.0-80.0); Platelet Count 180 K/mm3 (142-424); Red Blood Count 4.58 M/mm3 (4.20-5.40); Red Cell Distribution Width 18.4 % (11.5-17.5); White Blood Count 7.6 K/mm3 (4.8-10.8)
[2020-10-18 09:18] LABS: Anion Gap 9.6 mEq/L (5-15); Blood Urea Nitrogen 13 mg/dl (7-17); Calcium 8.1 mg/dl (8.4-10.2); Carbon Dioxide 38 mmol/L (22.0-30.0); Chloride 98 mmol/L (98-107); Creatinine Clearance Estimated 28 mL/min (50-200); Estimated Glomerular Filt Rate 68 ml/min (>60); GFR (African American) 82 ML/MIN (>60); Glucose 109 mg/dl (74-100); Potassium 3.6 mmoL/L (3.5-5.1); Sodium 142 mmol/L (136-145)
[2020-10-18 09:28] LABS: NT Pro Brain Natriuretic Pep. 5160 pg/mL (0-450)
--- NOTE | 2020-10-18 14:12 | HMH.PTEV ---
Physical Therapy Evaluation Rehab PT IP Evaluation Start: 10/18/20 11:27 Freq: ONCE Status: Active Protocol: Document 10/18/20 14:04 TIFFANY (Rec: 10/18/20 14:12 TIFFANY [id number]) Subjective/History History History THis is the inital IP PT evaluation for Karla Garcia. Pt goes by Darya . Pt is well known to therapist from [facility] and prior PT. Pt was living alone until earlier when she had COVID. Pt now lives w/ daughter. Pt was using SPC as AD but does have walker. Pt PLOF was modified independent w/ ADL's and IADL's Subjective Subjective Pt recognizes therapist and is able to tell PT name, Bday, situation and year. Pt did become belligerent w/ daughter during evaluation. Rehab PT IP Eval Objective Appearance Patient Behavior Sedated,Fatigued Patient Orientation Name,Birthday,Year,Situation Difficulty following instructions mild Speech Pattern Appropriate Ambulation Patient Able to Ambulate Yes Ambulation Observation IP General Gait Pattern Observation Shuffling Step Ambulation Distance (feet) 2 Ambulation Assistive Device None Ambulation Ability Contact Guard/Hand Hold Balance Ability to Arise Able, uses arms to help Sitting Balance Leans or slides in chair Standing Balance Unsteady Dynamic Sitting Balance Ability Fair Dynamic Standing Balance Ability Fair Transfers Bed Transfer Ability Contact Guard/Hand Hold Sit to Stand Bed Transfer Ability Contact Guard/Hand Hold ROM All Extremities PT ROM Status WFL MMT All Extremities PT MMT WFL Rehab PT IP prob,goals,plan Problems Date of Evaluation: 10/18/20 PT IP Problems Transfers,Gait,Balance,Self care,Safety Rehab Potential Rehab Potential Fair Equipment Needs Assistive Devices Rolling / Wheeled Walker Plan PT Intervention Plan Transfers,Gait,Balance,Self care,Safety,Therapeutic Exercise PT Plan Frequency BID Duration LOS Discharge Goals Bed Transfer Ability Supervision/Stand by Sit to Stand Chair Transfer Ability Supervision/Stand by Ambulation Assistive Device
--- NOTE | 2020-10-18 14:31 | HMH.PHAINT ---
MEDICATION RECONCILIATION COMPLETED USING EXTERNAL PHARMACY FILL HISTORY AND LIST FROM MD OFFICE.
--- NOTE | 2020-10-18 14:45 | HMH.OTEV ---
OT Inpatient Evaluation Rehab OT IP Evaluation Start: 10/18/20 11:27 Freq: ONCE Status: Complete Protocol: Document 10/18/20 14:30 DORA (Rec: 10/18/20 14:45 DORA [id number]) Rehab OT IP Assessment Subjective History *Admission Date: 10/17/20 *Chief complaint: Mental status changes *History of present illness: 85-year-old white female with multiple medical problems who takes gabapentin, trazodone and 10 mg 4 times daily of [place] at home was at a restaurant in [place], [place] late on October 16 when after leaving the restaurant she had an episode of mental status changes and thrashing about in her car. She was unresponsive to verbal stimuli and EMS was called who administered Narcan on the way to the [facility]. In the [place] emergency department records reflect that she was out of control and was given several doses of Geodon because of her mental status changes and combativeness. On-call physician was called who accepted patient in transfer to [facility] because [place] didn't have any ICU beds. The patient arrived on second floor in our stepdown unit in soft restraints and with minimally responsive mental status. Over the next 12 hours patient has awoken, and has cleared and is now alert and oriented x2, a little fuzzy about the date. She does not remember anything about her last 24 hours except leaving the restaurant after she ate. There was some discussion that she may have taken extra
--- NOTE | 2020-10-18 14:48 | PC.NURSE ---
Report called to Haroon LemusRN , pt transferred by bed to room 214 @ 1440
--- NOTE | 2020-10-18 17:58 | PC.NURSE ---
Pt has been pleasant and cooperative this shift. Alert to person and place. No complaints of pain or SOA. Pt is currently receiving O2 via NC @ 3 LPM with sats. >90%. Lung sounds are diminished. 1+ edema noted to BLE. Skin is C/D/I. Pt has been turned/repositioned Q2H this shift. Pt is incontinent of bowel/bladder and a brief is in place. Urine is clear and yellow. 2 medium-sized, brown, loose stools today. Appetite is good and pt eats the majority of all meals. 22 G peripheral IV in the RT wrist is patent and infusing LR @ 75 ML/HR. VSS. Call light within reach. Will continue to monitor.
[2020-10-19 04:00] VITALS: BP 153/75; PULSE 72; RESP 18; TEMP 36.6; O2SAT 94
[2020-10-19 05:00] VITALS: BMI 40.4
--- NOTE | 2020-10-19 07:54 | HMH.ACPN2 ---
Internal Medicine - PN: Subj *Date: 10/19/20 *Time: 13:18 Interval history: Ms. Garcia has struggled to breathe overnight. Stable oxygen saturation on 3 to 4 L nasal cannula however more somnolent today. Did not wear BiPAP overnight. Opens eyes and knows who she is and where she is but falls asleep easily and appears confused and fatigued. Daughter in the room with her, concerned her CO2 may be up again. I agree with this concern. No significant improvement with reduced pain medication doses. Has only received 1 dose of hydrocodone in the past 24 hours. Afebrile. Denies chest pain, nausea, vomiting. Complains of some mild shortness of breath. Exam Vital signs and Labs for Last 24 Hours: Temp Pulse Resp BP Pulse Ox 97.8 F 72 18 153/75 H 94 L 10/19/20 04:00 10/19/20 04:00 10/19/20 04:00 10/19/20 04:00 10/19/20 04:00 Laboratory Results - last 24 hr 10/18/20 08:56: WBC 7.6, RBC 4.58, Hgb 9.5 L, Hct 33.6 L, MCV 73.3 L, MCH 20.8 L, MCHC 28.4 L, RDW 18.4 H, Plt Count 180, MPV 9.5, Neut % (Auto) 82.3 H, Lymph % (Auto) 9.8 L, [place] % (Auto) 5.2, Eos % (Auto) 2.2, Baso % (Auto) 0.6, Neut # (Auto) 6.2, Lymph # (Auto) 0.8, [place] # (Auto) 0.4, Eos # (Auto) 0.2, Baso # (Auto) 0.0 10/18/20 08:56: Sodium 142, Potassium 3.6, Chloride 98, Carbon Dioxide 38 H, Anion Gap 9.6, BUN 13 D, Creatinine 0.80 D, Estimated Creat Clear 28, Estimated GFR 68, Est GFR ( Amer) 82 D, Glucose 109 H, Calcium 8.1 L 10/18/20 08:56: NT-Pro-B Natriuret Pep 5160 H I & O for Last 24 hours: Intake & Output 10/16/20 10/17/20 10/18/2021 23:59 23:59 23:59 23:59 Intake Total 0 / 0 1837 / 1837 Output Total 300 / 300 550 / 550 Balance -300 / -300 1287 / 1287 Weight 94.2 kg 93.4 kg 93.242 kg - Constitutional mild distress, morbidly obese, disheveled - *Routine HEENT Exam Head: Present: normocephalic Eye: Present: EOMI, PERRL ENT: Present: mucous membranes moist - *Routine Neck Exam Present: supple. Absent: lymphadenopathy - *Routine Respiratory Exam Present: crackles (worse left base), diminished air movement - *Routine Cardiovascular Exam Present: RRR - *Routine Abdominal Exam Present: soft, normoactive bowel sounds. Absent: tenderness - *Routine Extremities Exam Present: edema (trace BLE). Absent: cyanosis, clubbing - *Routine Skin Exam Present: warm. Absent: rash - *Routine Neurological Exam Present: alert Oriented to person and place, disoriented to time, situation. Slow to respond to questions. Assessment and Plan (1) Encephalopathy acute Status: Resolved Category: Medical Code(s): G93.40 - Encephalopathy, unspecified (2) Obesity (BMI 30-39.9) Status: Chronic Category: Medical Code(s): E66.9 - Obesity, unspecified (3) Chronic use of opiate drug for therapeutic purpose Status: Chronic Category: Medical Code(s): Z79.891 - intermediate (current) use of opiate analgesic (4) Hypercapnic respiratory failure Status: Acute Qualifiers: Chronicity: acute Qualified Code(s): J96.02 - Acute respiratory failure with hypercapnia Category: Medical Code(s): J96.92 - Respiratory failure, unspecified with hypercapnia (5) Pneumonia Status: Acute Category: Medical Code(s): J18.9 - Pneumonia, unspecified organism (6) Chronic anemia Status: Chronic Category: Medical Code(s): D64.9 - Anemia, unspecified - Assessment and plan all Dx Assessment and Plan for all problems:: 85-year-old female who presented with confusion and concern for medication overuse. Has been required oxygen, diagnosed with left lower lobe pneumonia, but showing persistent encephalopathy this morning even in light of decreased pain med usage. Evaluation today concerning for worsening hypercarbia and respiratory acidosis. Initiated on BiPAP. Will monitor closely through the day with repeat blood gas this afternoon to assess response. -Continue antibiotics for community-acquired pneumonia
[2020-10-19 08:00] VITALS: BP 166/70; PULSE 72; RESP 20; TEMP 36.9; O2SAT 93
[2020-10-19 09:11] LABS: ABG Base Excess 10.3 mmol/L (-2.4-2.3); ABG HCO3 38.1 mmhg (22.0-26.0); ABG Oxygen Saturation 88 % (90-100); ABG PH 7.22 mmol/L (7.35-7.45); ABG PO2 61.8 mmhg (80-100); ABG TCO2 41.1 mmhg (23-27)
[2020-10-19 09:12] LABS: Allen's Test Acceptable; Oxygen 3L %; Source Right Radial
[2020-10-19 09:13] LABS: ABG PCO2 96.4 mmhg (35.0-45.0)
[2020-10-19 09:33] VITALS: RESP 20; RESP 24
[2020-10-19 12:11] LABS: Calcium, Ionized 4.6 mg/dL (4.5-5.6)
[2020-10-19 14:35] LABS: ABG Base Excess 15.1 mmol/L (-2.4-2.3); ABG HCO3 40.7 mmhg (22.0-26.0); ABG Oxygen Saturation 96 % (90-100); ABG PH 7.35 mmol/L (7.35-7.45); ABG PO2 79.4 mmhg (80-100); Oxygen 45% %; Vent Rate 20
[2020-10-19 14:36] LABS: Allen's Test ACCEPTABLE; Source R RADIAL
[2020-10-19 14:37] LABS: ABG PCO2 74.9 mmhg (35.0-45.0)
--- NOTE | 2020-10-19 15:53 | PC.NURSE ---
Pt has been pleasant and cooperative this shift. Alert to person only. No complaints of pain or SOA. Pt is currently receiving O2 via BiPap. Lungs CTA. 1+ edema noted to BLE. Skin is C/D/I. Pt has been turned/repositioned Q2H this shift. Pt is incontinent of bowel/bladder and a brief is in place. Urine is clear and yellow. 1 large, brown, loose BM today. Appetite is fair and pt eats about 50% of all meals. Pt ambulates with assistance X2 and sat up in the recliner for a couple of hours this AM. 22 G peripheral IV in the RT wrist is patent and infusing LR @ 75 ML/HR. VSS. Call light within reach. Will continue to monitor.
[2020-10-19 16:00] VITALS: BP 156/73; PULSE 66; RESP 20; TEMP 36.8; O2SAT 97
[2020-10-19 20:00] VITALS: BP 143/72; PULSE 77; RESP 18; TEMP 36.8; O2SAT 91
[2020-10-19 20:30] VITALS: RESP 22
[2020-10-20] VITALS (9 sets, daily range): BP systolic 137–164; BP diastolic 64–93; PULSE 61–86; RESP 18–28; TEMP 36.3–36.9; O2SAT 90–96; BMI 41.1
--- NOTE | 2020-10-20 05:05 | PC.NURSE ---
pt has rested semi well throughout shift, pt remains alert and oriented to place and person, pt wore bipap from [id number] pt became anxious pulling at mask and requested the mask be removed at 429, bipap was removed at that time per resp and pt put on 3.5L NC, , mild crackles noted throughout lungs, pt becomes short of breath with activity and talking, pt respirations are equal and unlabored at rest, heart remains regular, +1 pitting edema noted to BLE, pt refuses to wear teds, bs x4 quads, bed alarm in place and functioning, call light within reach, no needs at this time will continue to monitor
--- NOTE | 2020-10-20 06:15 | PC.NURSE ---
pt very SOB at this time with labored respirations noted,o2 saturation 85% on 4L NC, pt anxious yelling for help, RN at bedside deep breathing encouraged, pt agrees to wear bipap at this time, respiratory therapy notified to apply bipap at this time will continue to monitor at this time
[2020-10-20 07:22] LABS: Chloride 96 mmol/L (98-107)
[2020-10-20 07:23] LABS: Basophils % 0.5 % (0.1-2.0); Eosinophils % 0.4 % (0.1-12.0); Hematocrit 36.1 % (37.0-47.0); Hemoglobin 9.8 g/dL (12.2-16.2); Lymphocytes # 0.7 K/mm3 (0.7-4.5); Lymphocytes % 9.9 % (10-50); Mean Corpuscular HGB Conc 27.1 g/dL (31.8-35.4); Mean Corpuscular Hemoglobin 20.5 pg (27.0-31.2); Mean Corpuscular Volume 75.6 fl (81-99); Mean Platelet Volume 8.9 fl (7.4-10.4); Monocytes # 0.4 K/mm3 (0.1-1.0); Monocytes % 5.9 % (1.7-9.3); Neutrophils # 5.9 K/mm3 (1.8-7.8); Neutrophils % 83.3 % (37.0-80.0); Platelet Count 177 K/mm3 (142-424); Potassium 3.5 mmoL/L (3.5-5.1); Red Blood Count 4.78 M/mm3 (4.20-5.40); Red Cell Distribution Width 18.3 % (11.5-17.5); Sodium 143 mmol/L (136-145); White Blood Count 7.1 K/mm3 (4.8-10.8)
[2020-10-20 07:25] LABS: Alanine Aminotransferase 11 U/L (12-78); Aspartate Amino Transferase 21 U/L (14-36); Blood Urea Nitrogen 11 mg/dl (7-17); Creatinine Clearance Estimated 28 mL/min (50-200); Estimated Glomerular Filt Rate 68 ml/min (>60); GFR (African American) 82 ML/MIN (>60)
[2020-10-20 07:26] LABS: Albumin Level 3.4 g/dl (3.5-5.0); Albumin/Globulin Ratio 1.2 (1.1-1.8); Alkaline Phosphatase 127 U/L (38-126); Bilirubin,Total 0.5 mg/dl (0.2-1.3); Calcium 8.8 mg/dl (8.4-10.2); Globulin 2.8 g/dL (1.3-3.2); Glucose 118 mg/dl (74-100); Magnesium 1.8 mg/dl (1.6-2.3); Total Protein,Serum 6.2 g/dl (6.3-8.2)
[2020-10-20 07:33] LABS: Anion Gap 10.5 mEq/L (5-15)
--- NOTE | 2020-10-20 07:54 | XR_ITS ---
PROCEDURE: XR CHEST PORTABLE CLINICAL HISTORY: dyspnea COMPARISON: CT CT CHEST WO CON from 03/12/2020 CR XR CHEST PORTABLE from 03/24/2020 CR XR CHEST PORTABLE from 05/15/2020 CR XR CHEST PORTABLE from 10/17/2020 FINDINGS: Patient is rotated toward the right. There is cardiomegaly with prominent mediastinum similar to the previous exam. There is mild prominence of the pulmonary vessels. Opacification noted in the left lung base which may be related to pneumonia with effusion. This is somewhat worse. No acute bony abnormalities. IMPRESSION: Worsening opacification in the left lower lobe which may be due to pneumonia with effusion Mild CHF Dictated by: Uriel Posada MD 10/20/2020 11:36 Uriel Posada MD in OV 10/20/2020 11:36
--- NOTE | 2020-10-20 07:54 | PC.NURSE ---
LATE ENTRY [id number]- spoke to naveen contreras regarding pt's co2. verified pt's , name and room number [id number]-notified jose martin during rounds, NNO
--- NOTE | 2020-10-20 07:54 | HMH.ACPN2 ---
Internal Medicine - PN: Subj *Date: 10/20/20 *Time: 07:54 Interval history: Patient in bed with BiPAP, remains talkative, wants to get off the mask, continues to be somewhat dyspneic. Exam Vital signs and Labs for Last 24 Hours: Temp Pulse Resp BP Pulse Ox 97.7 F 62 22 150/70 H 96 10/20/20 03:35 10/20/20 03:35 10/20/20 03:35 10/20/20 03:35 10/20/20 03:35 Laboratory Results - last 24 hr 10/17/20 15:46: Ionized Calcium 4.6 10/19/20 08:35: Specimen Source Right radial, O2 % 3l, ABG pH 7.22 L*, ABG pCO2 96.4 H, ABG pO2 61.8 L, ABG HCO3 38.1 H, ABG Total CO2 41.1 H, ABG O2 Saturation 88 L, ABG Base Excess 10.3 H, Uriel Test Acceptable 10/19/20 13:17: Specimen Source R radial, O2 % 45%, ABG pH 7.35, ABG pCO2 74.9 H, ABG pO2 79.4 L, ABG HCO3 40.7 H, ABG Total CO2 43.0 H, ABG O2 Saturation 96, ABG Base Excess 15.1 H, Uriel Test Acceptable, Vent Rate 20, Tidal Volume bipap 18/8 10/20/20 06:40: WBC 7.1, RBC 4.78, Hgb 9.8 L, Hct 36.1 L, MCV 75.6 L, MCH 20.5 L, MCHC 27.1 L, RDW 18.3 H, Plt Count 177, MPV 8.9, Neut % (Auto) 83.3 H, Lymph % (Auto) 9.9 L, [place] % (Auto) 5.9, Eos % (Auto) 0.4, Baso % (Auto) 0.5, Neut # (Auto) 5.9, Lymph # (Auto) 0.7, Person # (Auto) 0.4, Eos # (Auto) 0.0, Baso # (Auto) 0.0 I & O for Last 24 hours: Intake & Output 10/17/20 10/18/20 10/19/20 10/20/20 11:59 11:59 11:59 11:59 Intake Total 1057 / 1057 1020 / 1020 2712 / 2712 Output Total 850 / 850 0 / 0 1200 / 1200 Balance 207 / 207 1020 / 1020 1512 / 1512 Weight 207 lb 10.807 oz 205 lb 14.588 oz 205 lb 9 oz 209 lb 7.026 oz Narrative: Anterior lung parham have some rhonchi, fairly well expanded but the posterior parham have crackles bilaterally. Heart rate regular. Abdomen soft. She is globally weak, talkative, and wants to get off the mask. No significant swelling. 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 If we can switch her over to facemask or trilogy device that would certainly be beneficial and far as discharge planning. Continue antibiotics. Given patient's significant COPD and respiratory failure patient would benefit from ongoing trilogy noninvasive ventilatory device as she does need volume ventilation to treat respiratory failure. Would not be able to tolerate higher pressure of BiPAP over the long-term.
[2020-10-20 07:55] LABS: Carbon Dioxide 40 mmol/L (22.0-30.0)
--- NOTE | 2020-10-20 11:00 | SW/DCPLANNER ---
Addendum entered by Cecile William 10/22/20 06:41: THE PLAN IS FOR THIS PATIENT TO DISCHARGE HOME TODAY WITH HOSPICE CARE ONCE EQUIPMENT IS SET UP... DAUGHTER AT BEDSIDE WHILE HOSPICE EXPLAINED SERVICES, PATIENT AND DAUGHTERS AGREED WITH THE PLAN... WILL SEND HER ONCE THEY NOTIFY ME EVERYTHING SHE NEEDS IS IN THE HOME... Addendum entered by Cecile William 10/21/20 09:39: FAMILY HAS DECLINED THE BED AT [facility] WHEN THEY FOUND OUT THAT VISITATION POLICY STATES AT THE PRESENT TIME NO VISITORS DAUGHTER WAS VERY UPSET AND HAS DECIDED TO SPEAK WITH HOSPICE AND SEE IF THEY CAN HELP HER TO TAKE HER MOTHER HOME...SAMRA YANEZ FROM HOSPICE IS COMING UP TO THE HOSPITAL TO SEE PATIENT AND DAUGHTER TODAY AND COME UP WITH A PLAN...MAY DISCHARGE IN THE AM IF EVERYTHING CAN BE SET UP.... Addendum entered by Cecile William 10/21/20 06:33: PATIENT HAS BEEN ACCEPTED TO [facility], I SPOKE WITH DEMETRI AND SHE STATED THEY CAN NOT USE THE TRILOGY THERE BUT PATIENT CAN HAVE THE BI-PAP... I HAD ORDERED THE TRILOGY AND CALLED [facility] AND TOLD THEM TO CANCEL THAT ORDER SINCE PATIENT AND DAUGHTER FEELS ITS BEST FOR PATIENT TO GO FOR SOME SKILLED REHAB BEFORE RETURNING BACK HOME...DR HENRY STATED IF ALL IS WELL WITH HER SHE MAY DISCHARGE THERE TODAY.. WILL SEE ONCE HE MAKES ROUNDS.... Addendum entered by Cecile William 10/20/20 11:10: SENT REFERRAL FOR A TRILOGY ON THIS PATIENT TO BE BROUGHT UP FOR PATIENT TO SLEEP ON IT TONIGHT TO SEE IF SHE CAN TOLERATE WEARING IT BEFORE DISCHARGING HER TO A NURSING FACILITY FOR SKILLED CARE... Original Note: SENT REFERRAL TO [facility] FOR A SKILLED STAY WITH A DISPOSITION IN THE AM ([facility]) PENDING NO SETBACKS... WAITING TO HEAR TO WHETHER SHE HAS BEEN ACCEPTED...
--- NOTE | 2020-10-20 17:46 | PC.NURSE ---
Spoke to pt's family regarding discharge plans. With the new COVID policies for SNF, family is now refusing transfer. Family is interested in bringing pt back home. MD Hoyos updated and spoke w/ family. Hospice was brought up in the conversation, family will discuss whether or not they want to go that route.
--- NOTE | 2020-10-20 17:48 | PC.NURSE ---
Pt has had a poor appetite this shift, only eating a few bites with each meal. Pt was a x1-2 assist transferring to and from recliner this shift. Pt did well w/ PT as well. Pt was placed on 4L NC during the day-o2 sats between 90-95%. Pt has been confused intermittently, confusion increased later this afternoon. RT has placed pt back on bipap-o2 sat 92 @ this time. Family has remained at bedside. No other acute changes or complaints at this time. Will continue to monitor.
[2020-10-21] VITALS (8 sets, daily range): BP systolic 135–174; BP diastolic 59–84; PULSE 60–84; RESP 18–22; TEMP 36.2–36.6; O2SAT 90–97; BMI 40.4
--- NOTE | 2020-10-21 05:36 | PC.NURSE ---
Patient has been cooporative most of this shift. Has worn Bipap without trying to pull it off. Has been offered water to drink and pain medication administered x 1 dose. Call light within reach, bed at lowest level for safety; will continue to monitor.
[2020-10-21 06:03] LABS: Chloride 97 mmol/L (98-107); Potassium 3.9 mmoL/L (3.5-5.1); Sodium 142 mmol/L (136-145)
[2020-10-21 06:05] LABS: Basophils % 0.4 % (0.1-2.0); Eosinophils % 0.5 % (0.1-12.0); Hematocrit 35.3 % (37.0-47.0); Hemoglobin 9.9 g/dL (12.2-16.2); Lymphocytes # 0.7 K/mm3 (0.7-4.5); Lymphocytes % 10.7 % (10-50); Mean Corpuscular HGB Conc 28.1 g/dL (31.8-35.4); Mean Corpuscular Hemoglobin 20.8 pg (27.0-31.2); Mean Corpuscular Volume 73.9 fl (81-99); Mean Platelet Volume 8.4 fl (7.4-10.4); Monocytes # 0.4 K/mm3 (0.1-1.0); Monocytes % 6.5 % (1.7-9.3); Neutrophils # 5.3 K/mm3 (1.8-7.8); Neutrophils % 81.8 % (37.0-80.0); Platelet Count 141 K/mm3 (142-424); Red Blood Count 4.78 M/mm3 (4.20-5.40); Red Cell Distribution Width 18.6 % (11.5-17.5); White Blood Count 6.5 K/mm3 (4.8-10.8)
[2020-10-21 06:06] LABS: Blood Urea Nitrogen 11 mg/dl (7-17); Calcium 8.7 mg/dl (8.4-10.2); Creatinine Clearance Estimated 28 mL/min (50-200); Estimated Glomerular Filt Rate 95 ml/min (>60); GFR (African American) 115 ML/MIN (>60); Glucose 112 mg/dl (74-100)
[2020-10-21 06:13] LABS: Anion Gap 9.9 mEq/L (5-15); Carbon Dioxide 39 mmol/L (22.0-30.0)
--- NOTE | 2020-10-21 08:32 | HMH.ACPN2 ---
Internal Medicine - PN: Subj *Date: 10/21/20 *Time: 08:32 Interval history: Over the last 24 hours patient situation is changed in a couple of ways. She has actually improved a little bit vis-?-vis oxygenation and her hypercapnia and has been able to be off BiPAP through most of the night. This morning she is alert, pleasant. Little bit disoriented about the date but is excited about getting up in the chair and eating her breakfast. Her family had initially decided to pursue long-term care/evaluation at [facility] but with the increase in Covid cases and the reduction in visitation from family members that all the local [facility] have enacted they are now wishing to pursue other options beside long-term care so they can spend some time with her. 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 Exam Vital signs and Labs for Last 24 Hours: Temp Pulse Resp BP Pulse Ox 97.9 F 70 20 174/79 H 97 10/21/20 08:00 10/21/20 08:00 10/21/20 08:00 10/21/20 08:00 10/21/20 08:00 Laboratory Results - last 24 hr 10/21/20 05:38: WBC 6.5, RBC 4.78, Hgb 9.9 L, Hct 35.3 L, MCV 73.9 L, MCH 20.8 L, MCHC 28.1 L, RDW 18.6 H, Plt Count 141 L, MPV 8.4, Neut % (Auto) 81.8 H, Lymph % (Auto) 10.7, Major % (Auto) 6.5, Eos % (Auto) 0.5, Baso % (Auto) 0.4, Neut # (Auto) 5.3, Lymph # (Auto) 0.7, Major # (Auto) 0.4, Eos # (Auto) 0.0, Baso # (Auto) 0.0 10/21/20 05:38: Sodium 142, Potassium 3.9, Chloride 97 L, Carbon Dioxide 39 H, Anion Gap 9.9, BUN 11, Creatinine 0.60 D, Estimated Creat Clear 28, Estimated GFR 95, Est GFR ( Amer) 115 D, Glucose 112 H, Calcium 8.7 I & O for Last 24 hours: Intake & Output 10/18/20 10/19/20 10/20/20 10/21/20 11:59 11:59 11:59 11:59 Intake Total 1057 / 1057 1020 / 1020 2712 / 2712 792 / 792 Output Total 850 / 850 0 / 0 1200 / 1200 Balance 207 / 207 1020 / 1020 1512 / 1512 792 / 792 Weight 205 lb 14.588 oz 205 lb 9 oz 209 lb 7.026 oz 206 lb 2.115 oz Narrative: Patient is lying in bed on nasal cannula, pleasant and talkative. Oriented to self and place. Lungs have poor air movement but rhonchi bilaterally. Heart rate regular. Abdomen soft, obese. Extremities without edema or clubbing, seems to be comfortable in her nasal cannula. ENT exam moist and clear. 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 Combination of body habitus, posture, chronic COPD and medications causing hypercapnia seem to be slightly improved. Daughter is in the room and we once again discussed hospice care we will. We will officially make a consult today. They will consult with other family members, possible discharge home tomorrow if hospice is involved.
--- NOTE | 2020-10-21 14:15 | P.PN_ITS ---
Internal Medicine - PN: Subj *Date: 10/21/20 *Time: 14:15 Exam Vital signs and Labs for Last 24 Hours: Temp Pulse Resp BP Pulse Ox 97.9 F 70 20 174/79 H 97 10/21/20 08:00 10/21/20 08:00 10/21/20 08:00 10/21/20 08:00 10/21/20 08:00 Laboratory Results - last 24 hr 10/21/20 05:38: WBC 6.5, RBC 4.78, Hgb 9.9 L, Hct 35.3 L, MCV 73.9 L, MCH 20.8 L , MCHC 28.1 L, RDW 18.6 H, Plt Count 141 L, MPV 8.4, Neut % (Auto) 81.8 H, Lymph % (Auto) 10.7, [place] % (Auto) 6.5, Eos % (Auto) 0.5, Baso % (Auto) 0.4, Neut # (Auto) 5.3, Lymph # (Auto) 0.7, [place] # (Auto) 0.4, Eos # (Auto) 0.0, Baso # (Auto) 0.0 10/21/20 05:38: Sodium 142, Potassium 3.9, Chloride 97 L, Carbon Dioxide 39 H, Anion Gap 9.9, BUN 11, Creatinine 0.60 D, Estimated Creat Clear 28, Estimated GFR 95, Est GFR ( Amer) 115 D, Glucose 112 H, Calcium 8.7 I & O for Last 24 hours: Intake & Output 10/18/20 10/19/20 10/20/20 10/21/20 23:59 23:59 23:59 23:59 Intake Total 1837 / 1837 2041 / 2041 1171 / 1171 532 / 532 Output Total 550 / 550 1000 / 1000 200 / 200 Balance 1287 / 1287 1041 / 1041 971 / 971 532 / 532 Weight 93.4 kg 93.242 kg 95 kg 93.5 kg Assessment and Plan (1) Encephalopathy acute Status: Resolved Category: Medical Code(s): G93.40 - Encephalopathy, unspecified (2) Obesity (BMI 30-39.9) Status: Chronic Category: Medical Code(s): E66.9 - Obesity, unspecified (3) Chronic use of opiate drug for therapeutic purpose Status: Chronic Category: Medical Code(s): 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 (4) Hypercapnic respiratory failure Status: Acute Qualifiers: Chronicity: acute Qualified Code(s): J96.02 - Acute respiratory failure with hypercapnia Category: Medical Code(s): J96.92 - Respiratory failure, unspecified with hypercapnia (5) Pneumonia Status: Acute Category: Medical Code(s): J18.9 - Pneumonia, unspecified organism (6) Chronic anemia Status: Chronic Category: Medical Code(s): D64.9 - Anemia, unspecified The patient's infection will respond to the chosen ABx?: Yes Is the patient receiving the right drug, dose, and route?: Yes Could a more targeted ABx be ordered?: No (SP[facility]UM ORDERED FOR PT)
--- NOTE | 2020-10-21 17:20 | PC.NURSE ---
Dr. Hoyos made aware that IV was pulled out this morning at approx 0900. Dr. Hoyos is aware and stated to leave out.
--- NOTE | 2020-10-21 20:03 | PC.NURSE ---
Pt has slept most of shift, with bipap in use. Pt isn't eating well or drinking well. Bipap used this shift r/t sats being in high 80's on 5 L and mouth breathing. Pt now on 5 L currently nasal cannula. Has been alert to person and place. Dr. Hoyos has been updated on pt's status. Pt did have hospice consult today. Bed alarm in use and cb in reach.
[2020-10-22] VITALS: BP 157/85; PULSE 60; RESP 22; TEMP 36; O2SAT 95
--- NOTE | 2020-10-22 03:26 | PC.NURSE ---
At the beginning of shift pt. able to state name, , year, and place; pt. became increasingly confused t/o the shift and is only alert to self; pt. can occasionally state needs. Pt. compliant with bipap approx 4 then refused bipap and placed back on nc. O2 sat 90-94% on 5l nc.
[2020-10-22 04:00] VITALS: BP 186/94; PULSE 62; RESP 20; TEMP 36.4; O2SAT 88
[2020-10-22 05:00] VITALS: BMI 40.3
--- NOTE | 2020-10-22 07:35 | HMH.DCSUM ---
General - General Admission date:: 10/19/20 Discharge date: 10/22/20 HPI HPI: 85-year-old white female with multiple medical problems who takes gabapentin, trazodone and 10 mg 4 times daily of [place] at home was at a restaurant in [place], [place] late on October 16 when after leaving the restaurant she had an episode of mental status changes and thrashing about in her car. She was unresponsive to verbal stimuli and EMS was called who administered Narcan on the way to the [facility]. In the [facility] emergency department records reflect that she was out of control and was given several doses of Geodon because of her mental status changes and combativeness. On-call physician was called who accepted patient in transfer to [facility] because [facility] didn't have any ICU beds. The patient arrived on second floor in our stepdown unit in soft restraints and with minimally responsive mental status. Over the next 12 hours patient has awoken, and has cleared and is now alert and oriented x2, a little fuzzy about the date. She does not remember anything about her last 24 hours except leaving the restaurant after she ate. There was some discussion that she may have taken extra pills at the restaurant but she denies this and her daughter-who was not at the restaurant-reports that there was really no way this could've happened as her daughter monitors all of her medication. Please note that this patient has had a couple episodes of mental status changes before that we have attributed to high-dose narcotics and we have cut her narcotics down in the past but because of intense pain they have been titrated back up. She has an appointment next week with our pain clinic to consider pain pump implantation. Hospital Course Hospital Course: Ms. Garcia was admitted for respiratory failure and confusion. Concern for pneumonia as well as medication adverse event. Has unfortunately had poor clinical response to treatment and necessitating BiPAP nightly to maintain adequate CO2 levels for somewhat improved mentation. Extensive discussion during hospitalization with family about goals of care. Her family had initially decided to pursue long-term care/evaluation at [facility] but with the increase in Covid cases and the reduction in visitation from family members that all the local nursing homes have enacted they are now wishing to pursue other options beside long-term care so they can spend some time with her. Family desires to pursue hospice given patient's rapid decline over the past 1 to 2 weeks. We will plan to discharge her home with hospice. Continue BiPAP at home for comfort. Family at bedside this morning, updated of plan. On exam this morning Ms. Garcia was more confused. Opened eyes to verbal and physical stimuli but did not respond verbally to interview. She appears gravely ill and I suspect is imminent. Examined on day of discharge. Objective Vital signs: Temp Pulse Resp BP Pulse Ox 97.6 F 62 20 186/94 H 88 L 10/22/20 04:00 10/22/20 04:00 10/22/20 04:00 10/22/20 04:00 10/22/20 04:00 Narrative: Patient is lying in bed on nasal cannula, alert but not talkative. Appears more confused this morning. Lungs have poor air movement, right worse than left. Crackles lower left side Heart rate regular. Abdomen soft, obese. Extremities without edema or clubbing, seems to be comfortable on her nasal cannula. DS: Diagnosis - Discharge Diagnosis (1) Encephalopathy acute Status: Acute (2) Obesity (BMI 30-39.9) Status: Chronic (3) Chronic use of opiate drug for therapeutic purpose Status: Chronic (4) Hypercapnic respiratory failure Status: Acute (5) Pneumonia Status: Acute (6) Chronic anemia Status: Chronic Discharge Plan - Patient Discharge Instructions ACTIVITY: Continue current activity DIET: continue same diet Patient Instructions: Encephalopathy,
[2020-10-22 07:42] VITALS: BP 162/75; PULSE 68; RESP 18; TEMP 36.7; O2SAT 99
== END 2020-10-22 13:35 | disposition hospice, home (50) | DRG 193 ==
LOC: 2ND 12:36 → ICU 16:42 → 2ND 10-18 14:28
PROVIDERS: Internal Medicine Adolescent Medicine; Admitting Provider Family Medicine; PCP Internal Medicine Adolescent Medicine; Visit Provider Internal Medicine Adolescent Medicine
DX: J18.9 Pneumonia, unspecified organism (principal); J96.02 Acute respiratory failure with hypercapnia; G93.40 Encephalopathy, unspecified; Z68.41 Body mass index [BMI] 40.0-44.9, adult; Z20.822 Contact with and (suspected) exposure to COVID-19; E66.9 Obesity, unspecified; Z66 Do not resuscitate; Z78.1 Physical restraint status; Z51.5 Encounter for palliative care; D64.89 Other specified anemias
CPT/HCPCS: 36415; 70450; 71045; 80048; 80053; 81001; 82140; 82330; 82803; 83605; 83735; 83880; 84443; 84484; 85007; 85025; 93005; 94660; 97110; 97162; 97165; 97530; G0378; U0003